=== PATIENT | male | born 1950 | race Caucasian/White ===

== ENCOUNTER 2016-12-31 17:09 | Inpatient (IN) | payer OTHER ==
[2016-12-31] MEDS ORDERED: PROVENTIL IH ONE (22:15)
[2016-12-31] MEDS ORDERED: ATROVENT IH ONE (22:16)
[2017-01-01] MEDS ORDERED: ROCEPHIN/NS 1 GM/50 ML 1 GM/50 ML BAG IV ONE (00:41)
[2017-01-01] MEDS ORDERED: ZITHROMAX PO ONE (00:41)
[2017-01-01] MEDS ORDERED: TYLENOL PO ONE (00:41)
--- NOTE | 2017-01-01 00:41 | Emergency Department Report ---
<PADMINI KELLY - Last Filed: 01/01/17 02:16> ED Chest Pain HPI - General Chief Complaint: Abdominal Pain Stated Complaint: COLD SX/ BODY PAIN Time Seen by Provider: 12/31/16 22:54 - Related Data Home Medications Medication Instructions Recorded Confirmed Last Taken No Known Home Medications [No 12/31/16 12/31/16 Unknown Reported Home Medications] Allergies Allergy/AdvReac Type Severity Reaction Status Date / Time No Known Allergies Allergy Unverified 12/31/16 17:43 ED Review of Systems ROS: Stated complaint: COLD SX/ BODY PAIN Other details as noted in HPI ED Past Medical Hx - Medications Home Medications: Home Medications Medication Instructions Recorded Confirmed Last Taken Type No Known Home Medications [No 12/31/16 12/31/16 Unknown History Reported Home Medications] ED Course Vital Signs 12/31/16 12/31/16 12/31/16 17:47 22:45 22:53 Temperature 97.4 F L Pulse Rate 97 H Pulse Rate [ 95 H 102 H Anterior Bilateral Throughout] Respiratory 17 Rate Respiratory 16 18 Rate [Anterior Bilateral Throughout] Blood Pressure 161/86 O2 Sat by Pulse 97 Oximetry 01/01/17 01:34 Temperature Pulse Rate Pulse Rate [ Anterior Bilateral Throughout] Respiratory 18 Rate Respiratory Rate [Anterior Bilateral Throughout] Blood Pressure O2 Sat by Pulse 97 Oximetry ED Medical Decision Making - Lab Data Result diagrams: 01/01/17 00:47 01/01/17 00:47 Critical care attestation.: If time is entered above; I have spent that time in minutes in the direct care of this critically ill patient, excluding procedure time. ED Disposition Clinical Impression: Pneumonia, Hyponatremia, Hypokalemia Disposition: OP ADMITTED IP TO THIS HOSP Is pt being admited?: Yes Condition: Stable Referrals: PRIMARY CARE, [Primary Care Provider] - 3-5 Days Time of Disposition: 02:17 (Dr Chun/hosp) <YAW JEFFERSON - Last Filed: 01/01/17 02:32> ED Chest Pain HPI - General Source: family Mode of arrival: Ambulatory Limitations: Language Barrier - History of Present Illness Initial Comments: 66-year-old male past medical history none,Pt speaks German. I called the celery stripper service, log #[id number]. Patient denies any past medical history denies smoking drinking or drug use no past surgical history denies any drug allergies. Patient states that for 4 days he has had fever chills and productive cough with yellowish greenish sputum. Patient denies any recent travel. States he has fevers chills body aches and feels generally weak. Patient states he has had chest pain after coughing fits. Has been taking over- the-counter Tylenol and cough medicine with minimal to no relief of his symptoms. Patient is accompanied by both his daughter and his both also speak German and speaks very little to no [place] Citizen. I utilized the celery stripper to speak to the patient in the presence of his family. Patient is awake alert and oriented 3 but states he feels very weak. Onset/Timin -: days(s) Onset: during rest, awoke with symptoms Pain Location: left chest Pain Radiation: none Severity: moderate Severity scale (0 -10): 7 Quality: dull Consistency: constant Improves With: medication-other re: dyspnea Other Symptoms: cough (ovqg-dnf-ocgiwod cold medicine), fever Treatments Prior to Arrival: other (ywci-imt-hraatzx cold medicines) Aspirin use within the Past 7 Days: (0) No AMOS score - Amos Score Age > 65: (1) Yes Aspirin use within the Past 7 Days: (0) No 3 or more CAD Risk Factors: (0) No 2 or more Angina events in past 24 hrs: (1) Yes Known CAD with more than 50% Stenosis: (0) No Elevated Cardiac Markers: (0) No ST Deviation Greater than 0.5mm: (0) No AMOS Score: 2 ED Review of Systems Constitutional: chills, fever, malaise Eyes: denies: eye pain, eye discharge, vision change ENT: denies: ear pain, throat pain Respiratory: cough Cardiovascular: denies: chest pain, palpitations Endocrine: no symptoms reported Gastrointestinal: denies: abdominal pain, nausea, diarrhea Genitourinary: denies: urgency, dysuria Musculoskeletal: denies: back pain, joint swelling, arthralgia Skin: denies: rash, lesions Neurological: denies: headache, weakness, paresthesias Psychiatric: denies: anxiety, depression Hematological/Lymphatic: denies: easy bleeding, easy bruising ED Past Medical Hx - Past Medical History Previous Medical History?: No - Surgical History Past Surgical History?: No - Social History Smoking Status: Never Smoker Substance Use Type: None ED Physical Exam - General Limitations: Language Barrier General appearance: alert, other (patient is somewhat sleepy but arousable) - Head Head exam: Present: atraumatic, normocephalic - Eye Eye exam: Present: normal appearance, PERRL, EOMI - ENT ENT exam: Present: normal exam, mucous membranes moist - Neck Neck exam: Present: normal inspection, full ROM - Respiratory Respiratory exam: Present: respiratory distress, rhonchi (patient has audible rhonchi left lung field) - Cardiovascular Cardiovascular Exam: Present: regular rate, normal rhythm. Absent: systolic murmur, diastolic murmur, rubs, gallop - GI/Abdominal GI/Abdominal exam: Present: soft, normal bowel sounds - Rectal Rectal exam: Present: deferred - Extremities Exam Extremities exam: Present: normal inspection - Back Exam Back exam: Present: normal inspection - Neurological Exam Neurological exam: Present: alert, oriented X3, CN II-XII intact - Psychiatric Psychiatric exam: Present: normal affect, normal mood - Skin Skin exam: Present: warm, dry, intact, normal color. Absent: rash ED Medical Decision Making - Lab Data Result diagrams: 01/01/17 00:47 01/01/17 00:47 - Medical Decision Making A/P: Community-acquired pneumonia, electrolyte abnormalities, chest pain 1-PORT/PSI Score: 113 points Risk Class IV, 8.2-9.3% mortality. Hospitalization recommended based on risk. 2-I discussed case with and Dr. Ferraro hospitalist. Decision to admit and treat patient empirically based on symptoms and lab/radiology findings 3-will replete patient's volume with normal saline and lactated Ringer's maintenance fluid, we'll replete potassium with IV and by mouth potassium, will add magnesium supplementation to absorb potassium. We'll utilize lactated Ringer's in order to restore volume and electrolyte imbalances seen on patient labs 4-patient meets SIRS criteria, qSOFA score 0, no need for ICU as of YET 5- given patient's electrolyte abnormalities will send legionella antigen. Strep and influenza negative
--- NOTE | 2017-01-01 00:50 | XRay Report ---
FINAL REPORT EXAM: XR CHEST ROUTINE 2V HISTORY: cough, SOB COMPARISON: None available. FINDINGS:: Frontal and lateral views of the chest obtained. Heart normal in size. Patchy interstitial and airspace opacity left mid to lower lung with possible trace effusion concerning for pneumonia. Smaller patchy interstitial opacity medial right lung base. No pneumothorax. Mild degenerative changes of the thoracic spine. IMPRESSION:: Findings concerning for bibasilar pneumonia more pronounced on the left.
[2017-01-01] MEDS ORDERED: NACL 0.9% 500 ML 500 ML IV ONE (01:12)
[2017-01-01 01:22] LABS: Basophils % (Auto) 0.1 % (0.0-1.8); Hematocrit 37.2 % (35.5-45.6); Hemoglobin 11.8 gm/dl (11.8-15.2); Mean Corpuscular HGB Conc 32 % (32-34); Mean Corpuscular Volume 72 fl (84-94); Platelet Count 170 K/mm3 (140-440); Red Cell Distribution Width 14.8 % (13.2-15.2); White Blood Count 8.3 K/mm3 (4.5-11.0)
[2017-01-01 01:27] LABS: Mean Corpuscular Hemoglobin 23 pg (28-32)
[2017-01-01 01:46] LABS: Anion Gap 17 mmol/L; Blood Urea Nitrogen 13 mg/dL (9-20); Calcium 8.3 mg/dL (8.4-10.2); Carbon Dioxide 24 mmol/L (22-30); Chloride 90.4 mmol/L (98-107); Glucose 185 mg/dL (75-100); Potassium 3.2 mmol/L (3.6-5.0); Sodium 128 mmol/L (137-145)
[2017-01-01] MEDS ORDERED: ZOFRAN IV ONE (01:51)
[2017-01-01] MEDS ORDERED: MAGNESIUM SULFATE 2GM/50ML 2 GM/50 ML BAG IV ONE (01:51)
[2017-01-01] MEDS ORDERED: KCL 10MEQ/100ML 10 MEQ/100 ML BAG IV ONE (01:52)
[2017-01-01 02:05] LABS: Alanine Aminotransferase 39 units/L (7-56); Albumin 4.1 g/dL (3.9-5); Alkaline Phosphatase 75 units/L (35-129); Bilirubin,Total 0.4 mg/dL (0.1-1.2); Creatine Kinase 170 units/L (55-170); Total Protein 8.2 g/dL (6.3-8.2)
[2017-01-01 02:06] LABS: Bilirubin,Direct < 0.2 mg/dL (0-0.2); Bilirubin,Indirect 0.2 mg/dL; Creatine Kinase MB < 1.0 ng/mL (0.0-4.0)
[2017-01-01] MEDS ORDERED: LACTATED RINGERS 1,000 ML ONE (02:21)
[2017-01-01] MEDS ORDERED: K-DUR PO ONE (02:25)
[2017-01-01] MEDS: LACTATED RINGERS 1,000 ML IV SCH ×2 (02:48→14:39)
--- NOTE | 2017-01-01 03:06 | History and Physical Report ---
History of Present Illness Date of examination: 01/01/17 Chief complaint: Cough History of present illness: 66-year-old [place] man with no significant past medical history presented to the emergency department with complaints of cough productive of yellowish to greenish sputum, fever, chills, generalized weakness and pleuritic chest pain. Patient took [id number]-wdzblwy pain medication and cough medications with no improvement. REVIEW OF SYSTEMS: GENERAL: no weight change, +fatigue, +fever HEAD: no head ache EYES: no blurry vision, no acute visual loss EARS: no hearing loss, no discharge, no earache NOSE: no stuffiness, no sneezing, no discharge MOUTH, THROAT AND NECK: no bleeding gums, no sore throat, no swollen neck CARDIAC: no palpitations, no dyspnea on exertion, no orthopnea, no PND, no edema , no chest pain RESPIRATORY: + shortness of breath, no wheeze, + cough, + sputum, no hemoptysis , no asthma GI: no decreased appetite, no nausea, no vomiting, no dysphagia, no diarrhea, no constipation, no abdominal pain URINARY: no change in frequency, no urgency, no polyuria, no hematuria, no incontinence MUSCULOSKELETAL: no muscle weakness, no pain, no joint stiffness NEUROLOGIC: no loss of sensation/numbness, no tingling, no tremors, no weakness/ paralysis HEMATOLOGIC: no anemia, no easy bruising SKIN: no rashes ENDOCRINE: no heat/cold intolerance, no polyuria, no polydipsia, no thyroid problems, no diabetes PSYCHIATRIC: no anxiety, no depression, no suicidal ideations Past History Past Medical History: No medical history Past Surgical History: No surgical history Social history: full code. denies: smoking, alcohol abuse, IV drug use Family history: no significant family history Medications and Allergies Allergies Allergy/AdvReac Type Severity Reaction Status Date / Time No Known Allergies Allergy Unverified 12/31/16 17:43 Home Medications Medication Instructions Recorded Confirmed Last Taken Type No Known Home Medications [No 12/31/16 12/31/16 Unknown History Reported Home Medications] Active Meds: Active Medications Enoxaparin Sodium (Lovenox) 30 mg SUB-Q QDAY DIANNA Lactated Ringer's (Lactated Ringers) 1,000 mls @ 125 mls/hr IV DIRECT DIANNA Last Admin: 01/01/17 02:48 Dose: 125 mls/hr Azithromycin 500 mg/ Sodium (Chloride) 250 mls @ 250 mls/hr IV Q24HR DIANNA Ceftriaxone Sodium (Rocephin/Ns 1 Gm/50 Ml) 1 gm in 50 mls @ 100 mls/hr IV Q12HR DIANNA PRN Reason: Protocol Exam - Physical Exam Narrative exam: Not in cardiopulmonary distress. The patient appeared well nourished and normally developed. Vital signs as documented. Head exam is unremarkable. No scleral icterus . Neck is without jugular venous distension, thyromegaly, or carotid bruits. Lungs are significant for bibasilar crepitations. Cardiac exam reveals regular rate and Rhythm. First and second heart sounds normal. No murmurs, rubs or gallops. Abdominal exam reveals normal bowel sounds, no masses, no organomegaly and no aortic enlargement. Extremities are nonedematous and both femoral and pedal pulses are normal. PORTAL DEVELOPER: Alert and oriented 3. No focal weakness. - Constitutional Vitals: Temp Pulse Resp BP Pulse Ox 97.4 F L 102 H 18 161/86 97 12/31/16 17:47 12/31/16 22:53 01/01/17 01:34 12/31/16 17:47 01/01/17 01:34 Results - Labs CBC & Chem 7: 01/01/17 00:47 01/01/17 00:47 Labs: Laboratory Last Values WBC 8.3 K/mm3 (4.5-11.0) 01/01/17 00:47 RBC 5.20 M/mm3 (3.65-5.03) H 01/01/17 00:47 Hgb 11.8 gm/dl (11.8-15.2) 01/01/17 00:47 Hct 37.2 % (35.5-45.6) 01/01/17 00:47 MCV 72 fl (84-94) L 01/01/17 00:47 MCH 23 pg (28-32) L 01/01/17 00:47 MCHC 32 % (32-34) 01/01/17 00:47 RDW 14.8 % (13.2-15.2) 01/01/17 00:47 Plt Count 170 K/mm3 (140-440) 01/01/17 00:47 Lymph % (Auto) 7.5 % (13.4-35.0) L 01/01/17 00:47 [place] % (Auto) 4.1 % (0.0-7.3) 01/01/17 00:47 Eos % (Auto) 0.0 % (0.0-4.3) 01/01/17 00:47 Baso % (Auto) 0.1 % (0.0-1.8) 01/01/17 00:47 Lymph # 0.6 K/mm3 (1.2-5.4) L 01/01/17 00:47 [place] # 0.3 K/mm3 (0.0-0.8) 01/01/17 00:47 Eos # 0.0 K/mm3 (0.0-0.4) 01/01/17 00:47 Baso # 0.0 K/mm3 (0.0-0.1) 01/01/17 00:47 Seg Neutrophils % 88.3 % (40.0-70.0) H 01/01/17 00:47 Seg Neutrophils # 7.3 K/mm3 (1.8-7.7) 01/01/17 00:47 VBG pH 7.401 (7.320-7.420) 01/01/17 00:47 Sodium 128 mmol/L (137-145) L 01/01/17 00:47 Potassium 3.2 mmol/L (3.6-5.0) L 01/01/17 00:47 Chloride 90.4 mmol/L (98-107) L 01/01/17 00:47 Carbon Dioxide 24 mmol/L (22-30) 01/01/17 00:47 Anion Gap 17 mmol/L 01/01/17 00:47 BUN 13 mg/dL (9-20) 01/01/17 00:47 Creatinine 1.3 mg/dL (0.8-1.5) 01/01/17 00:47 Estimated GFR 55 ml/min 01/01/17 00:47 BUN/Creatinine Ratio 10.00 % 01/01/17 00:47 Glucose 185 mg/dL (75-100) H 01/01/17 00:47 Lactic Acid 2.5 mmol/L (0.7-2.0) H* 01/01/17 00:47 Calcium 8.3 mg/dL (8.4-10.2) L 01/01/17 00:47 Magnesium 1.8 mg/dL (1.7-2.3) 01/01/17 01:57 Total Bilirubin 0.4 mg/dL (0.1-1.2) 01/01/17 00:47 Direct Bilirubin < 0.2 mg/dL (0-0.2) 01/01/17 00:47 Indirect Bilirubin 0.2 mg/dL 01/01/17 00:47 AST 49 units/L (5-40) H 01/01/17 00:47 ALT 39 units/L (7-56) 01/01/17 00:47 Alkaline Phosphatase 75 units/L (35-129) 01/01/17 00:47 Total Creatine Kinase 170 units/L (55-170) 01/01/17 00:47 CK-MB (CK-2) < 1.0 ng/mL (0.0-4.0) 03 00:47 Troponin T < 0.010 ng/mL (0.00-0.029) 01/01/17 00:47 NT-Pro-B Natriuret Pep 482.5 pg/mL (0-900) 01/01/17 00:47 Total Protein 8.2 g/dL (6.3-8.2) 01/01/17 00:47 Albumin 4.1 g/dL (3.9-5) 01/01/17 00:47 Albumin/Globulin Ratio 1.0 % 01/01/17 00:47 - Imaging and Cardiology Chest x-ray: report reviewed (bibasilar infiltrates) Assessment and Plan Assessment and plan: Bilateral basilar pneumonia Severe sepsis - Elevated lactic acid level - Chest x-ray significant for bibasilar pneumonia - Patient is on IV ceftriaxone, azithromycin - Oxygen support DVT prophylaxis - Lovenox Disposition - admit to medical floor Advance Directives: Yes VTE prophylaxis?: Chemical Plan of care discussed with patient/family: Yes
[2017-01-01 04:55] LABS: Bilirubin,Urine NEG (Negative); Blood,Urine NEG (Negative); Ketones,Urine TR mg/dL (Negative); Leukocyte Esterase,Urine NEG (Negative); Mucus,Urine FEW /HPF; Nitrite,Urine NEG (Negative); Urobilinogen,Urine < 2.0 mg/dL (<2.0)
--- NOTE | 2017-01-01 08:33 | Admit Criteria Form ---
Admission Criteria Documentation: SEVERE SEPSIS Clinical Indications for Admission to Inpatient Care (Place 'X' for any and all applicable criteria): Hospital admission is needed for appropriate care of the patient because of ANY ONE of the following: []I. Hemodynamic instability indicated by ANY ONE of the following(1)(2)(3)(4 )(5): []a. Vital sign abnormality not readily corrected by appropriate treatment within 12 to 24 hours indicated by ANY ONE of the following: []i) Tachycardia that persists despite appropriate treatment []ii) Hypotension that persists despite appropriate treatment []iii) Orthostatic vital sign changes that persist despite appropriate treatment [X]b. Vital sign abnormality that is severe indicated by ANY ONE of the following: [X]i.Inadequate perfusion indicated by ANY ONE of the following : [X]1) Lactic acidosis (greater than 2 mmol/L) []2) New abnormal capillary refill (greater than 3 seconds) []3) Reduced urine output []4) New altered mental status []5) Myocardial Ischemia []ii. Mean arterial pressure [A] less than 60 mm Hg []iii. Mean arterial pressure[A] less than 70 mm Hg after 30 minutes of appropriate treatment (eg, fluid resuscitation) []iv. Sustained heart rate greater than 120 beats per minute in adult []v. IV inotropic or vasopressor medication required to maintain adequate blood pressure or perfusion []II. Systemic or infectious condition causing severe symptoms or findings not responsive to emergency or observation care treatment (as appropriate) indicated by ANY ONE of the following: []a. Cardiac arrhythmias of immediate concern(1)(2)(3) []b. Severe endocrine disorder (eg, thyrotoxicosis, adrenal insufficiency)(4)(5) []c. Seizures (eg, new or recurrent)(6) []d. New-onset end organ failure or dysfunction as indicated by ANY ONE of the following: []i. Acute unexplained hypoxemia (eg, not from lung infection or chronic disease)(7)(8)(9) []ii. Acute renal failure as indicated by new onset of ANY ONE of the following(10)(11)(12)(13)(14): []1) 3-fold rise in serum creatinine from baseline []2) Serum creatinine greater than 4 mg/dL (354 micromoles/L) with acute rise greater than 0.5 mg/dL (44.2 micromoles/L) []3) Reduction of more than 75% in estimated glomerular filtration rate from baseline. []4) Estimated glomerular filtration rate less than 35 mL/min/1.73m2 ( 0.59 mL/sec/1.73m2) in child younger than 18 years. []5) Cessation of urine output indicated by ALL of the following: []A. Adequate volume status []B. Inadequate urine output as indicated by ANY ONE of the following: []a. Urine output less than 0.3 mL/kg/hr for 24 hours []b. Anuria (urine output less than 0.1 mL/kg/hr) for 12 hours []iii. Acute mental status changes(15) []iv. Acute hepatic failure (eg, plasma bilirubin greater than 4 mg/ dL (68 micromoles/L), new INR greater than 2.0)(16)(17) []e. Unmanageable nausea and vomiting(18) []f. New-onset or uncontrolled central diabetes insipidus(19)(20) []g. Clinically significant dehydration(18)(21) []h. Hypoglycemia(22) []i. Acidosis (pH less than 7.35) or alkalosis (pH greater than 7.45)( 22)(23) []j. Toxic drug level that indicates need for specific monitoring or treatment(24)(25) [X]k. Severe electrolyte abnormalities indicated by ALL of the following (1)(2)(3): [X]i. Electrolytes and associated findings are not as expected for patient baseline or acceptable treatment effects. [X]ii. Severe abnormalities indicated by ANY ONE of the following: [X]1) Sodium less than 130 mEq/L (mmol/L) (new) []2) Sodium less than 135 mEq/L (mmol/L) with ANY ONE of the following: []A. Uncorrectable (to near normal or chronic baseline) after trial of outpatient and emergency treatment []B. Altered mental status []C. Seizures []D. Severe medical etiology requiring inpatient management (eg , heart failure, hypovolemia) []3) Sodium greater than 155 mEq/L (mmol/L) []4) Sodium greater than 150 mEq/L (mmol/L) with ANY ONE of the following: []A. Uncorrectable (to near normal or chronic baseline) with outpatient and emergency treatment []B. Altered mental status []C. Seizures []D. Severe medical etiology (eg, hypovolemia, diabetes insipidus) []5) Potassium less than 2.5 mEq/L (mmol/L) despite outpatient and emergency treatment []6) Potassium less than 3 mEq/L (mmol/L) with ANY ONE of the following : []A. Weakness []B. Cardiac abnormality (eg, arrhythmia, conduction disturbance ) []C. Cardiac ischemia []D. Ileus []E. Ongoing medical cause requiring inpatient management (eg, acute renal wasting or SIADH) []F. Other severe symptoms []7) Potassium greater than 6.5 mEq/L (mmol/L) []8) Potassium greater than 5 mEq/L (mmol/L) with ANY ONE of the following: []A. Uncorrectable (to near normal or chronic baseline) with outpatient and emergency treatment []B. Severe ECG findings[A] []C. Acute worsening of renal failure (creatinine greater than 2.5 mg/dL (221 micromoles/L) or significant elevation for age and size) []D. Severe weakness []E. Severe medical etiology (eg, hemolysis, infection, drug overdose) []9) Calcium less than 7 mg/dL (1.75 mmol/L) despite outpatient and emergency treatment(5) []10) Calcium less than 8 mg/dL (2 mmol/L) with significant symptoms or findings (eg, altered mental status, muscle spasms, seizures, breathing difficulty, cardiac abnormality (eg, arrhythmia or conduction disturbance))(5) []11) Calcium greater than 14 mg/dL (3.5 mmol/L)(5) []12) Calcium greater than 12 mg/dL (3 mmol/L) with ANY ONE of the following(5): []A. Uncorrectable (to near normal or chronic baseline) with outpatient and emergency treatment []B. Significant dehydration or hypovolemia as indicated by ALL of the following(3)(6)(7): []a. Not resolved with initial treatments []b. Clinically significant dehydration as indicated by ANY ONE of the following: [](1) Vomiting refractory to outpatient treatment (ie, precluding oral rehydration) [](2) Inability to drink [](3) Hypernatremia or other electrolyte abnormality unable to be corrected with outpatient and emergency treatment [](4) Failure to remain hydrated with outpatient therapy [](5) Reduced urine output [](6) Hypotension [](7) Serious cause for dehydration requiring acute hospitalization ( eg, bowel obstruction, increased intracranial pressure, infectious cause) [](8) Child with ANY ONE of the following(8): [](i) Severe abdominal tenderness [](ii) Adequate care not available at home [](iii) Severe dehydration (greater than 9% loss of body weight) []C. Significant symptoms or findings (eg, altered mental status , cardiac abnormality (eg, arrhythmia, conduction disturbance), malignant etiology requiring inpatient treatment) []13) Phosphorus less than 1 mg/dL (0.32 mmol/L) []14) Phosphorus less than 1.5 mg/dL (0.48 mmol/L) with ANY ONE of the following: []A. Patient unresponsive to outpatient and emergency treatment []B. Significant symptoms or findings (eg, weakness, altered mental status, breathing difficulty, seizures, rhabdomyolysis) []15) Phosphorus greater than 10 mg/dL (3.2 mmol/L) []16) Phosphorus greater than 4.5 mg/dL (1.45 mmol/L) (new) with ANY ONE of the following: []A. Severe medical etiology (eg, crush injury, acute renal failure) []B. Associated hypocalcemia with significant findings (eg, neurologic symptoms, altered mental status, muscle spasms, seizures, breathing difficulty, cardiac abnormality (eg, arrhythmia, conduction disturbance)) []16) Magnesium less than 1 mg/dL (0.41 mmol/L) []17) Magnesium less than 1.5 mg/dL (0.62 mmol/L) with ANY ONE of the following: []A. Patient unresponsive to outpatient and emergency treatment []B. Associated hypocalcemia with significant findings (eg, altered mental status, muscle spasms, seizures, breathing difficulty, cardiac abnormality (eg, arrhythmia, conduction disturbance)) []C. Associated hypokalemia (potassium less than 3 mEq/L (mmol/L )) with risk of arrhythmia []18) Magnesium greater than 4 mEq/L (2 mmol/L) []19) Magnesium greater than 2.5 mEq/L (1.25 mmol/L) with significant symptoms or findings (eg, weakness, altered mental status, cardiac abnormality (eg, arrhythmia, conduction disturbance), breathing difficulty, severe medical etiology (eg, renal failure, hypovolemia)) []20) Uric acid greater than 20 mg/dL (1190 micromoles/L)(9) []21) Uric acid greater than 8 mg/dL (476 micromoles/L) with significant symptoms or findings of tumor lysis syndrome (eg, creatinine greater than 1.5 times upper limit of normal, cardiac abnormality (eg , arrhythmia, conduction disturbance), seizure)(9) [X]III. High fever or other high-risk infection situation as indicated by ANY ONE of the following(26)(27)(28): []a. Outpatient and observation care antimicrobial treatment unavailable, not effective, or not appropriate []b. Documented bacteremia []c. Temperature greater than 104.9 degrees F (40.5 degrees C) (oral) [X]d. Temperature greater than 103.1 degrees F (39.5 degrees C) (oral) or less than 96.8 degrees F (36 degrees C) (rectal) that does not respond to emergency treatment and observation care []IV. High-risk febrile neutropenia[A] as indicated by ANY ONE of the following(29)(30)(31)(32): []a. Profound neutropenia[B] anticipated to extend for more than 7 days []b. Hemodynamic instability []c. Hypoxemia []d. Tachypnea []e. Altered mental status []f. New-onset abdominal pain []g. New-onset vomiting or diarrhea []h. Oral or gastrointestinal mucositis that interferes with swallowing or causes severe diarrhea []i. Focal infection (eg, cellulitis, pneumonia, central line or catheter infection, perirectal abscess) []j. Renal insufficiency (eg, GFR of less than 30 mL/min/1.73m2 (0.5 mL/sec /1.73m2)). []k. Severe liver dysfunction (transaminase levels greater than 5 times normal) []l. Platelet count less than 50,000/mm3 (50 x109/L)(33) []m. Leukemia or lymphoma induction therapy []n. Leukemia not in complete remission or with evidence of disease progression []o. Bone marrow transplant patient []p. Alemtuzumab being used for therapy []q. [employer] Association for Supportive Care in Cancer (MASCC) Risk Index score of less than 21[C](33)(35). []V. Isolation required (eg, tuberculosis that requires isolation, Ebola infection)[D](36)(37)(38)(39)(40) []. Gangrene that requires treatment beyond emergency or observation level care(41)(42) []VII. Antitoxin administration and ongoing observation required (eg, tetanus, botulism)(43)(44) [X]. Suspected infection with rapid progression or severe symptoms as indicated by ANY ONE of the following(45): []a. Streptococcal or staphylococcal toxic shock(46) []b. Diphtheria(47) []c. Hantavirus(48) []d. Severe acute respiratory syndrome(8)(49) []e. Anthrax(50) []f. Ebola[D](36)(37)(38) []g. Necrotizing soft tissue infection(41)(42) []h. Plague(50) [X]i. Other suspected infection that requires care beyond emergency or observation level care []VII. Severe adverse drug or systemic toxin reaction as indicated by ANY ONE of the following(24): []a. Serotonin syndrome(51)(52) []b. Neuroleptic malignant syndrome(51)(52) []c. Cholinergic syndrome with severe symptoms (eg, bronchorrhea, weakness , mental status changes, seizures)(53) []d. Anticholinergic syndrome []e. Sympathetic syndrome with severe symptoms (eg, seizures, mental status changes, cardiac dysrhythmias) []f. Other severe adverse drug or systemic toxin reaction that remains after emergency or observation level care (as appropriate) []VIII. Allergic reaction with severe symptoms (not responsive to emergency or observation care treatment as appropriate), including ANY ONE of the following(54): []a. Airway edema (pharyngeal, epiglottic, or laryngeal edema) []b. Stridor []c. Respiratory failure []d. Bronchospasm []e. Hypotension []IX. Environmental emergency (not responsive to emergency or observation care treatment as appropriate) as indicated by ANY ONE of the following(55)(56): []a. Hyperthermia []b. Heat stroke []c. Heat exhaustion []d. Hypothermia (temperature less than 95 degrees F (35 degrees C) rectal) (57) []e. Electrocution(58) []X. Complications of transplanted organ (ie, not covered elsewhere)[E] indicated by ANY ONE of the following(59): []a. Acute graft rejection (or graft vs. host disease)[F] requiring inpatient management (eg, intravenous immunosuppression)(60)(61)(62)( 63) []b. Acute failure of transplanted organ necessitating inpatient care (eg, cannot be managed in other setting) []c. Infection requiring inpatient management (eg, Hemodynamic instability, need for intravenous antimicrobial treatment)(64)(65) []d. Other complication of transplanted organ requiring inpatient management []XI. Systemic or Infectious Condition condition, symptom, or finding for which emergency and observation care have failed or are not considered appropriate. See General Criteria: Observation Care, General Admission Criteria or Pediatric General Admission Criteria guideline as appropriate. (Contents from SEVERE SEPSIS and SYSTEMIC OR INFECTIOUS CONDITION clinical indications for admission to inpatient care have been integrated in this form) The [facility] content [facility] by [facility] has been revised. The portions of the content which have been revised are identified through the use of italic text or in bold and [facility] has neither reviewed nor approved the modified material. All other unmodified content is copyright [facility]. Please see references footnoted in the original [facility] edition 2016 Admission Criteria Met: Yes
[2017-01-01] MEDS ORDERED: LOVENOX SUB-Q SCH (10:00)
[2017-01-01] MEDS: LOVENOX SUB-Q SCH (14:37)
[2017-01-01] MEDS: ROCEPHIN/NS 1 GM/50 ML 1 GM/50 ML BAG IV SCH ×2 (14:38→21:50)
--- NOTE | 2017-01-01 15:21 | Event Note ---
Date: 01/01/17 Patient seen and evaluated in his room this morning medical records reviewed Admitted this morning with the bilateral pneumonia left more than right On IV antibiotics and supportive care Mild elevation of lactic acid probably secondary to sepsis Medical records reviewed Discussed with the nurse, no new events reported Continue current management Plan of care discussed with the patient as well as the nurse
[2017-01-01] MEDS: TYLENOL PO PRN (16:31)
[2017-01-01] MEDS: NACL 0.9% 1000 ML 1,000 ML IV SCH (18:13)
[2017-01-01] MEDS: ZITHROMAX 500 MG in NACL 0.9% 250ML 250 ML IV SCH (21:50)
[2017-01-02 05:28] LABS: Basophils % (Auto) 0.3 % (0.0-1.8); Hematocrit 37.7 % (35.5-45.6); Hemoglobin 11.8 gm/dl (11.8-15.2); Mean Corpuscular HGB Conc 31 % (32-34); Mean Corpuscular Volume 72 fl (84-94); Platelet Count 147 K/mm3 (140-440); Red Blood Count 5.25 M/mm3 (3.65-5.03); Red Cell Distribution Width 15.3 % (13.2-15.2)
[2017-01-02 05:34] LABS: Mean Corpuscular Hemoglobin 23 pg (28-32)
[2017-01-02 05:36] LABS: Anion Gap 16 mmol/L; BUN/Creatinine Ratio 11.81; Blood Urea Nitrogen 13 mg/dL (9-20); Calcium 7.6 mg/dL (8.4-10.2); Carbon Dioxide 25 mmol/L (22-30); Chloride 101.3 mmol/L (98-107); Glucose 148 mg/dL (75-100); Magnesium 2.1 mg/dL (1.7-2.3); Sodium 138 mmol/L (137-145)
[2017-01-02] MEDS: TYLENOL PO PRN ×2 (11:26→20:39)
[2017-01-02] MEDS: LOVENOX SUB-Q SCH (11:27)
[2017-01-02] MEDS: ROCEPHIN/NS 1 GM/50 ML 1 GM/50 ML BAG IV SCH ×2 (11:28→21:02)
[2017-01-02] MEDS: NACL 0.9% 1000 ML 1,000 ML IV SCH (11:29)
[2017-01-02] MEDS ORDERED: FLUARIX QUAD 2016-2017(36 MOS+) IM ONE (12:00)
[2017-01-02] MEDS ORDERED: PNEUMOVAX 23 IM ONE (12:00)
--- NOTE | 2017-01-02 17:18 | Progress Note ---
Assessment and Plan Assessment and plan: --Kaiden basal pneumonia Continue IV antibiotics, oxygen titrated to O2 sats more than 90%, nebulizers as needed Supportive care Follow up chest x-ray tomorrow to check for improvement , --Sepsis secondary to bilateral pneumonia/elevated lactic acid Follow cultures, continue current antibiotics ceftriaxone and azithromycin --Hyponatremia, corrected --Hypokalemia, corrected --DVT prophylaxis with Lovenox --Out of bed to chair and ambulate as tolerated --Full CODE STATUS Closely monitor the patient had just the management as needed Possible discharge in 1-2 days if stable History Interval history: Patient seen and evaluated medical records reviewed Patient feels better no new complaints Alert and awake not in acute distress Vital signs reviewed Hospitalist Physical - Constitutional Vitals: Temp Pulse Resp BP Pulse Ox 99.5 F 69 16 105/64 97 01/02/17 15:54 01/02/17 15:54 01/02/17 15:54 01/02/17 15:54 01/01/17 20:00 General appearance: Present: no acute distress, well-nourished - EENT Eyes: Present: PERRL, EOM intact - Neck Neck: Present: supple, normal ROM - Respiratory Respiratory effort: normal Respiratory: bilateral: diminished, rhonchi, negative: rales, wheezing - Cardiovascular Rhythm: regular Heart Sounds: Present: S1 & S2 - Extremities Extremities: no ischemia, pulses intact, pulses symmetrical Peripheral Pulses: within normal limits - Abdominal General gastrointestinal: soft, non-tender, non-distended, normal bowel sounds - Integumentary Integumentary: Present: clear, warm - Psychiatric Psychiatric: appropriate mood/affect, cooperative - Neurologic Neurologic: CNII-XII intact, moves all extremities Results - Labs CBC & Chem 7: 01/02/17 04:41 01/02/17 04:41 Labs: Laboratory Last Values WBC 6.0 K/mm3 (4.5-11.0) 01/02/17 04:41 RBC 5.25 M/mm3 (3.65-5.03) H 01/02/17 04:41 Hgb 11.8 gm/dl (11.8-15.2) 01/02/17 04:41 Hct 37.7 % (35.5-45.6) 01/02/17 04:41 MCV 72 fl (84-94) L 01/02/17 04:41 MCH 23 pg (28-32) L 01/02/17 04:41 MCHC 31 % (32-34) L 01/02/17 04:41 RDW 15.3 % (13.2-15.2) H 01/02/17 04:41 Plt Count 147 K/mm3 (140-440) 01/02/17 04:41 Lymph % (Auto) 15.7 % (13.4-35.0) 01/02/17 04:41 Nance % (Auto) 6.0 % (0.0-7.3) 01/02/17 04:41 Eos % (Auto) 0.0 % (0.0-4.3) 01/02/17 04:41 Baso % (Auto) 0.3 % (0.0-1.8) 01/02/17 04:41 Lymph # 0.9 K/mm3 (1.2-5.4) L 01/02/17 04:41 Nance # 0.4 K/mm3 (0.0-0.8) 01/02/17 04:41 Eos # 0.0 K/mm3 (0.0-0.4) 01/02/17 04:41 Baso # 0.0 K/mm3 (0.0-0.1) 01/02/17 04:41 Seg Neutrophils % 78.0 % (40.0-70.0) H 01/02/17 04:41 Seg Neutrophils # 4.7 K/mm3 (1.8-7.7) 01/02/17 04:41 VBG pH 7.401 (7.320-7.420) 01/01/17 00:47 Sodium 138 mmol/L (137-145) D 01/02/17 04:41 Potassium 4.0 mmol/L (3.6-5.0) D 01/02/17 04:41 Chloride 101.3 mmol/L (98-107) 01/02/17 04:41 Carbon Dioxide 25 mmol/L (22-30) 01/02/17 04:41 Anion Gap 16 mmol/L 01/02/17 04:41 BUN 13 mg/dL (9-20) 01/02/17 04:41 Creatinine 1.1 mg/dL (0.8-1.5) 01/02/17 04:41 Estimated GFR > 60 ml/min 01/02/17 04:41 BUN/Creatinine Ratio 11.81 % 01/02/17 04:41 Glucose 148 mg/dL (75-100) H 01/02/17 04:41 POC Glucose 128 (70-105) H 01/01/17 15:21 Lactic Acid 1.4 mmol/L (0.7-2.0) 01/02/17 04:41 Calcium 7.6 mg/dL (8.4-10.2) L 01/02/17 04:41 Magnesium 2.1 mg/dL (1.7-2.3) 01/02/17 04:41 Total Bilirubin 0.4 mg/dL (0.1-1.2) 01/01/17 00:47 Direct Bilirubin < 0.2 mg/dL (0-0.2) 01/01/17 00:47 Indirect Bilirubin 0.2 mg/dL 01/01/17 00:47 AST 49 units/L (5-40) H 01/01/17 00:47 ALT 39 units/L (7-56) 01/01/17 00:47 Alkaline Phosphatase 75 units/L (35-129) 01/01/17 00:47 Total Creatine Kinase 170 units/L (55-170) 01/01/17 00:47 CK-MB (CK-2) < 1.0 ng/mL (0.0-4.0) 01/01/17 00:47 Troponin T < 0.010 ng/mL (0.00-0.029) 01/01/17 00:47 NT-Pro-B Natriuret Pep 482.5 pg/mL (0-900) 01/01/17 00:47 Total Protein 8.2 g/dL (6.3-8.2) 01/01/17 00:47 Albumin 4.1 g/dL (3.9-5) 01/01/17 00:47 Albumin/Globulin Ratio 1.0 % 01/01/17 00:47 Urine Color Yellow (Yellow) 01/01/17 04:15 Urine Turbidity Clear (Clear) 01/01/17 04:15 Urine pH 5.0 (5.0-7.0) 01/01/17 04:15 Ur Specific Ceiba 1.023 (1.003-1.030) 01/01/17 04:15 Urine Protein 30 mg/dl mg/dL (Negative) 01/01/17 04:15 Urine Glucose (UA) 150 mg/dL (Negative) 01/01/17 04:15 Urine Ketones Tr mg/dL (Negative) 01/01/17 04:15 Urine Blood Neg (Negative) 01/01/17 04:15 Urine Nitrite Neg (Negative) 01/01/17 04:15 Ur Reducing Substances Not Reportable 01/01/17 04:15 Urine Bilirubin Neg (Negative) 01/01/17 04:15 Urine Ictotest Not Reportable 01/01/17 04:15 Urine Urobilinogen < 2.0 mg/dL (<2.0) 01/01/17 04:15 Ur Leukocyte Esterase Neg (Negative) 01/01/17 04:15 Urine WBC (Auto) 2.0 /HPF (0.0-6.0) 01/01/17 04:15 Urine RBC (Auto) 1.0 /HPF (0.0-6.0) 01/01/17 04:15 U Epithel Cells (Auto) < 1.0 /HPF (0-13.0) 01/01/17 04:15 Urine Mucus Few /HPF 01/01/17 04:15
[2017-01-02] MEDS: ZITHROMAX 500 MG in NACL 0.9% 250ML 250 ML IV SCH (23:17)
[2017-01-03] MEDS: TYLENOL PO PRN ×2 (02:31→14:07)
[2017-01-03] MEDS: NACL 0.9% 1000 ML 1,000 ML IV SCH ×2 (02:32→18:27)
[2017-01-03 05:20] LABS: Anion Gap 15 mmol/L; BUN/Creatinine Ratio 13.33; Blood Urea Nitrogen 12 mg/dL (9-20); Calcium 7.4 mg/dL (8.4-10.2); Carbon Dioxide 24 mmol/L (22-30); Chloride 99.6 mmol/L (98-107); Glucose 104 mg/dL (75-100); Potassium 3.7 mmol/L (3.6-5.0); Sodium 135 mmol/L (137-145)
--- NOTE | 2017-01-03 09:43 | XRay Report ---
Chest 2 views: Compared to 12/31/16. History: Followup of bilateral pneumonia. Findings: Normal cardiomediastinal silhouette. Trachea is midline. Reticular interstitial changes with honeycombing is noted in the left lower lobe. Other possibility would be multiple lung cysts or bulla localized to left lower lobe. Superimposed pneumonitis if present cannot be entirely excluded. No significant interval change compared to previous study. Right lung appears unremarkable. Impression: Findings as detailed above. Recommend CT scan for further evaluation.
[2017-01-03] MEDS: LOVENOX SUB-Q SCH (10:54)
[2017-01-03] MEDS: TUMS PO SCH ×2 (10:54→22:18)
[2017-01-03] MEDS: ROCEPHIN/NS 1 GM/50 ML 1 GM/50 ML BAG IV SCH ×2 (10:55→22:12)
[2017-01-03] MEDS ORDERED: NACL ONE ×2 (12:18→14:10)
[2017-01-03] MEDS ORDERED: PROVENTIL IH PRN (13:59)
--- NOTE | 2017-01-03 14:09 | Progress Note ---
Assessment and Plan Assessment and plan: --Kaiden basal pneumonia on IV antibiotics, oxygen titrated to O2 sats more than 90%, nebulizers as needed Supportive care Follow up chest x-ray reticuloendothelial/honeycombing appearance on the left side [facility] for assistance with management, --Sepsis secondary to bilateral pneumonia/elevated lactic acid/fever Follow cultures, continue current antibiotics ceftriaxone and azithromycin --Hyponatremia, hypokalemia Corrected --DVT prophylaxis with Lovenox --Out of bed to chair and ambulate as tolerated --Full CODE STATUS Closely monitor the patient had just the management as needed Possible discharge in 1-2 days if stable History Interval history: Patient seen and evaluated this morning medical records reviewed Patient feels better, however repeat chest x-ray show multiple findings consistent with left sided reticuloendothelial and honeycombing appearance ,With multiple cysts Patient is febrile Alert and awake not in acute distress Hospitalist Physical - Constitutional Vitals: Temp Pulse Resp BP Pulse Ox 99.4 F 88 20 126/78 98 01/03/17 05:21 01/02/17 22:59 01/02/17 22:59 01/02/17 22:59 01/02/17 22:59 General appearance: Present: no acute distress, well-nourished - EENT Eyes: Present: PERRL, EOM intact - Neck Neck: Present: supple, normal ROM - Respiratory Respiratory effort: normal Respiratory: bilateral: diminished, rhonchi, negative: rales, wheezing - Cardiovascular Rhythm: regular Heart Sounds: Present: S1 & S2 - Extremities Extremities: no ischemia, pulses intact, pulses symmetrical Peripheral Pulses: within normal limits - Abdominal General gastrointestinal: soft, non-tender, non-distended, normal bowel sounds - Integumentary Integumentary: Present: clear, warm - Psychiatric Psychiatric: appropriate mood/affect, cooperative - Neurologic Neurologic: CNII-XII intact, moves all extremities Results - Labs CBC & Chem 7: 01/02/17 04:41 01/03/17 04:34 Labs: Laboratory Last Values WBC 6.0 K/mm3 (4.5-11.0) 01/02/17 04:41 RBC 5.25 M/mm3 (3.65-5.03) H 01/02/17 04:41 Hgb 11.8 gm/dl (11.8-15.2) 01/02/17 04:41 Hct 37.7 % (35.5-45.6) 01/02/17 04:41 MCV 72 fl (84-94) L 01/02/17 04:41 MCH 23 pg (28-32) L 01/02/17 04:41 MCHC 31 % (32-34) L 01/02/17 04:41 RDW 15.3 % (13.2-15.2) H 01/02/17 04:41 Plt Count 147 K/mm3 (140-440) 01/02/17 04:41 Lymph % (Auto) 15.7 % (13.4-35.0) 01/02/17 04:41 [place] % (Auto) 6.0 % (0.0-7.3) 01/02/17 04:41 Eos % (Auto) 0.0 % (0.0-4.3) 01/02/17 04:41 Baso % (Auto) 0.3 % (0.0-1.8) 01/02/17 04:41 Lymph # 0.9 K/mm3 (1.2-5.4) L 01/02/17 04:41 [place] # 0.4 K/mm3 (0.0-0.8) 01/02/17 04:41 Eos # 0.0 K/mm3 (0.0-0.4) 01/02/17 04:41 Baso # 0.0 K/mm3 (0.0-0.1) 01/02/17 04:41 Seg Neutrophils % 78.0 % (40.0-70.0) H 01/02/17 04:41 Seg Neutrophils # 4.7 K/mm3 (1.8-7.7) 01/02/17 04:41 VBG pH 7.401 (7.320-7.420) 01/01/17 00:47 Sodium 135 mmol/L (137-145) L 01/03/17 04:34 Potassium 3.7 mmol/L (3.6-5.0) 01/03/17 04:34 Chloride 99.6 mmol/L (98-107) 01/03/17 04:34 Carbon Dioxide 24 mmol/L (22-30) 01/03/17 04:34 Anion Gap 15 mmol/L 01/03/17 04:34 BUN 12 mg/dL (9-20) 01/03/17 04:34 Creatinine 0.9 mg/dL (0.8-1.5) 01/03/17 04:34 Estimated GFR > 60 ml/min 01/03/17 04:34 BUN/Creatinine Ratio 13.33 % 01/03/17 04:34 Glucose 104 mg/dL (75-100) H 01/03/17 04:34 POC Glucose 128 (70-105) H 01/01/17 15:21 Lactic Acid 1.4 mmol/L (0.7-2.0) 01/02/17 04:41 Calcium 7.4 mg/dL (8.4-10.2) L 01/03/17 04:34 Magnesium 2.1 mg/dL (1.7-2.3) 01/02/17 04:41 Total Bilirubin 0.4 mg/dL (0.1-1.2) 01/01/17 00:47 Direct Bilirubin < 0.2 mg/dL (0-0.2) 01/01/17 00:47 Indirect Bilirubin 0.2 mg/dL 01/01/17 00:47 AST 49 units/L (5-40) H 01/01/17 00:47 ALT 39 units/L (7-56) 01/01/17 00:47 Alkaline Phosphatase 75 units/L (35-129) 01/01/17 00:47 Total Creatine Kinase 170 units/L (55-170) 01/01/17 00:47 CK-MB (CK-2) < 1.0 ng/mL (0.0-4.0) 01/01/17 00:47 Troponin T < 0.010 ng/mL (0.00-0.029) 01/01/17 00:47 NT-Pro-B Natriuret Pep 482.5 pg/mL (0-900) 01/01/17 00:47 Total Protein 8.2 g/dL (6.3-8.2) 01/01/17 00:47 Albumin 4.1 g/dL (3.9-5) 01/01/17 00:47 Albumin/Globulin Ratio 1.0 % 01/01/17 00:47 Urine Color Yellow (Yellow) 01/01/17 04:15 Urine Turbidity Clear (Clear) 01/01/17 04:15 Urine pH 5.0 (5.0-7.0) 01/01/17 04:15 Ur Specific [place] 1.023 (1.003-1.030) 01/01/17 04:15 Urine Protein 30 mg/dl mg/dL (Negative) 01/01/17 04:15 Urine Glucose (UA) 150 mg/dL (Negative) 01/01/17 04:15 Urine Ketones Tr mg/dL (Negative) 01/01/17 04:15 Urine Blood Neg (Negative) 01/01/17 04:15 Urine Nitrite Neg (Negative) 01/01/17 04:15 Ur Reducing Substances Not Reportable 01/01/17 04:15 Urine Bilirubin Neg (Negative) 01/01/17 04:15 Urine Ictotest Not Reportable 01/01/17 04:15 Urine Urobilinogen < 2.0 mg/dL (<2.0) 01/01/17 04:15 Ur Leukocyte Esterase Neg (Negative) 01/01/17 04:15 Urine WBC (Auto) 2.0 /HPF (0.0-6.0) 01/01/17 04:15 Urine RBC (Auto) 1.0 /HPF (0.0-6.0) 01/01/17 04:15 U Epithel Cells (Auto) < 1.0 /HPF (0-13.0) 01/01/17 04:15 Urine Mucus Few /HPF 01/01/17 04:15
--- NOTE | 2017-01-03 15:34 | Consultation ---
History of Present Illness Consult date: 01/03/17 Requesting physician: ANUJA SAWYER Reason for consult: pneumonia, pulmonary fibrosis History of present illness: PULMONARY/CCM CONSULT NOTE (Full dictation # [id number]) Please see dictated notes for full details Past History Past Medical History: No medical history Past Surgical History: No surgical history Social history: full code. denies: smoking, alcohol abuse, IV drug use Family history: no significant family history Medications and Allergies Allergies Allergy/AdvReac Type Severity Reaction Status Date / Time No Known Allergies Allergy Unverified 12/31/16 17:43 Home Medications Medication Instructions Recorded Confirmed Last Taken Type No Known Home Medications [No 12/31/16 12/31/16 Unknown History Reported Home Medications] Active Meds: Active Medications Acetaminophen (Tylenol) 650 mg PO Q4H PRN PRN Reason: Pain, Mild (1-3) Last Admin: 01/03/17 14:07 Dose: 650 mg Albuterol (Proventil) 2.5 mg IH Q4HRT PRN PRN Reason: Shortness Of Breath Calcium Carbonate/Glycine (Tums) 500 mg PO BID [facility] Last Admin: 01/03/17 10:54 Dose: 500 mg Enoxaparin Sodium (Lovenox) 40 mg SUB-Q QDAY@1000 [facility] Last Admin: 01/03/17 10:54 Dose: 40 mg Azithromycin 500 mg/ Sodium (Chloride) 250 mls @ 250 mls/hr IV Q24HR@2200 [facility] Last Admin: 01/02/17 23:17 Dose: 250 mls/hr Ceftriaxone Sodium (Rocephin/Ns 1 Gm/50 Ml) 1 gm in 50 mls @ 100 mls/hr IV Q12HR DIANNA PRN Reason: Protocol Last Admin: 01/03/17 10:55 Dose: 100 mls/hr Sodium Chloride (Nacl 0.9% 1000 Ml) 1,000 mls @ 75 mls/hr IV DIRECT [facility] Last Admin: 01/03/17 02:32 Dose: 75 mls/hr Physical Examination Vital signs: Vital Signs Temp Pulse Resp BP Pulse Ox 97.4 F L 97 H 17 161/86 97 12/31/16 17:47 12/31/16 17:47 12/31/16 17:47 12/31/16 17:47 12/31/16 17:47 Results - Laboratory Findings CBC and BMP: 01/02/17 04:41 01/03/17 04:34 Abnormal lab findings: Abnormal Labs 01/01/17 01/02/17 01/02/17 15:21 04:41 04:41 RBC 5.25 H MCV 72 L MCH 23 L MCHC 31 L RDW 15.3 H Lymph # 0.9 L Seg Neutrophils % 78.0 H Sodium Glucose 148 H POC Glucose 128 H Calcium 7.6 L 01/03/17 04:34 RBC MCV MCH MCHC RDW Lymph # Seg Neutrophils % Sodium 135 L Glucose 104 H POC Glucose Calcium 7.4 L
--- NOTE | 2017-01-03 16:35 | Cat Scan Report ---
FINAL REPORT PROCEDURE: CT CHEST W CON TECHNIQUE: Computerized axial tomography of the chest was performed during the IV injection of iodinated nonionic contrast. HISTORY: abnormal CXR COMPARISON: X-ray 12/31/2016 TECHNICAL QUALITY: Satisfactory. FINDINGS: Heterogeneous thyroid gland with low attenuated lesion right thyroid lobe measuring 6 millimeters for which followup thyroid ultrasound is suggested. Heart and pericardium: Normal. Thoracic aorta: Normal. Pulmonary vasculature: No evidence of PE seen.. Varicoid encasement of the left infrahilar bronchovascular pedicle appearing to reflect parasitization of possible pulmonary artery supply to the process encompassing the left lower lobe. Vascular supply does not appear to be arising from the aorta. Lymph nodes: Moderate mediastinal adenopathy measuring in the 1.8 x 1.2 millimeter range right pretracheal with matted adenopathy in the subcarinal areas measuring 1.5 1.3 and 1.6 x 1.5 centimeters. Left infrahilar adenopathy measuring 1.6 x 1.9 centimeters left suprahilar adenopathy 1.5 x 1.3 centimeters small lymph node in the suprahilar area measuring 1.5 x 0.6 centimeters right perihilar adenopathy measuring 2.2 x 1.2 centimeters. Lungs/pleural space: Diffuse pulmonary emphysema with bronchiectasis and bronchial thickening. Calcified granuloma in the right posterior lower lung zone. Scarring in the lung apices. Noncalcified pulmonary nodule left upper lateral apex 4 millimeters. Bronchiolectasis lingula. There is an extensive cystic process involving the left lower lobe with large thick-walled cysts with air-fluid levels and with innumerable cavitary or cystic areas throughout. There is prominent collateral vessels seen extending at the left infrahilar bronchovascular pedicle..Small nodular changes in the 2-5 millimeter range superior segment left lower lobe cephalad to the regional multi-cystic process.. The multi cystic replacement of the left lower lung zone with numerous variable-sized cavitary areas, cyst or pneumatoceles could be related to infectious inflammatory or congenital process. Infectious etiologies include but are not limited to bronchial pneumonia with aggressive lung breakdown related to staph aureus, gram-negative bacilli or tuberculosis. Necrotizing pneumonia can be related to pseudomonas in cases with cavitation and confluent areas of necrosis. Numerous other bacteria and entities can result in the appearance including cavitary cryptococcus, aspergillosis. No wall invasion to support invasive bacteria. Malignancy is not favored as primary consideration however underlying malignancy is not excludable. Sarcoidosis can be associated with traction bronchiectasis and signet ring cell appearance but felt less likely given the containment to the left lower lobe predominately. Other noninfectious inflammatory processes include New's granulomatosis. Congenital entities include sequestration and cystic adenomatoid malformation. Underlying secondary malignancy is not excludable. Followup and further workup is advised. Musculoskeletal structures: Upper abdominal structures: No significant abnormality. IMPRESSION: Indeterminate regional multi-cystic appearance with cavitary areas or pneumatoceles and probable areas of cystic bronchiectasis left lower lobe of indeterminate etiology. See differential consideration discussion above. Consider a chronic process with superimposed acute infectious disease likely. Cystic and cavitary areas can be related to infectious and noninfectious , neoplasia, congenital such as cystic adenomatoid malformation, posttraumatic and post infectious etiologies on the short list. Mild pleural thickening and with prominent varicoid vascular supply emanating from the left infrahilar area to the left lower lobe pathology. The vascular appearance suggest this process has been long-standing chronicity. The air-fluid levels inflammatory thickening along the henriquez of the cystic bronchiectasis pleural thickening suggests a superimposed acute infectious or inflammatory process at a minimum. Mediastinal and hilar adenopathy. Pulmonary nodules as above Malignancy is not excludable. Pulmonary specially consultation is advised. Followup and further workup is advised.
--- NOTE | 2017-01-03 21:08 | Consultation ---
CONSULTING PHYSICIAN: Minda Morales MD REASON FOR CONSULTATION: Abnormal CT scan, interstitial lung disease, honeycombing. CHIEF COMPLAINT AND HISTORY OF PRESENT ILLNESS: The patient is a 66-year-old male, speaks German; past medical history, the family had denied any, who came into the Emergency Room yesterday due to about 3-4 days of increasing fever and chills, cough productive of yellowish to greenish sputum. He denied any recent travels, felt generally fatigued. He complained of some pleuritic-type chest pain. [id number] medication was not improving it. Evaluation was done and was consistent with pneumonia. He was admitted for treatment. A CT scan today, however, showed that he had a significant abnormality in the left lower lobe as mentioned above, hence, the consult. When I stopped by to see him, he was sitting on the side of bed, about to start eating. Still complaining of the pleuritic-type chest pain. He denied any hemoptysis whatsoever during this symptom. As best as I could, translating through the son and his daughter over the phone, the patient does not have a history of chronic recurrent pneumonias. He did do some smoking when he was younger and it seems like as much as a 10+ pack year tobacco smoking history. Really that is about as much history as he could give me. They deny significant weight loss or gain. That is as much of history that I have. PAST MEDICAL HISTORY: Denied. PAST SURGICAL HISTORY: Denied. MEDICATIONS: He was on at the time I stopped by to see him, according to the medication administration record included the following: He was on Tylenol 650 mg p.o. q.4-6 hours p.r.n. mild pain, albuterol treatments 2.5 mg inhaled q.4 hours p.r.n., azithromycin 500 mg IV daily, Rocephin 1 g IV daily, Lovenox 40 mg subcutaneous daily, and sodium chloride had been going at 75 mL per hour. ALLERGIES: No known drug allergies. DIET: Well-built gentleman. Again, denies significant weight loss or gain in the preceding few weeks to months. FAMILY AND SOCIAL HISTORY: Apparently lives in the community with the family. Remote 10+ pack year tobacco smoking history. Denies current alcohol, tobacco, or illicit drug use or abuse. REVIEW OF SYSTEMS: Difficult to obtain really secondary due to a little bit language differences; however, a good review of systems had been done with the translations line earlier. He had denied any hemoptysis. He denied any new onset focal weakness. Family denied any loss of consciousness, no gross hematochezia or melena. No gross hematuria. No hematemesis. No palpitations. Complete review of systems is obtained. Pertinent positives and/or negatives as in body of history above, otherwise they are noncontributory. PHYSICAL EXAMINATION: VITAL SIGNS: At presentation in the Emergency Room, he was initially afebrile at 97.4, but soon developed a fever of 103.1 degrees Fahrenheit with a pulse of 102, respiratory rate of 18, blood pressure 161/86 and oxygen saturation was 97%. At the time I saw him, he was on 3 liters nasal cannula; however, inspired oxygen concentration at the initial evaluation is unclear. HEENT, EYES, EARS, NOSE AND THROAT: Pupils are equal, round, about 3-4 mm, reactive to light. Extraocular muscle movements are intact. Oropharynx is a Mallampati #2. Oropharynx, no significant posterior oropharyngeal erythema. NECK: Grossly, there were no palpable lymph nodes in the supraclavicular or submandibular lymph node chains. LUNGS: Auscultation of both lung good revealed really bibasilar, but more predominant on the left inspiratory rales. No wheezing. HEART: Heart sounds 1 and 2 are heard. They were regular in rate and rhythm at time of my evaluation. ABDOMEN: Soft, full, bowel sounds are positive, nontender. EXTREMITIES: Without overt digital clubbing, cyanosis, or pedal edema. NEUROLOGIC: The exam was grossly nonfocal. LABORATORY DATA: From my review are as follows: White cell count 8300, hemoglobin 11.8, hematocrit 37.2 and platelet count 170. Venous blood gas showed a pH of 7.40 at presentation. Serum sodium was 128 at presentation with potassium of 3.2, chloride of 90, bicarbonate 25, BUN 13, creatinine 1.3 and glucose of 185. Lactic acid level was 2.5 at presentation. Magnesium was within normal limits. Liver function test: AST is up at 49; otherwise, exceptionally within normal limits. Cardiac enzymes are all negative. Urinalysis was negative for nitrites and leukocyte esterase and really unremarkable. Microbiology studies, no growth to date. He did have influenza A and B screens as well as rapid Strep. They were all negative. Again, I have reviewed the CT scan of the chest. I also reviewed the radiologist's interpretation and I do agree. He has some shotty mediastinal adenopathy including some mild subcarinal adenopathy, a few of them above 1 cm. Main findings are evidence of paraseptal emphysema minimally involving the upper lobe, but the left lower lobe and the left lung in particular show areas of saccular and cystic bronchiectasis as well as some area of traction bronchiectasis. There are fluid-filled cavities consistent with possible superinfection. No gross pneumothorax. No gross bony fractures that I can see. ASSESSMENT AND PLAN: We have an elderly gentleman certainly in my estimation with an acute superinfection of chronic underlying lung disease. He certainly does have evidence of interstitial lung disease. I do feel that the more likely etiology in particular for the left lung changes is a prior infection. He does not give me that history at this time. The differential diagnosis certainly can include connective tissue related lung disorders, sarcoidosis related cystic changes or congenital changes, but again I believe that this probably has been some prior symptomatology, he just might not be putting the two of them together. For now, I think we should treat this as a superinfection. It is unclear if Rocephin and Zithromax will be appropriate treatments, but he seems to be showing improvement from what he tells me clinically, so I will not change ____. At this time, I will continue Rocephin and Zithromax. I will, however, send sputum for Gram stain, cultures and sensitivities. I do not see the utility of testing for acid-fast bacillus. If they are positive, more likely it is going to be atypical microbacterial infection. I will get an MARGI level and an angiotensin-converting enzyme level as a screen for connective tissue disorders as well as for angiotensin-converting enzyme. Hopefully, he improves clinically. I doubt we are dealing with New's granulomatosis and we will hold on serologic testing for that. We will go with MARGI level first. If he improves clinically, which I do expect him to, he will be seen in followup in the office for continued outpatient workup. For now, I will also put him on GI and DVT prophylaxis. Flu and pneumonia vaccination will be per protocol. Thank you very much for the consult, Dr. Morales. We will follow along and make further recommendations as picture progresses/becomes clearer. JOB# [id number] ORAL/NALINI
[2017-01-03] MEDS: ZITHROMAX 500 MG in NACL 0.9% 250ML 250 ML IV SCH (22:48)
[2017-01-04] MEDS: TYLENOL PO PRN (01:10)
[2017-01-04 05:50] LABS: Basophils % (Auto) 0.3 % (0.0-1.8); Eosinophils % (Auto) 0.1 % (0.0-4.3); Hematocrit 35.1 % (35.5-45.6); Mean Corpuscular HGB Conc 31 % (32-34); Mean Corpuscular Volume 71 fl (84-94); Platelet Count 139 K/mm3 (140-440); Red Blood Count 4.94 M/mm3 (3.65-5.03); Red Cell Distribution Width 14.9 % (13.2-15.2); White Blood Count 3.6 K/mm3 (4.5-11.0)
[2017-01-04 05:58] LABS: Mean Corpuscular Hemoglobin 22 pg (28-32)
[2017-01-04 06:09] LABS: Anion Gap 18 mmol/L; Blood Urea Nitrogen 11 mg/dL (9-20); Calcium 7.7 mg/dL (8.4-10.2); Carbon Dioxide 23 mmol/L (22-30); Chloride 99.9 mmol/L (98-107); Glucose 179 mg/dL (75-100); Magnesium 1.8 mg/dL (1.7-2.3); Phosphorous 2.9 mg/dL (2.5-4.5); Potassium 3.4 mmol/L (3.6-5.0); Sodium 137 mmol/L (137-145)
[2017-01-04] MEDS: NACL 0.9% 1000 ML 1,000 ML IV SCH (08:51)
[2017-01-04] MEDS: ROCEPHIN/NS 1 GM/50 ML 1 GM/50 ML BAG IV SCH ×2 (09:36→22:07)
[2017-01-04] MEDS: LOVENOX SUB-Q SCH (09:37)
[2017-01-04] MEDS: TUMS PO SCH ×2 (09:37→23:23)
[2017-01-04] MEDS ORDERED: K-DUR PO ONE ×2 (10:03→12:10)
--- NOTE | 2017-01-04 10:35 | Progress Note ---
Assessment and Plan Assessment and plan: --Interstitial lung disease ,on CT chest Continue current management Pulmonary following --Sepsis secondary to bilateral pneumonia/elevated lactic acid/fever Follow cultures, continue current antibiotics ceftriaxone and azithromycin --Hyponatremia, hypokalemia Placed per protocol and monitor levels --DVT prophylaxis with Lovenox --Out of bed to chair and ambulate as tolerated --Full CODE STATUS Closely monitor the patient had just the management as needed Possible discharge in 1-2 days if stable History Interval history: Patient seen and evaluated medical records reviewed Patient feels slightly better, no new complaints Alert awake oriented 3 not in acute distress Hospitalist Physical - Constitutional Vitals: Temp Pulse Resp BP Pulse Ox 98.2 F 76 18 114/67 99 01/04/17 08:00 01/04/17 08:00 01/04/17 08:00 01/04/17 08:00 01/04/17 08:00 General appearance: Present: no acute distress, well-nourished - EENT Eyes: Present: PERRL, EOM intact - Neck Neck: Present: supple, normal ROM - Respiratory Respiratory effort: normal Respiratory: bilateral: diminished, rhonchi - Cardiovascular Rhythm: regular Heart Sounds: Present: S1 & S2 - Extremities Extremities: no ischemia, pulses intact, pulses symmetrical Peripheral Pulses: within normal limits - Abdominal General gastrointestinal: soft, non-tender, non-distended, normal bowel sounds - Integumentary Integumentary: Present: clear, warm - Psychiatric Psychiatric: appropriate mood/affect, cooperative - Neurologic Neurologic: CNII-XII intact, moves all extremities Results - Labs CBC & Chem 7: 01/04/17 04:21 01/04/17 04:21 Labs: Laboratory Last Values WBC 3.6 K/mm3 (4.5-11.0) L 01/04/17 04:21 RBC 4.94 M/mm3 (3.65-5.03) 01/04/17 04:21 Hgb 11.0 gm/dl (11.8-15.2) L 01/04/17 04:21 Hct 35.1 % (35.5-45.6) L 01/04/17 04:21 MCV 71 fl (84-94) L 01/04/17 04:21 MCH 22 pg (28-32) L 01/04/17 04:21 MCHC 31 % (32-34) L 01/04/17 04:21 RDW 14.9 % (13.2-15.2) 01/04/17 04:21 Plt Count 139 K/mm3 (140-440) L 01/04/17 04:21 Lymph % (Auto) 25.7 % (13.4-35.0) 01/04/17 04:21 [place] % (Auto) 13.5 % (0.0-7.3) H 01/04/17 04:21 Eos % (Auto) 0.1 % (0.0-4.3) 01/04/17 04:21 Baso % (Auto) 0.3 % (0.0-1.8) 01/04/17 04:21 Lymph # 0.9 K/mm3 (1.2-5.4) L 01/04/17 04:21 [place] # 0.5 K/mm3 (0.0-0.8) 01/04/17 04:21 Eos # 0.0 K/mm3 (0.0-0.4) 01/04/17 04:21 Baso # 0.0 K/mm3 (0.0-0.1) 01/04/17 04:21 Seg Neutrophils % 60.4 % (40.0-70.0) 01/04/17 04:21 Seg Neutrophils # 2.2 K/mm3 (1.8-7.7) 01/04/17 04:21 VBG pH 7.401 (7.320-7.420) 01/01/17 00:47 Sodium 137 mmol/L (137-145) 01/04/17 04:21 Potassium 3.4 mmol/L (3.6-5.0) L 01/04/17 04:21 Chloride 99.9 mmol/L (98-107) 01/04/17 04:21 Carbon Dioxide 23 mmol/L (22-30) 01/04/17 04:21 Anion Gap 18 mmol/L 01/04/17 04:21 BUN 11 mg/dL (9-20) 01/04/17 04:21 Creatinine 1.0 mg/dL (0.8-1.5) 01/04/17 04:21 Estimated GFR > 60 ml/min 01/04/17 04:21 BUN/Creatinine Ratio 11.00 % 01/04/17 04:21 Glucose 179 mg/dL (75-100) H 01/04/17 04:21 POC Glucose 93 (70-105) 01/04/17 07:51 Lactic Acid 1.4 mmol/L (0.7-2.0) 01/02/17 04:41 Calcium 7.7 mg/dL (8.4-10.2) L 01/04/17 04:21 Phosphorus 2.9 mg/dL (2.5-4.5) 01/04/17 04:21 Magnesium 1.8 mg/dL (1.7-2.3) 01/04/17 04:21 Total Bilirubin 0.4 mg/dL (0.1-1.2) 01/01/17 00:47 Direct Bilirubin < 0.2 mg/dL (0-0.2) 01/01/17 00:47 Indirect Bilirubin 0.2 mg/dL 01/01/17 00:47 AST 49 units/L (5-40) H 01/01/17 00:47 ALT 39 units/L (7-56) 01/01/17 00:47 Alkaline Phosphatase 75 units/L (35-129) 01/01/17 00:47 Total Creatine Kinase 170 units/L (55-170) 01/01/17 00:47 CK-MB (CK-2) < 1.0 ng/mL (0.0-4.0) 01/01/17 00:47 Troponin T < 0.010 ng/mL (0.00-0.029) 01/01/17 00:47 NT-Pro-B Natriuret Pep 482.5 pg/mL (0-900) 01/01/17 00:47 Total Protein 8.2 g/dL (6.3-8.2) 01/01/17 00:47 Albumin 4.1 g/dL (3.9-5) 01/01/17 00:47 Albumin/Globulin Ratio 1.0 % 01/01/17 00:47 Urine Color Yellow (Yellow) 01/01/17 04:15 Urine Turbidity Clear (Clear) 01/01/17 04:15 Urine pH 5.0 (5.0-7.0) 01/01/17 04:15 Ur Specific [place] 1.023 (1.003-1.030) 01/01/17 04:15 Urine Protein 30 mg/dl mg/dL (Negative) 01/01/17 04:15 Urine Glucose (UA) 150 mg/dL (Negative) 01/01/17 04:15 Urine Ketones Tr mg/dL (Negative) 01/01/17 04:15 Urine Blood Neg (Negative) 01/01/17 04:15 Urine Nitrite Neg (Negative) 01/01/17 04:15 Ur Reducing Substances Not Reportable 01/01/17 04:15 Urine Bilirubin Neg (Negative) 01/01/17 04:15 Urine Ictotest Not Reportable 01/01/17 04:15 Urine Urobilinogen < 2.0 mg/dL (<2.0) 01/01/17 04:15 Ur Leukocyte Esterase Neg (Negative) 01/01/17 04:15 Urine WBC (Auto) 2.0 /HPF (0.0-6.0) 01/01/17 04:15 Urine RBC (Auto) 1.0 /HPF (0.0-6.0) 01/01/17 04:15 U Epithel Cells (Auto) < 1.0 /HPF (0-13.0) 01/01/17 04:15 Urine Mucus Few /HPF 01/01/17 04:15
--- NOTE | 2017-01-04 13:42 | Progress Note ---
Assessment and Plan - Patient Problems (1) Bronchiectasis with (acute) exacerbation Current Visit: Yes Status: Acute Plan to address problem: - continue empiric antibiotics but follow sputum cultures - continue bronchodilators and pulmonary toilet - hold on systemic steroids - follow MARGI & ROSEANN levels - supplemental oxygen as needed to keep sats >/=92% (2) Pneumonia Current Visit: Yes Status: Acute Qualifiers: Pneumonia type: P Aspiration pneumonia type: A Laterality: L Lung location: L Plan to address problem: - as above Subjective Date of service: 01/04/17 Principal diagnosis: Pneumonia; Acute Bronchiectasis exacerbation Interval history: Seen and examined at bedside; 24 hour events reviewed; nursing and respiratory care staff consulted; no adverse overnight events reported to me; resting in bed ; feels better; denies acute chest pains or increased SOB; no hemoptysis; no F/C /N/V Objective Vital Signs - 12hr 01/04/17 08:00 Temperature 98.2 F Pulse Rate [ 76 From Monitor] Respiratory 18 Rate Blood Pressure 114/67 [Left Arm] O2 Sat by Pulse 99 Oximetry Constitutional: no acute distress, alert Eyes: non-icteric ENT: oropharynx moist Neck: supple, no lymphadenopathy Effort: mildly labored Ascultation: Left: rales (base), Bilateral: diminished breath sounds Cardiovascular: regular rate and rhythm Gastrointestinal: normoactive bowel sounds, soft, non-tender, non-distended Integumentary: normal Extremities: no cyanosis, no edema, pink and warm, pulses normal, no ischemia or petechiae Neurologic: normal mental status, non-focal exam, pupils equal and round, motor strength normal and Psychiatric: mood appropriate, affect normal CBC and BMP: 01/09/17 05:05 01/09/17 05:05 Abnormal lab findings: Abnormal Labs 01/01/17 01/02/17 01/02/17 15:21 04:41 04:41 WBC RBC 5.25 H Hgb Hct MCV 72 L MCH 23 L MCHC 31 L RDW 15.3 H Plt Count [place] % (Auto) Lymph # 0.9 L Seg Neutrophils % 78.0 H Sodium Potassium Glucose 148 H POC Glucose 128 H Calcium 7.6 L 01/03/17 01/04/17 01/04/17 04:34 04:21 04:21 WBC 3.6 L RBC Hgb 11.0 L Hct 35.1 L MCV 71 L MCH 22 L MCHC 31 L RDW Plt Count 139 L [place] % (Auto) 13.5 H Lymph # 0.9 L Seg Neutrophils % Sodium 135 L Potassium 3.4 L Glucose 104 H 179 H POC Glucose Calcium 7.4 L 7.7 L Chest x-ray: image reviewed CT scan - chest: image reviewed
[2017-01-04] MEDS: ZITHROMAX 500 MG in NACL 0.9% 250ML 250 ML IV SCH (22:07)
[2017-01-05 05:45] LABS: Basophils % (Auto) 0.4 % (0.0-1.8); Eosinophils % (Auto) 0.6 % (0.0-4.3); Hematocrit 35.8 % (35.5-45.6); Hemoglobin 11.4 gm/dl (11.8-15.2); Mean Corpuscular HGB Conc 32 % (32-34); Mean Corpuscular Volume 71 fl (84-94); Platelet Count 146 K/mm3 (140-440); Red Blood Count 5.05 M/mm3 (3.65-5.03); Red Cell Distribution Width 14.8 % (13.2-15.2); White Blood Count 3.8 K/mm3 (4.5-11.0)
[2017-01-05 06:05] LABS: Mean Corpuscular Hemoglobin 23 pg (28-32)
[2017-01-05 06:07] LABS: BUN/Creatinine Ratio 12.22; Blood Urea Nitrogen 11 mg/dL (9-20); Carbon Dioxide 23 mmol/L (22-30); Glucose 164 mg/dL (75-100)
[2017-01-05 06:08] LABS: Anion Gap 19 mmol/L; Calcium 8.3 mg/dL (8.4-10.2); Chloride 101.8 mmol/L (98-107); Sodium 139 mmol/L (137-145)
[2017-01-05 06:11] LABS: Potassium 4.3 mmol/L (3.6-5.0)
--- NOTE | 2017-01-05 07:56 | Progress Note ---
Assessment and Plan Assessment and plan: --Interstitial lung disease ,on CT chest Continue current management Pulmonary following, workup is in progress --Sepsis secondary to bilateral pneumonia/elevated lactic acid/fever Follow cultures, continue current antibiotics ceftriaxone and azithromycin Repeat sputum culture, blood cultures are negative to date --Hyponatremia, hypokalemia Corrected closely monitor --DVT prophylaxis with Lovenox --Out of bed to chair and ambulate as tolerated --Full CODE STATUS Patient's condition treatment plan discussed in detail with the patient, at the bedside Consults and recommendations noted and appreciated History Interval history: Patient seen and evaluated medical records reviewed Patient complains of shortness of breath and productive cough Alert awake oriented 3 not in acute distress Hospitalist Physical - Constitutional Vitals: Temp Pulse Resp BP Pulse Ox 99.1 F 72 18 135/78 97 01/04/17 19:39 01/04/17 19:39 01/04/17 22:00 01/04/17 19:39 01/04/17 19:39 General appearance: Present: no acute distress, well-nourished - EENT Eyes: Present: PERRL, EOM intact - Neck Neck: Present: supple, normal ROM - Respiratory Respiratory effort: normal Respiratory: bilateral: diminished, rhonchi - Cardiovascular Rhythm: regular Heart Sounds: Present: S1 & S2 - Extremities Extremities: no ischemia, pulses intact, pulses symmetrical Peripheral Pulses: within normal limits - Abdominal General gastrointestinal: soft, non-tender, non-distended, normal bowel sounds - Integumentary Integumentary: Present: clear, warm - Psychiatric Psychiatric: appropriate mood/affect, cooperative - Neurologic Neurologic: CNII-XII intact, moves all extremities Results - Labs CBC & Chem 7: 01/05/17 04:22 01/05/17 04:22 Labs: Laboratory Last Values WBC 3.8 K/mm3 (4.5-11.0) L 01/05/17 04:22 RBC 5.05 M/mm3 (3.65-5.03) H 01/05/17 04:22 Hgb 11.4 gm/dl (11.8-15.2) L 01/05/17 04:22 Hct 35.8 % (35.5-45.6) 01/05/17 04:22 MCV 71 fl (84-94) L 01/05/17 04:22 MCH 23 pg (28-32) L 01/05/17 04:22 MCHC 32 % (32-34) 01/05/17 04:22 RDW 14.8 % (13.2-15.2) 01/05/17 04:22 Plt Count 146 K/mm3 (140-440) 01/05/17 04:22 Lymph % (Auto) 39.3 % (13.4-35.0) H 01/05/17 04:22 [place] % (Auto) 14.6 % (0.0-7.3) H 01/05/17 04:22 Eos % (Auto) 0.6 % (0.0-4.3) 01/05/17 04:22 Baso % (Auto) 0.4 % (0.0-1.8) 01/05/17 04:22 Lymph # 1.5 K/mm3 (1.2-5.4) 01/05/17 04:22 [place] # 0.6 K/mm3 (0.0-0.8) 01/05/17 04:22 Eos # 0.0 K/mm3 (0.0-0.4) 01/05/17 04:22 Baso # 0.0 K/mm3 (0.0-0.1) 01/05/17 04:22 Seg Neutrophils % 45.1 % (40.0-70.0) 01/05/17 04:22 Seg Neutrophils # 1.7 K/mm3 (1.8-7.7) L 01/05/17 04:22 VBG pH 7.401 (7.320-7.420) 01/01/17 00:47 Sodium 139 mmol/L (137-145) 01/05/17 04:22 Potassium 4.3 mmol/L (3.6-5.0) D 01/05/17 04:22 Chloride 101.8 mmol/L (98-107) 01/05/17 04:22 Carbon Dioxide 23 mmol/L (22-30) 01/05/17 04:22 Anion Gap 19 mmol/L 01/05/17 04:22 BUN 11 mg/dL (9-20) 01/05/17 04:22 Creatinine 0.9 mg/dL (0.8-1.5) 01/05/17 04:22 Estimated GFR > 60 ml/min 01/05/17 04:22 BUN/Creatinine Ratio 12.22 % 01/05/17 04:22 Glucose 164 mg/dL (75-100) H 01/05/17 04:22 POC Glucose 93 (70-105) 01/04/17 07:51 Lactic Acid 1.4 mmol/L (0.7-2.0) 01/02/17 04:41 Calcium 8.3 mg/dL (8.4-10.2) L 01/05/17 04:22 Phosphorus 2.9 mg/dL (2.5-4.5) 01/04/17 04:21 Magnesium 1.8 mg/dL (1.7-2.3) 01/04/17 04:21 Total Bilirubin 0.4 mg/dL (0.1-1.2) 01/01/17 00:47 Direct Bilirubin < 0.2 mg/dL (0-0.2) 01/01/17 00:47 Indirect Bilirubin 0.2 mg/dL 01/01/17 00:47 AST 49 units/L (5-40) H 01/01/17 00:47 ALT 39 units/L (7-56) 01/01/17 00:47 Alkaline Phosphatase 75 units/L (35-129) 01/01/17 00:47 Total Creatine Kinase 170 units/L (55-170) 01/01/17 00:47 CK-MB (CK-2) < 1.0 ng/mL (0.0-4.0) 01/01/17 00:47 Troponin T < 0.010 ng/mL (0.00-0.029) 01/01/17 00:47 NT-Pro-B Natriuret Pep 482.5 pg/mL (0-900) 01/01/17 00:47 Total Protein 8.2 g/dL (6.3-8.2) 01/01/17 00:47 Albumin 4.1 g/dL (3.9-5) 01/01/17 00:47 Albumin/Globulin Ratio 1.0 % 01/01/17 00:47 Urine Color Yellow (Yellow) 01/01/17 04:15 Urine Turbidity Clear (Clear) 01/01/17 04:15 Urine pH 5.0 (5.0-7.0) 01/01/17 04:15 Ur Specific [place] 1.023 (1.003-1.030) 01/01/17 04:15 Urine Protein 30 mg/dl mg/dL (Negative) 01/01/17 04:15 Urine Glucose (UA) 150 mg/dL (Negative) 01/01/17 04:15 Urine Ketones Tr mg/dL (Negative) 01/01/17 04:15 Urine Blood Neg (Negative) 01/01/17 04:15 Urine Nitrite Neg (Negative) 01/01/17 04:15 Ur Reducing Substances Not Reportable 01/01/17 04:15 Urine Bilirubin Neg (Negative) 01/01/17 04:15 Urine Ictotest Not Reportable 01/01/17 04:15 Urine Urobilinogen < 2.0 mg/dL (<2.0) 01/01/17 04:15 Ur Leukocyte Esterase Neg (Negative) 01/01/17 04:15 Urine WBC (Auto) 2.0 /HPF (0.0-6.0) 01/01/17 04:15 Urine RBC (Auto) 1.0 /HPF (0.0-6.0) 01/01/17 04:15 U Epithel Cells (Auto) < 1.0 /HPF (0-13.0) 01/01/17 04:15 Urine Mucus Few /HPF 01/01/17 04:15
[2017-01-05] MEDS ORDERED: LASIX IV ONE (09:00)
[2017-01-05] MEDS: ROCEPHIN/NS 1 GM/50 ML 1 GM/50 ML BAG IV SCH ×2 (09:41→22:03)
[2017-01-05] MEDS: LOVENOX SUB-Q SCH (09:42)
[2017-01-05] MEDS: TUMS PO SCH ×2 (09:42→22:03)
[2017-01-05] MEDS: ZITHROMAX 500 MG in NACL 0.9% 250ML 250 ML IV SCH (22:03)
--- NOTE | 2017-01-06 08:20 | Progress Note ---
Assessment and Plan Assessment and plan: --Interstitial lung disease ,on CT chest Continue current management Pulmonary following, workup is in progress --Sepsis secondary to bilateral pneumonia continue ceftriaxone and azithromycin Repeat sputum culture, blood cultures are negative to date --Hyponatremia, hypokalemia Corrected closely monitor --DVT prophylaxis with Lovenox --Out of bed to chair and ambulate as tolerated --Full CODE STATUS Patient's condition treatment plan discussed in detail with the patient, at the bedside Consults and recommendations noted and appreciated Rest of the workup can be done as an outpatient if cleared by pulmonary His condition and treatment plan discussed in detail with the patient and family member at the bedside and the nurse History Interval history: Patient seen and evaluated medical records reviewed No new events per nursing staff Patient feels better, mild shortness of breath and cough Hospitalist Physical - Constitutional Vitals: Temp Pulse Resp BP Pulse Ox 98.6 F 69 18 106/70 96 01/05/17 21:34 01/05/17 21:34 01/05/17 22:00 01/05/17 21:34 01/05/17 10:00 General appearance: Present: no acute distress, well-nourished - EENT Eyes: Present: PERRL, EOM intact - Neck Neck: Present: supple, normal ROM - Respiratory Respiratory effort: normal Respiratory: bilateral: diminished, rhonchi - Cardiovascular Rhythm: regular Heart Sounds: Present: S1 & S2 - Extremities Extremities: no ischemia, pulses intact, pulses symmetrical Peripheral Pulses: within normal limits - Abdominal General gastrointestinal: soft, non-tender, non-distended, normal bowel sounds - Integumentary Integumentary: Present: clear, warm - Psychiatric Psychiatric: appropriate mood/affect, cooperative - Neurologic Neurologic: CNII-XII intact, moves all extremities Results - Labs CBC & Chem 7: 01/05/17 04:22 01/05/17 04:22 Labs: Laboratory Last Values WBC 3.8 K/mm3 (4.5-11.0) L 01/05/17 04:22 RBC 5.05 M/mm3 (3.65-5.03) H 01/05/17 04:22 Hgb 11.4 gm/dl (11.8-15.2) L 01/05/17 04:22 Hct 35.8 % (35.5-45.6) 01/05/17 04:22 MCV 71 fl (84-94) L 01/05/17 04:22 MCH 23 pg (28-32) L 01/05/17 04:22 MCHC 32 % (32-34) 01/05/17 04:22 RDW 14.8 % (13.2-15.2) 01/05/17 04:22 Plt Count 146 K/mm3 (140-440) 01/05/17 04:22 Lymph % (Auto) 39.3 % (13.4-35.0) H 01/05/17 04:22 [place] % (Auto) 14.6 % (0.0-7.3) H 01/05/17 04:22 Eos % (Auto) 0.6 % (0.0-4.3) 01/05/17 04:22 Baso % (Auto) 0.4 % (0.0-1.8) 01/05/17 04:22 Lymph # 1.5 K/mm3 (1.2-5.4) 01/05/17 04:22 [place] # 0.6 K/mm3 (0.0-0.8) 01/05/17 04:22 Eos # 0.0 K/mm3 (0.0-0.4) 01/05/17 04:22 Baso # 0.0 K/mm3 (0.0-0.1) 01/05/17 04:22 Seg Neutrophils % 45.1 % (40.0-70.0) 01/05/17 04:22 Seg Neutrophils # 1.7 K/mm3 (1.8-7.7) L 01/05/17 04:22 VBG pH 7.401 (7.320-7.420) 01/01/17 00:47 Sodium 139 mmol/L (137-145) 01/05/17 04:22 Potassium 4.3 mmol/L (3.6-5.0) D 01/05/17 04:22 Chloride 101.8 mmol/L (98-107) 01/05/17 04:22 Carbon Dioxide 23 mmol/L (22-30) 01/05/17 04:22 Anion Gap 19 mmol/L 01/05/17 04:22 BUN 11 mg/dL (9-20) 01/05/17 04:22 Creatinine 0.9 mg/dL (0.8-1.5) 01/05/17 04:22 Estimated GFR > 60 ml/min 01/05/17 04:22 BUN/Creatinine Ratio 12.22 % 01/05/17 04:22 Glucose 164 mg/dL (75-100) H 01/05/17 04:22 POC Glucose 93 (70-105) 01/04/17 07:51 Lactic Acid 1.4 mmol/L (0.7-2.0) 01/02/17 04:41 Calcium 8.3 mg/dL (8.4-10.2) L 01/05/17 04:22 Phosphorus 2.9 mg/dL (2.5-4.5) 01/04/17 04:21 Magnesium 1.8 mg/dL (1.7-2.3) 01/04/17 04:21 Total Bilirubin 0.4 mg/dL (0.1-1.2) 01/01/17 00:47 Direct Bilirubin < 0.2 mg/dL (0-0.2) 01/01/17 00:47 Indirect Bilirubin 0.2 mg/dL 01/01/17 00:47 AST 49 units/L (5-40) H 01/01/17 00:47 ALT 39 units/L (7-56) 01/01/17 00:47 Alkaline Phosphatase 75 units/L (35-129) 01/01/17 00:47 Total Creatine Kinase 170 units/L (55-170) 01/01/17 00:47 CK-MB (CK-2) < 1.0 ng/mL (0.0-4.0) 01/01/17 00:47 Troponin T < 0.010 ng/mL (0.00-0.029) 01/01/17 00:47 NT-Pro-B Natriuret Pep 482.5 pg/mL (0-900) 01/01/17 00:47 Total Protein 8.2 g/dL (6.3-8.2) 01/01/17 00:47 Albumin 4.1 g/dL (3.9-5) 01/01/17 00:47 Albumin/Globulin Ratio 1.0 % 01/01/17 00:47 Urine Color Yellow (Yellow) 01/01/17 04:15 Urine Turbidity Clear (Clear) 01/01/17 04:15 Urine pH 5.0 (5.0-7.0) 01/01/17 04:15 Ur Specific [place] 1.023 (1.003-1.030) 01/01/17 04:15 Urine Protein 30 mg/dl mg/dL (Negative) 01/01/17 04:15 Urine Glucose (UA) 150 mg/dL (Negative) 01/01/17 04:15 Urine Ketones Tr mg/dL (Negative) 01/01/17 04:15 Urine Blood Neg (Negative) 01/01/17 04:15 Urine Nitrite Neg (Negative) 01/01/17 04:15 Ur Reducing Substances Not Reportable 01/01/17 04:15 Urine Bilirubin Neg (Negative) 01/01/17 04:15 Urine Ictotest Not Reportable 01/01/17 04:15 Urine Urobilinogen < 2.0 mg/dL (<2.0) 01/01/17 04:15 Ur Leukocyte Esterase Neg (Negative) 01/01/17 04:15 Urine WBC (Auto) 2.0 /HPF (0.0-6.0) 01/01/17 04:15 Urine RBC (Auto) 1.0 /HPF (0.0-6.0) 01/01/17 04:15 U Epithel Cells (Auto) < 1.0 /HPF (0-13.0) 01/01/17 04:15 Urine Mucus Few /HPF 01/01/17 04:15 Urine Legionella Ag Not detected (Not Detected) 01/01/17 04:26
[2017-01-06] MEDS: ROCEPHIN/NS 1 GM/50 ML 1 GM/50 ML BAG IV SCH ×2 (10:08→22:52)
[2017-01-06] MEDS: LOVENOX SUB-Q SCH (10:08)
[2017-01-06] MEDS: TUMS PO SCH ×2 (10:09→22:51)
[2017-01-06] MEDS ORDERED: ROBITUSSIN DM PO PRN (10:30)
--- NOTE | 2017-01-06 18:58 | Progress Note ---
Assessment and Plan Patient alert,awake and resting on room air. Still complaining cough.No acute respiratory distress. O2 satuaration 98% on room air.CT of the chest appears cystic bronchiectasis left lower lobe. Patient denies any history of treating for TB.Patient denies smoking, alcohol or drug abuse. 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 . 8 children. Denies any allergies to the medications. - Patient Problems (1) Bronchiectasis with (acute) exacerbation Current Visit: Yes Status: Acute Plan to address problem: Continue present antibiotics Continue aerosolized bronchodilators. ABGs on room air. PFTs as outpatient PPD and Edilma skin test. Sputum for AFB x 3 Respiratory isolation. Subjective Date of service: 01/06/17 Principal diagnosis: Pneumonia; Acute Bronchiectasis exacerbation Interval history: Patient alert,awake and resting on room air. Still complaining cough.No acute respiratory distress. O2 satuaration 98% on room air.CT of the chest appears cystic bronchiectasis left lower lobe. Patient denies any history of treating for TB.Patient denies smoking, alcohol or drug abuse. 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 . 8 children. Denies any allergies to the medications. Objective Vital Signs - 12hr 01/06/17 08:43 Respiratory 18 Rate O2 Sat by Pulse 98 Oximetry Constitutional: no acute distress, alert Eyes: non-icteric ENT: oropharynx moist Neck: supple, no lymphadenopathy Ascultation: Left: rhonchi Cardiovascular: regular rate and rhythm Gastrointestinal: normoactive bowel sounds, soft, non-tender Integumentary: normal Extremities: no cyanosis, no edema Neurologic: normal mental status, non-focal exam, pupils equal and round, CN II- XII normal Psychiatric: mood appropriate CBC and BMP: 01/05/17 04:22 01/05/17 04:22 Abnormal lab findings: Abnormal Labs 01/01/17 01/02/17 01/02/17 15:21 04:41 04:41 WBC RBC 5.25 H Hgb Hct MCV 72 L MCH 23 L MCHC 31 L RDW 15.3 H Plt Count Lymph % (Auto) [place] % (Auto) Lymph # 0.9 L Seg Neutrophils % 78.0 H Seg Neutrophils # Sodium Potassium Glucose 148 H POC Glucose 128 H Calcium 7.6 L 01/03/17 01/04/17 01/04/17 04:34 04:21 04:21 WBC 3.6 L RBC Hgb 11.0 L Hct 35.1 L MCV 71 L MCH 22 L MCHC 31 L RDW Plt Count 139 L Lymph % (Auto) [place] % (Auto) 13.5 H Lymph # 0.9 L Seg Neutrophils % Seg Neutrophils # Sodium 135 L Potassium 3.4 L Glucose 104 H 179 H POC Glucose Calcium 7.4 L 7.7 L 01/05/17 01/05/17 04:22 04:22 WBC 3.8 L RBC 5.05 H Hgb 11.4 L Hct MCV 71 L MCH 23 L MCHC RDW Plt Count Lymph % (Auto) 39.3 H [place] % (Auto) 14.6 H Lymph # Seg Neutrophils % Seg Neutrophils # 1.7 L Sodium Potassium Glucose 164 H POC Glucose Calcium 8.3 L Chest x-ray: report reviewed (Interstitial and honeycombing changes reported left lower lobe.), image reviewed
[2017-01-07] MEDS: ZITHROMAX 500 MG in NACL 0.9% 250ML 250 ML IV SCH ×2 (00:04→23:16)
--- NOTE | 2017-01-07 09:06 | Progress Note ---
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 continue ceftriaxone and azithromycin Repeat sputum culture, blood cultures are negative to date --Hyponatremia, hypokalemia Corrected closely monitor --DVT prophylaxis with Lovenox --Out of bed to chair and ambulate as tolerated --Full CODE STATUS Patient's condition treatment plan discussed in detail with the patient, at the bedside Consults and recommendations noted and appreciated Follow sputum analysis, if negative and patient is stable can be discharged home in 1-2 days History Interval history: Patient seen and evaluated medical records reviewed Patient is being transferred to respiratory isolation, pulmonary advised sputum for AFB 3 Of seen and evaluated patient in his room this morning No new events reported by nursing staff Patient feels better mild cough Alert awake oriented 3 not in acute distress vital signs stable Hospitalist Physical - Constitutional Vitals: Temp Pulse Resp BP Pulse Ox 97.5 F L 65 18 115/69 96 01/07/17 06:53 01/07/17 06:53 01/07/17 06:53 01/07/17 06:53 01/07/17 06:53 General appearance: Present: no acute distress, well-nourished - EENT Eyes: Present: PERRL, EOM intact - Neck Neck: Present: supple, normal ROM - Respiratory Respiratory effort: normal Respiratory: bilateral: diminished, rhonchi - Cardiovascular Rhythm: regular Heart Sounds: Present: S1 & S2 - Extremities Extremities: no ischemia, pulses intact, pulses symmetrical, No edema - Abdominal General gastrointestinal: soft, non-tender, non-distended, normal bowel sounds - Integumentary Integumentary: Present: clear, warm - Psychiatric Psychiatric: appropriate mood/affect, cooperative - Neurologic Neurologic: CNII-XII intact, focal deficits Results - Labs CBC & Chem 7: 01/09/17 05:05 01/09/17 05:05 Labs: Laboratory Last Values WBC 3.8 K/mm3 (4.5-11.0) L 01/05/17 04:22 RBC 5.05 M/mm3 (3.65-5.03) H 01/05/17 04:22 Hgb 11.4 gm/dl (11.8-15.2) L 01/05/17 04:22 Hct 35.8 % (35.5-45.6) 01/05/17 04:22 MCV 71 fl (84-94) L 01/05/17 04:22 MCH 23 pg (28-32) L 01/05/17 04:22 MCHC 32 % (32-34) 01/05/17 04:22 RDW 14.8 % (13.2-15.2) 01/05/17 04:22 Plt Count 146 K/mm3 (140-440) 01/05/17 04:22 Lymph % (Auto) 39.3 % (13.4-35.0) H 01/05/17 04:22 [place] % (Auto) 14.6 % (0.0-7.3) H 01/05/17 04:22 Eos % (Auto) 0.6 % (0.0-4.3) 01/05/17 04:22 Baso % (Auto) 0.4 % (0.0-1.8) 01/05/17 04:22 Lymph # 1.5 K/mm3 (1.2-5.4) 01/05/17 04:22 [place] # 0.6 K/mm3 (0.0-0.8) 01/05/17 04:22 Eos # 0.0 K/mm3 (0.0-0.4) 01/05/17 04:22 Baso # 0.0 K/mm3 (0.0-0.1) 01/05/17 04:22 Seg Neutrophils % 45.1 % (40.0-70.0) 01/05/17 04:22 Seg Neutrophils # 1.7 K/mm3 (1.8-7.7) L 01/05/17 04:22 VBG pH 7.401 (7.320-7.420) 01/01/17 00:47 Sodium 139 mmol/L (137-145) 01/05/17 04:22 Potassium 4.3 mmol/L (3.6-5.0) D 01/05/17 04:22 Chloride 101.8 mmol/L (98-107) 01/05/17 04:22 Carbon Dioxide 23 mmol/L (22-30) 01/05/17 04:22 Anion Gap 19 mmol/L 01/05/17 04:22 BUN 11 mg/dL (9-20) 01/05/17 04:22 Creatinine 0.9 mg/dL (0.8-1.5) 01/05/17 04:22 Estimated GFR > 60 ml/min 01/05/17 04:22 BUN/Creatinine Ratio 12.22 % 01/05/17 04:22 Glucose 164 mg/dL (75-100) H 01/05/17 04:22 POC Glucose 93 (70-105) 01/04/17 07:51 Lactic Acid 1.4 mmol/L (0.7-2.0) 01/02/17 04:41 Calcium 8.3 mg/dL (8.4-10.2) L 01/05/17 04:22 Phosphorus 2.9 mg/dL (2.5-4.5) 01/04/17 04:21 Magnesium 1.8 mg/dL (1.7-2.3) 01/04/17 04:21 Total Bilirubin 0.4 mg/dL (0.1-1.2) 01/01/17 00:47 Direct Bilirubin < 0.2 mg/dL (0-0.2) 01/01/17 00:47 Indirect Bilirubin 0.2 mg/dL 01/01/17 00:47 AST 49 units/L (5-40) H 01/01/17 00:47 ALT 39 units/L (7-56) 01/01/17 00:47 Alkaline Phosphatase 75 units/L (35-129) 01/01/17 00:47 Total Creatine Kinase 170 units/L (55-170) 01/01/17 00:47 CK-MB (CK-2) < 1.0 ng/mL (0.0-4.0) 01/01/17 00:47 Troponin T < 0.010 ng/mL (0.00-0.029) 01/01/17 00:47 NT-Pro-B Natriuret Pep 482.5 pg/mL (0-900) 01/01/17 00:47 Total Protein 8.2 g/dL (6.3-8.2) 01/01/17 00:47 Albumin 4.1 g/dL (3.9-5) 01/01/17 00:47 Albumin/Globulin Ratio 1.0 % 01/01/17 00:47 Urine Color Yellow (Yellow) 01/01/17 04:15 Urine Turbidity Clear (Clear) 01/01/17 04:15 Urine pH 5.0 (5.0-7.0) 01/01/17 04:15 Ur Specific [place] 1.023 (1.003-1.030) 01/01/17 04:15 Urine Protein 30 mg/dl mg/dL (Negative) 01/01/17 04:15 Urine Glucose (UA) 150 mg/dL (Negative) 01/01/17 04:15 Urine Ketones Tr mg/dL (Negative) 01/01/17 04:15 Urine Blood Neg (Negative) 01/01/17 04:15 Urine Nitrite Neg (Negative) 01/01/17 04:15 Ur Reducing Substances Not Reportable 01/01/17 04:15 Urine Bilirubin Neg (Negative) 01/01/17 04:15 Urine Ictotest Not Reportable 01/01/17 04:15 Urine Urobilinogen < 2.0 mg/dL (<2.0) 01/01/17 04:15 Ur Leukocyte Esterase Neg (Negative) 01/01/17 04:15 Urine WBC (Auto) 2.0 /HPF (0.0-6.0) 01/01/17 04:15 Urine RBC (Auto) 1.0 /HPF (0.0-6.0) 01/01/17 04:15 U Epithel Cells (Auto) < 1.0 /HPF (0-13.0) 01/01/17 04:15 Urine Mucus Few /HPF 01/01/17 04:15 MARGI Screen Negative (Negative) 01/03/17 19:00 Urine Legionella Ag Not detected (Not Detected) 01/01/17 04:26
[2017-01-07] MEDS: TUMS PO SCH ×2 (10:13→22:03)
[2017-01-07] MEDS: ROCEPHIN/NS 1 GM/50 ML 1 GM/50 ML BAG IV SCH ×2 (10:13→22:03)
[2017-01-07] MEDS: LOVENOX SUB-Q SCH (10:13)
[2017-01-07] MEDS ORDERED: APLISOL ID ONE (14:00)
--- NOTE | 2017-01-07 17:24 | Progress Note ---
Assessment and Plan Patient alert,awake and resting on room air. Still complaining cough.No acute respiratory distress.Patient afebrile. Collecting sputums for AFB. O2 satuaration 97% on room air. - Patient Problems (1) Bronchiectasis with (acute) exacerbation Current Visit: Yes Status: Acute Plan to address problem: Continue present antibiotics Continue aerosolized bronchodilators. ABGs on room air. PFTs as outpatient PPD and Edilma skin test. Sputum for AFB x 3 Respiratory isolation. Subjective Date of service: 01/07/17 Principal diagnosis: Pneumonia; Acute Bronchiectasis exacerbation Interval history: Patient alert,awake and resting on room air. Still complaining cough.No acute respiratory distress.Patient afebrile. Collect sputums for AFB. Patients O2 satuaration 97% on room air. Objective Vital Signs - 12hr 01/07/17 01/07/17 06:53 08:00 Temperature 97.5 F L 97.7 F Pulse Rate [ 65 66 From Monitor] Respiratory 18 16 Rate Blood Pressure 115/69 121/73 [Right Arm] O2 Sat by Pulse 96 97 Oximetry Constitutional: no acute distress, alert Eyes: non-icteric ENT: oropharynx moist Neck: supple, no lymphadenopathy Ascultation: Left: rhonchi Cardiovascular: regular rate and rhythm Gastrointestinal: normoactive bowel sounds, soft, non-tender Integumentary: normal Extremities: no cyanosis, no edema Neurologic: normal mental status, non-focal exam, pupils equal and round, CN II- XII normal Psychiatric: mood appropriate CBC and BMP: 01/05/17 04:22 01/05/17 04:22 Abnormal lab findings: Abnormal Labs 01/01/17 01/02/17 01/02/17 15:21 04:41 04:41 WBC RBC 5.25 H Hgb Hct MCV 72 L MCH 23 L MCHC 31 L RDW 15.3 H Plt Count Lymph % (Auto) [place] % (Auto) Lymph # 0.9 L Seg Neutrophils % 78.0 H Seg Neutrophils # Sodium Potassium Glucose 148 H POC Glucose 128 H Calcium 7.6 L 01/03/17 01/04/17 01/04/17 04:34 04:21 04:21 WBC 3.6 L RBC Hgb 11.0 L Hct 35.1 L MCV 71 L MCH 22 L MCHC 31 L RDW Plt Count 139 L Lymph % (Auto) [place] % (Auto) 13.5 H Lymph # 0.9 L Seg Neutrophils % Seg Neutrophils # Sodium 135 L Potassium 3.4 L Glucose 104 H 179 H POC Glucose Calcium 7.4 L 7.7 L 01/05/17 01/05/17 04:22 04:22 WBC 3.8 L RBC 5.05 H Hgb 11.4 L Hct MCV 71 L MCH 23 L MCHC RDW Plt Count Lymph % (Auto) 39.3 H [place] % (Auto) 14.6 H Lymph # Seg Neutrophils % Seg Neutrophils # 1.7 L Sodium Potassium Glucose 164 H POC Glucose Calcium 8.3 L
[2017-01-08 05:31] LABS: Anion Gap 20 mmol/L; Blood Urea Nitrogen 15 mg/dL (9-20); Calcium 8.4 mg/dL (8.4-10.2); Carbon Dioxide 23 mmol/L (22-30); Chloride 99.1 mmol/L (98-107); Glucose 134 mg/dL (75-100); Potassium 4.3 mmol/L (3.6-5.0); Sodium 138 mmol/L (137-145)
--- NOTE | 2017-01-08 10:01 | XRay Report ---
ROUTINE CHEST, TWO VIEWS: HISTORY: Followup bilateral infiltrates. Perhaps minimal improvement in the infiltration at the left lung base is demonstrated since 01/03/17. Cystic change or bronchiectasis in the left lower lobe is suspected. The remainder of the lungs are clear. No pleural effusion or pneumothorax. Normal heart and mediastinal structures. IMPRESSION: Minimal improvement in the infiltrates or cystic change at the left lung base.
--- NOTE | 2017-01-08 10:12 | Progress Note ---
Assessment and Plan - Patient Problems (1) Bronchiectasis with (acute) exacerbation Current Visit: Yes Status: Acute Plan to address problem: - continue empiric antibiotics but follow sputum cultures - continue bronchodilators and pulmonary toilet - hold on systemic steroids - MARGI negative (follow ROSEANN) - continue supplemental oxygen as needed to keep sats >/=92% - follow AFB smear reports - follow PPD read (2) Pneumonia Current Visit: Yes Status: Acute Qualifiers: Pneumonia type: P Aspiration pneumonia type: A Laterality: L Lung location: L Plan to address problem: - as above Subjective Date of service: 01/08/17 Principal diagnosis: Pneumonia; Acute Bronchiectasis exacerbation Interval history: Seen and examined at bedside; 24 hour events reviewed; nursing and respiratory care staff consulted; no adverse overnight events reported to me; in airborne isolation; denies acute chest pains; good appetite and feels better; no hemoptysis Objective Vital Signs - 12hr 01/08/17 01/08/17 04:00 07:28 Temperature 97.6 F 98.6 F Pulse Rate [ 60 63 From Monitor] Respiratory 18 Rate Blood Pressure 120/68 123/73 [Left Arm] O2 Sat by Pulse 18 L Oximetry Constitutional: no acute distress, alert Eyes: non-icteric ENT: oropharynx moist Neck: supple, no lymphadenopathy Effort: normal Ascultation: Left: rhonchi, Bilateral: diminished breath sounds Cardiovascular: regular rate and rhythm Gastrointestinal: normoactive bowel sounds, soft, non-tender, non-distended Integumentary: normal Extremities: no cyanosis, no edema, pink and warm, pulses normal, no ischemia or petechiae Neurologic: normal mental status, non-focal exam, pupils equal and round, CN II- XII normal Psychiatric: mood appropriate, affect normal CBC and BMP: 01/09/17 05:05 01/09/17 05:05 Abnormal lab findings: Abnormal Labs 01/01/17 01/02/17 01/02/17 15:21 04:41 04:41 WBC RBC 5.25 H Hgb Hct MCV 72 L MCH 23 L MCHC 31 L RDW 15.3 H Plt Count Lymph % (Auto) [place] % (Auto) Lymph # 0.9 L Seg Neutrophils % 78.0 H Seg Neutrophils # Sodium Potassium Glucose 148 H POC Glucose 128 H Calcium 7.6 L 01/03/17 01/04/1717 04:34 04:21 04:21 WBC 3.6 L RBC Hgb 11.0 L Hct 35.1 L MCV 71 L MCH 22 L MCHC 31 L RDW Plt Count 139 L Lymph % (Auto) [place] % (Auto) 13.5 H Lymph # 0.9 L Seg Neutrophils % Seg Neutrophils # Sodium 135 L Potassium 3.4 L Glucose 104 H 179 H POC Glucose Calcium 7.4 L 7.7 L 01/05/17 01/05/17 01/08/17 04:22 04:22 04:11 WBC 3.8 L RBC 5.05 H Hgb 11.4 L Hct MCV 71 L MCH 23 L MCHC RDW Plt Count Lymph % (Auto) 39.3 H [place] % (Auto) 14.6 H Lymph # Seg Neutrophils % Seg Neutrophils # 1.7 L Sodium Potassium Glucose 164 H 134 H POC Glucose Calcium 8.3 L
[2017-01-08] MEDS: TUMS PO SCH ×2 (11:37→23:51)
[2017-01-08] MEDS: LOVENOX SUB-Q SCH (11:37)
[2017-01-08] MEDS: ROCEPHIN/NS 1 GM/50 ML 1 GM/50 ML BAG IV SCH ×2 (11:37→23:50)
[2017-01-08 11:55] LABS: ISTAT Base Excess 1; ISTAT DEVICE 0; ISTAT HCO3 24.2; ISTAT PCO2 30.6 (35-45); ISTAT PH 7.505 (7.35-7.45); ISTAT PO2 94 (80-105); ISTAT SO2 98; ISTAT TCO2 25
--- NOTE | 2017-01-08 16:29 | Progress Note ---
Assessment and Plan Assessment and plan: --Bilateral pneumonia Continue current antibiotics DC tomorrow total 10 days, cough medicine Nebulizers as needed,Pulmonary following, workup is in progress --Possible left bronchiectasis sputum for AFB, respiratory isolation, and new current antibiotics Repeat x-ray very minimal change Pulmonary following --Sepsis secondary to pneumonia continue ceftriaxone and azithromycin Repeat sputum culture, blood cultures are negative to date --Hyponatremia, hypokalemia, resolved --DVT prophylaxis with Lovenox --Out of bed to chair and ambulate as tolerated --Full CODE STATUS Patient's condition treatment plan discussed in detail with the patient, at the bedside Consults and recommendations noted and appreciated Follow sputum analysis, if negative and patient is stable can be discharged home in 1-2 days History Interval history: Patient seen in his room medical records reviewed On respiratory isolation, is at the bedside Feels slightly better still has mild cough Repeat chest x-ray minimal improvement Awake oriented 3 not in acute distress Hospitalist Physical - Constitutional Vitals: Temp Pulse Resp BP Pulse Ox 98.6 F 63 18 123/73 97 01/08/17 07:28 01/08/17 07:28 01/08/17 10:00 01/08/17 07:28 01/08/17 10:00 General appearance: Present: no acute distress, well-nourished - EENT Eyes: Present: PERRL, EOM intact - Neck Neck: Present: supple, normal ROM - Respiratory Respiratory effort: normal Respiratory: bilateral: diminished, rhonchi - Cardiovascular Rhythm: regular Heart Sounds: Present: S1 & S2 - Extremities Extremities: no ischemia, pulses intact, pulses symmetrical Peripheral Pulses: within normal limits - Abdominal General gastrointestinal: soft, non-tender, non-distended, normal bowel sounds - Integumentary Integumentary: Present: clear, warm - Psychiatric Psychiatric: appropriate mood/affect, cooperative - Neurologic Neurologic: CNII-XII intact, moves all extremities Results - Labs CBC & Chem 7: 01/09/17 05:05 01/09/17 05:05 Labs: Laboratory Last Values WBC 3.8 K/mm3 (4.5-11.0) L 01/05/17 04:22 RBC 5.05 M/mm3 (3.65-5.03) H 01/05/17 04:22 Hgb 11.4 gm/dl (11.8-15.2) L 01/05/17 04:22 Hct 35.8 % (35.5-45.6) 01/05/17 04:22 MCV 71 fl (84-94) L 01/05/17 04:22 MCH 23 pg (28-32) L 01/05/17 04:22 MCHC 32 % (32-34) 01/05/17 04:22 RDW 14.8 % (13.2-15.2) 01/05/17 04:22 Plt Count 146 K/mm3 (140-440) 01/05/17 04:22 Lymph % (Auto) 39.3 % (13.4-35.0) H 01/05/17 04:22 [place] % (Auto) 14.6 % (0.0-7.3) H 01/05/17 04:22 Eos % (Auto) 0.6 % (0.0-4.3) 01/05/17 04:22 Baso % (Auto) 0.4 % (0.0-1.8) 01/05/17 04:22 Lymph # 1.5 K/mm3 (1.2-5.4) 01/05/17 04:22 [place] # 0.6 K/mm3 (0.0-0.8) 01/05/17 04:22 Eos # 0.0 K/mm3 (0.0-0.4) 01/05/17 04:22 Baso # 0.0 K/mm3 (0.0-0.1) 01/05/17 04:22 Seg Neutrophils % 45.1 % (40.0-70.0) 01/05/17 04:22 Seg Neutrophils # 1.7 K/mm3 (1.8-7.7) L 01/05/17 04:22 POC ABG pH 7.505 (7.35-7.45) H 01/08/17 11:48 POC ABG pCO2 30.6 (35-45) L 01/08/17 11:48 POC ABG pO2 94 (80-105) 01/08/17 11:48 POC ABG HCO3 24.2 01/08/17 11:48 POC ABG Total CO2 25 01/08/17 11:48 POC ABG O2 Sat 98 01/08/17 11:48 POC ABG Base Excess 1 01/08/17 11:48 VBG pH 7.401 (7.320-7.420) 01/01/17 00:47 FiO2 21 % 01/08/17 11:48 Sodium 138 mmol/L (137-145) 01/08/17 04:11 Potassium 4.3 mmol/L (3.6-5.0) 01/08/17 04:11 Chloride 99.1 mmol/L (98-107) 01/08/17 04:11 Carbon Dioxide 23 mmol/L (22-30) 01/08/17 04:11 Anion Gap 20 mmol/L 01/08/17 04:11 BUN 15 mg/dL (9-20) 01/08/17 04:11 Creatinine 1.0 mg/dL (0.8-1.5) 01/08/17 04:11 Estimated GFR > 60 ml/min 01/08/17 04:11 BUN/Creatinine Ratio 15.00 % 01/08/17 04:11 Glucose 134 mg/dL (75-100) H 01/08/17 04:11 POC Glucose 93 (70-105) 01/04/17 07:51 Lactic Acid 1.4 mmol/L (0.7-2.0) 01/02/17 04:41 Calcium 8.4 mg/dL (8.4-10.2) 01/08/17 04:11 Phosphorus 2.9 mg/dL (2.5-4.5) 01/04/17 04:21 Magnesium 1.8 mg/dL (1.7-2.3) 01/04/17 04:21 Total Bilirubin 0.4 mg/dL (0.1-1.2) 01/01/17 00:47 Direct Bilirubin < 0.2 mg/dL (0-0.2) 01/01/17 00:47 Indirect Bilirubin 0.2 mg/dL 01/01/17 00:47 AST 49 units/L (5-40) H 01/01/17 00:47 ALT 39 units/L (7-56) 01/01/17 00:47 Alkaline Phosphatase 75 units/L (35-129) 01/01/17 00:47 Total Creatine Kinase 170 units/L (55-170) 01/01/17 00:47 CK-MB (CK-2) < 1.0 ng/mL (0.0-4.0) 01/01/17 00:47 Troponin T < 0.010 ng/mL (0.00-0.029) 01/01/17 00:47 NT-Pro-B Natriuret Pep 482.5 pg/mL (0-900) 01/01/17 00:47 Total Protein 8.2 g/dL (6.3-8.2) 01/01/17 00:47 Albumin 4.1 g/dL (3.9-5) 01/01/17 00:47 Albumin/Globulin Ratio 1.0 % 01/01/17 00:47 Angiotensin Convert Enz See scanned report 01/03/17 19:00 Urine Color Yellow (Yellow) 01/01/17 04:15 Urine Turbidity Clear (Clear) 01/01/17 04:15 Urine pH 5.0 (5.0-7.0) 01/01/17 04:15 Ur Specific [place] 1.023 (1.003-1.030) 01/01/17 04:15 Urine Protein 30 mg/dl mg/dL (Negative) 01/01/17 04:15 Urine Glucose (UA) 150 mg/dL (Negative) 01/01/17 04:15 Urine Ketones Tr mg/dL (Negative) 01/01/17 04:15 Urine Blood Neg (Negative) 01/01/17 04:15 Urine Nitrite Neg (Negative) 01/01/17 04:15 Ur Reducing Substances Not Reportable 01/01/17 04:15 Urine Bilirubin Neg (Negative) 01/01/17 04:15 Urine Ictotest Not Reportable 01/01/17 04:15 Urine Urobilinogen < 2.0 mg/dL (<2.0) 01/01/17 04:15 Ur Leukocyte Esterase Neg (Negative) 01/01/17 04:15 Urine WBC (Auto) 2.0 /HPF (0.0-6.0) 01/01/17 04:15 Urine RBC (Auto) 1.0 /HPF (0.0-6.0) 01/01/17 04:15 U Epithel Cells (Auto) < 1.0 /HPF (0-13.0) 01/01/17 04:15 Urine Mucus Few /HPF 01/01/17 04:15 MARGI Screen Negative (Negative) 01/03/17 19:00 Urine Legionella Ag Not detected (Not Detected) 01/01/17 04:26
[2017-01-08] MEDS: ZITHROMAX 500 MG in NACL 0.9% 250ML 250 ML IV SCH (22:29)
[2017-01-09 05:37] LABS: Anion Gap 16 mmol/L; BUN/Creatinine Ratio 13.33; Blood Urea Nitrogen 16 mg/dL (9-20); Calcium 8.6 mg/dL (8.4-10.2); Carbon Dioxide 27 mmol/L (22-30); Chloride 102.4 mmol/L (98-107); Glucose 122 mg/dL (75-100); Hematocrit 37.3 % (35.5-45.6); Hemoglobin 11.7 gm/dl (11.8-15.2); Magnesium 2.2 mg/dL (1.7-2.3); Mean Corpuscular HGB Conc 32 % (32-34); Mean Corpuscular Volume 71 fl (84-94); Platelet Count 281 K/mm3 (140-440); Potassium 4.3 mmol/L (3.6-5.0); Red Blood Count 5.22 M/mm3 (3.65-5.03); Red Cell Distribution Width 14.8 % (13.2-15.2); Sodium 141 mmol/L (137-145); White Blood Count 5.8 K/mm3 (4.5-11.0)
[2017-01-09 05:47] LABS: Mean Corpuscular Hemoglobin 23 pg (28-32)
[2017-01-09 07:36] LABS: Anisocytosis 2+; Basophils % (Manual) 0 % (0.0-1.8); Blastocytes % (Manual) 0 %; Elliptocytes 1+; Eosinophils % (Manual) 0 % (0.0-4.3); Hypochromasia 1+
[2017-01-09 07:37] LABS: Diff Status Complete; Large Platelets Few
--- NOTE | 2017-01-09 11:13 | Progress Note ---
Subjective Date of service: 01/09/17 Principal diagnosis: Pneumonia; Acute Bronchiectasis exacerbation Interval history: Seen and examined at bedside; 24 hour events reviewed; nursing and respiratory care staff consulted; no adverse overnight events reported to me; Objective Vital Signs - 12hr 01/09/17 05:00 Temperature 97.8 F Pulse Rate [ 62 From Monitor] Respiratory 18 Rate Blood Pressure 118/70 [Left Arm] Constitutional: no acute distress, alert Eyes: non-icteric ENT: oropharynx moist Neck: supple, no lymphadenopathy Ascultation: Left: rhonchi Cardiovascular: regular rate and rhythm Gastrointestinal: normoactive bowel sounds, soft, non-tender Integumentary: normal Extremities: no cyanosis, no edema Neurologic: normal mental status, non-focal exam, pupils equal and round, CN II- XII normal Psychiatric: mood appropriate CBC and BMP: 01/09/17 05:05 01/09/17 05:05 ABG, PT/INR, D-dimer: ABG POC ABG pH 7.505 (7.35-7.45) H 01/08/17 11:48 POC ABG pCO2 30.6 (35-45) L 01/08/17 11:48 POC ABG pO2 94 (80-105) 01/08/17 11:48 POC ABG HCO3 24.2 01/08/17 11:48 POC ABG Total CO2 25 01/08/17 11:48 POC ABG O2 Sat 98 01/08/17 11:48 Abnormal lab findings: Abnormal Labs 01/01/17 01/02/17 01/02/17 15:21 04:41 04:41 WBC RBC 5.25 H Hgb Hct MCV 72 L MCH 23 L MCHC 31 L RDW 15.3 H Plt Count Lymph % (Auto) [place] % (Auto) Lymph # 0.9 L Seg Neutrophils % 78.0 H Seg Neuts % (Manual) Monocytes % (Manual) Seg Neutrophils # Lymphocytes # (Manual) POC ABG pH POC ABG pCO2 Sodium Potassium Glucose 148 H POC Glucose 128 H Calcium 7.6 L 01/03/17 01/04/17 01/04/17 04:34 04:21 04:21 WBC 3.6 L RBC Hgb 11.0 L Hct 35.1 L MCV 71 L MCH 22 L MCHC 31 L RDW Plt Count 139 L Lymph % (Auto) [place] % (Auto) 13.5 H Lymph # 0.9 L Seg Neutrophils % Seg Neuts % (Manual) Monocytes % (Manual) Seg Neutrophils # Lymphocytes # (Manual) POC ABG pH POC ABG pCO2 Sodium 135 L Potassium 3.4 L Glucose 104 H 179 H POC Glucose Calcium 7.4 L 7.7 L 01/05/17 01/05/17 01/08/17 04:22 04:22 04:11 WBC 3.8 L RBC 5.05 H Hgb 11.4 L Hct MCV 71 L MCH 23 L MCHC RDW Plt Count Lymph % (Auto) 39.3 H [place] % (Auto) 14.6 H Lymph # Seg Neutrophils % Seg Neuts % (Manual) Monocytes % (Manual) Seg Neutrophils # 1.7 L Lymphocytes # (Manual) POC ABG pH POC ABG pCO2 Sodium Potassium Glucose 164 H 134 H POC Glucose Calcium 8.3 L 01/08/17 01/09/17 01/09/17 11:48 05:05 05:05 WBC RBC 5.22 H Hgb 11.7 L Hct MCV 71 L MCH 23 L MCHC RDW Plt Count Lymph % (Auto) [place] % (Auto) Lymph # Seg Neutrophils % Seg Neuts % (Manual) 71.0 H Monocytes % (Manual) 10.0 H Seg Neutrophils # Lymphocytes # (Manual) 1.1 L POC ABG pH 7.505 H POC ABG pCO2 30.6 L Sodium Potassium Glucose 122 H POC Glucose Calcium
[2017-01-09] MEDS: ROCEPHIN/NS 1 GM/50 ML 1 GM/50 ML BAG IV SCH ×2 (11:33→23:43)
[2017-01-09] MEDS: TUMS PO SCH ×2 (11:33→23:39)
[2017-01-09] MEDS: LOVENOX SUB-Q SCH (11:33)
--- NOTE | 2017-01-09 17:43 | Progress Note ---
Assessment and Plan Assessment and plan: --left bronchiectasis Continue current antibiotics Rocephin and Zithromax, sputum for AFB, respiratory isolation, supportive care possible chest PT Follow-up chest x-ray no significant improvement Pulmonary following --Bilateral pneumonia, improved Continue current management --Hyponatremia, hypokalemia, resolved --DVT prophylaxis with Lovenox --Out of bed to chair and ambulate as tolerated --Full CODE STATUS Patient's condition treatment plan discussed in detail with the patient, at the bedside Consults and recommendations noted and appreciated Follow sputum AFB, if negative and patient is stable can be discharged home in 1 -2 days History Interval history: Patient seen and evaluated in his room this morning medical records reviewed No new events reported by the nursing staff Feels better mild cough Awaiting AFB cultures and smears Hospitalist Physical - Constitutional Vitals: Temp Pulse Resp BP Pulse Ox 97.1 F L 90 18 130/71 0 L 01/09/17 17:39 01/09/17 17:39 01/09/17 17:39 01/09/17 17:39 01/09/17 17:39 General appearance: Present: no acute distress, well-nourished - EENT Eyes: Present: PERRL, EOM intact - Neck Neck: Present: supple, normal ROM - Respiratory Respiratory effort: normal Respiratory: bilateral: diminished, rhonchi (left more than right) - Cardiovascular Rhythm: regular Heart Sounds: Present: S1 & S2 - Extremities Extremities: no ischemia, pulses intact, pulses symmetrical Peripheral Pulses: within normal limits - Abdominal General gastrointestinal: soft, non-tender, non-distended, normal bowel sounds - Integumentary Integumentary: Present: clear, warm - Psychiatric Psychiatric: appropriate mood/affect, cooperative - Neurologic Neurologic: CNII-XII intact, moves all extremities Results - Labs CBC & Chem 7: 01/09/17 05:05 01/09/17 05:05 Labs: Laboratory Last Values WBC 5.8 K/mm3 (4.5-11.0) 01/09/17 05:05 RBC 5.22 M/mm3 (3.65-5.03) H 01/09/17 05:05 Hgb 11.7 gm/dl (11.8-15.2) L 01/09/17 05:05 Hct 37.3 % (35.5-45.6) 01/09/17 05:05 MCV 71 fl (84-94) L 01/09/17 05:05 MCH 23 pg (28-32) L 01/09/17 05:05 MCHC 32 % (32-34) 01/09/17 05:05 RDW 14.8 % (13.2-15.2) 01/09/17 05:05 Plt Count 281 K/mm3 (140-440) 01/09/17 05:05 Lymph % (Auto) 39.3 % (13.4-35.0) H 01/05/17 04:22 [place] % (Auto) 14.6 % (0.0-7.3) H 01/05/17 04:22 Eos % (Auto) 0.6 % (0.0-4.3) 01/05/17 04:22 Baso % (Auto) 0.4 % (0.0-1.8) 01/05/17 04:22 Lymph # 1.5 K/mm3 (1.2-5.4) 01/05/17 04:22 [place] # 0.6 K/mm3 (0.0-0.8) 01/05/17 04:22 Eos # 0.0 K/mm3 (0.0-0.4) 01/05/17 04:22 Baso # 0.0 K/mm3 (0.0-0.1) 01/05/17 04:22 Add Manual Diff Complete 01/09/17 05:05 Total Counted 100 01/09/17 05:05 Seg Neutrophils % 45.1 % (40.0-70.0) 01/05/17 04:22 Seg Neuts % (Manual) 71.0 % (40.0-70.0) H 01/09/17 05:05 Band Neutrophils % 0 % 01/09/17 05:05 Lymphocytes % (Manual) 19.0 % (13.4-35.0) 01/09/17 05:05 Reactive Lymphs % (Man) 0 % 01/09/17 05:05 Monocytes % (Manual) 10.0 % (0.0-7.3) H 01/09/17 05:05 Eosinophils % (Manual) 0 % (0.0-4.3) 01/09/17 05:05 Basophils % (Manual) 0 % (0.0-1.8) 01/09/17 05:05 Metamyelocytes % 0 % 01/09/17 05:05 Myelocytes % 0 % 01/09/17 05:05 Promyelocytes % 0 % 01/09/17 05:05 Blast Cells % 0 % 01/09/17 05:05 Nucleated RBC % Not Reportable 01/09/17 05:05 Seg Neutrophils # 1.7 K/mm3 (1.8-7.7) L 01/05/17 04:22 Seg Neutrophils # Man 4.1 K/mm3 (1.8-7.7) 01/09/17 05:05 Band Neutrophils # 0.0 K/mm3 01/09/17 05:05 Lymphocytes # (Manual) 1.1 K/mm3 (1.2-5.4) L 01/09/17 05:05 Abs React Lymphs (Man) 0.0 K/mm3 01/09/17 05:05 Monocytes # (Manual) 0.6 K/mm3 (0.0-0.8) 01/09/17 05:05 Eosinophils # (Manual) 0.0 K/mm3 (0.0-0.4) 01/09/17 05:05 Basophils # (Manual) 0.0 K/mm3 (0.0-0.1) 01/09/17 05:05 Metamyelocytes # 0.0 K/mm3 01/09/17 05:05 Myelocytes # 0.0 K/mm3 01/09/17 05:05 Promyelocytes # 0.0 K/mm3 01/09/17 05:05 Blast Cells # 0.0 K/mm3 01/09/17 05:05 WBC Morphology Not Reportable 01/09/17 05:05 Hypersegmented Neuts Not Reportable 01/09/17 05:05 Hyposegmented Neuts Not Reportable 01/09/17 05:05 Hypogranular Neuts Not Reportable 01/09/17 05:05 Smudge Cells Not Reportable 01/09/17 05:05 Toxic Granulation Not Reportable 01/09/17 05:05 Toxic Vacuolation Not Reportable 01/09/17 05:05 Dohle Bodies Not Reportable 01/09/17 05:05 Pelger-Huet Anomaly Not Reportable 01/09/17 05:05 Juani Rods Not Reportable 01/09/17 05:05 Platelet Estimate Appears normal 01/09/17 05:05 Clumped Platelets Not Reportable 01/09/17 05:05 Plt Clumps, EDTA Not Reportable 01/09/17 05:05 Large Platelets Few 01/09/17 05:05 Giant Platelets Not Reportable 01/09/17 05:05 Platelet Satelliting Not Reportable 01/09/17 05:05 Plt Morphology Comment Not Reportable 01/09/17 05:05 RBC Morphology Not Reportable 01/09/17 05:05 Dimorphic RBCs Not Reportable 01/09/17 05:05 Polychromasia Not Reportable 01/09/17 05:05 Hypochromasia 1+ 01/09/17 05:05 Poikilocytosis Not Reportable 01/09/17 05:05 Anisocytosis 2+ 01/09/17 05:05 Microcytosis Not Reportable 01/09/17 05:05 Macrocytosis Not Reportable 01/09/17 05:05 Spherocytes Not Reportable 01/09/17 05:05 Pappenheimer Bodies Not Reportable 01/09/17 05:05 Sickle Cells Not Reportable 01/09/17 05:05 Target Cells Not Reportable 01/09/17 05:05 Tear Drop Cells Not Reportable 01/09/17 05:05 Ovalocytes Not Reportable 01/09/17 05:05 Helmet Cells Not Reportable 01/09/17 05:05 [place] Bodies Not Reportable 01/09/17 05:05 [place] Rings Not Reportable 01/09/17 05:05 [place] Cells Not Reportable 01/09/17 05:05 Bite Cells Not Reportable 01/09/17 05:05 Crenated Cell Not Reportable 01/09/17 05:05 Elliptocytes 1+ 01/09/17 05:05 Acanthocytes (Spur) Not Reportable 01/09/17 05:05 Rouleaux Not Reportable 01/09/17 05:05 Hemoglobin C Crystals Not Reportable 01/09/17 05:05 Schistocytes Not Reportable 01/09/17 05:05 Malaria parasites Not Reportable 01/09/17 05:05 [place] Bodies Not Reportable 01/09/17 05:05 Hem Pathologist Commnt No 01/09/17 05:05 POC ABG pH 7.505 (7.35-7.45) H 01/08/17 11:48 POC ABG pCO2 30.6 (35-45) L 01/08/17 11:48 POC ABG pO2 94 (80-105) 01/08/17 11:48 POC ABG HCO3 24.2 01/08/17 11:48 POC ABG Total CO2 25 01/08/17 11:48 POC ABG O2 Sat 98 01/08/17 11:48 POC ABG Base Excess 1 01/08/17 11:48 VBG pH 7.401 (7.320-7.420) 01/01/17 00:47 FiO2 21 % 01/08/17 11:48 Sodium 141 mmol/L (137-145) 01/09/17 05:05 Potassium 4.3 mmol/L (3.6-5.0) 01/09/17 05:05 Chloride 102.4 mmol/L (98-107) 01/09/17 05:05 Carbon Dioxide 27 mmol/L (22-30) 01/09/17 05:05 Anion Gap 16 mmol/L 01/09/17 05:05 BUN 16 mg/dL (9-20) 01/09/17 05:05 Creatinine 1.2 mg/dL (0.8-1.5) 01/09/17 05:05 Estimated GFR > 60 ml/min 01/09/17 05:05 BUN/Creatinine Ratio 13.33 % 01/09/17 05:05 Glucose 122 mg/dL (75-100) H 01/09/17 05:05 POC Glucose 93 (70-105) 01/04/17 07:51 Lactic Acid 1.4 mmol/L (0.7-2.0) 01/02/17 04:41 Calcium 8.6 mg/dL (8.4-10.2) 01/09/17 05:05 Phosphorus 2.9 mg/dL (2.5-4.5) 01/04/17 04:21 Magnesium 2.2 mg/dL (1.7-2.3) 01/09/17 05:05 Total Bilirubin 0.4 mg/dL (0.1-1.2) 01/01/17 00:47 Direct Bilirubin < 0.2 mg/dL (0-0.2) 01/01/17 00:47 Indirect Bilirubin 0.2 mg/dL 01/01/17 00:47 AST 49 units/L (5-40) H 01/01/17 00:47 ALT 39 units/L (7-56) 01/01/17 00:47 Alkaline Phosphatase 75 units/L (35-129) 01/01/17 00:47 Total Creatine Kinase 170 units/L (55-170) 01/01/17 00:47 CK-MB (CK-2) < 1.0 ng/mL (0.0-4.0) 01/01/17 00:47 Troponin T < 0.010 ng/mL (0.00-0.029) 01/01/17 00:47 NT-Pro-B Natriuret Pep 482.5 pg/mL (0-900) 01/01/17 00:47 Total Protein 8.2 g/dL (6.3-8.2) 01/01/17 00:47 Albumin 4.1 g/dL (3.9-5) 01/01/17 00:47 Albumin/Globulin Ratio 1.0 % 01/01/17 00:47 Angiotensin Convert Enz See scanned report 01/03/17 19:00 Urine Color Yellow (Yellow) 01/01/17 04:15 Urine Turbidity Clear (Clear) 01/01/17 04:15 Urine pH 5.0 (5.0-7.0) 01/01/17 04:15 Ur Specific [place] 1.023 (1.003-1.030) 01/01/17 04:15 Urine Protein 30 mg/dl mg/dL (Negative) 01/01/17 04:15 Urine Glucose (UA) 150 mg/dL (Negative) 01/01/17 04:15 Urine Ketones Tr mg/dL (Negative) 01/01/17 04:15 Urine Blood Neg (Negative) 01/01/17 04:15 Urine Nitrite Neg (Negative) 01/01/17 04:15 Ur Reducing Substances Not Reportable 01/01/17 04:15 Urine Bilirubin Neg (Negative) 01/01/17 04:15 Urine Ictotest Not Reportable 01/01/17 04:15 Urine Urobilinogen < 2.0 mg/dL (<2.0) 01/01/17 04:15 Ur Leukocyte Esterase Neg (Negative) 01/01/17 04:15 Urine WBC (Auto) 2.0 /HPF (0.0-6.0) 01/01/17 04:15 Urine RBC (Auto) 1.0 /HPF (0.0-6.0) 01/01/17 04:15 U Epithel Cells (Auto) < 1.0 /HPF (0-13.0) 01/01/17 04:15 Urine Mucus Few /HPF 01/01/17 04:15 MARGI Screen Negative (Negative) 01/03/17 19:00 Urine Legionella Ag Not detected (Not Detected) 01/01/17 04:26
[2017-01-09] MEDS: ZITHROMAX 500 MG in NACL 0.9% 250ML 250 ML IV SCH (23:59)
--- NOTE | 2017-01-10 10:54 | Progress Note ---
Assessment and Plan Assessment and plan: 1. left bronchiectasis Continue current antibiotics Rocephin and Zithromax, sputum for AFB, respiratory isolation, supportive care possible chest PT Follow-up chest x-ray no significant improvement Pulmonary following 2. Bilateral pneumonia, improved Continue current management 3. Electrolyte derangements --Hyponatremia, hypokalemia, resolved 4. DVT prophylaxis with Lovenox Patient's condition treatment plan discussed in detail with the patient, at the bedside Consults and recommendations noted and appreciated History Interval history: No new issues overnight. Hospitalist Physical - Constitutional Vitals: Temp Pulse Resp BP Pulse Ox 98.6 F 62 18 115/71 97 01/10/17 08:00 01/10/17 04:00 01/10/17 04:00 01/10/17 04:00 01/10/17 04:00 General appearance: Present: no acute distress, well-nourished - EENT Eyes: Present: PERRL, EOM intact ENT: hearing intact, clear oral mucosa, dentition normal - Neck Neck: Present: supple, normal ROM - Respiratory Respiratory effort: normal Respiratory: bilateral: CTA - Cardiovascular Rhythm: regular Heart Sounds: Present: S1 & S2. Absent: gallop, rub - Extremities Extremities: no ischemia, No edema, Full ROM - Abdominal General gastrointestinal: soft, non-tender, non-distended, normal bowel sounds - Integumentary Integumentary: Present: clear, warm, dry - Neurologic Neurologic: CNII-XII intact, moves all extremities Results - Labs CBC & Chem 7: 01/09/17 05:05 01/09/17 05:05 Labs: Laboratory Last Values WBC 5.8 K/mm3 (4.5-11.0) 01/09/17 05:05 RBC 5.22 M/mm3 (3.65-5.03) H 01/09/17 05:05 Hgb 11.7 gm/dl (11.8-15.2) L 01/09/17 05:05 Hct 37.3 % (35.5-45.6) 01/09/17 05:05 MCV 71 fl (84-94) L 01/09/17 05:05 MCH 23 pg (28-32) L 01/09/17 05:05 MCHC 32 % (32-34) 01/09/17 05:05 RDW 14.8 % (13.2-15.2) 01/09/17 05:05 Plt Count 281 K/mm3 (140-440) 01/09/17 05:05 Lymph % (Auto) 39.3 % (13.4-35.0) H 01/05/17 04:22 [place] % (Auto) 14.6 % (0.0-7.3) H 01/05/17 04:22 Eos % (Auto) 0.6 % (0.0-4.3) 01/05/17 04:22 Baso % (Auto) 0.4 % (0.0-1.8) 01/05/17 04:22 Lymph # 1.5 K/mm3 (1.2-5.4) 01/05/17 04:22 [place] # 0.6 K/mm3 (0.0-0.8) 01/05/17 04:22 Eos # 0.0 K/mm3 (0.0-0.4) 01/05/17 04:22 Baso # 0.0 K/mm3 (0.0-0.1) 01/05/17 04:22 Add Manual Diff Complete 01/09/17 05:05 Total Counted 100 01/09/17 05:05 Seg Neutrophils % 45.1 % (40.0-70.0) 01/05/17 04:22 Seg Neuts % (Manual) 71.0 % (40.0-70.0) H 01/09/17 05:05 Band Neutrophils % 0 % 01/09/17 05:05 Lymphocytes % (Manual) 19.0 % (13.4-35.0) 01/09/17 05:05 Reactive Lymphs % (Man) 0 % 01/09/17 05:05 Monocytes % (Manual) 10.0 % (0.0-7.3) H 01/09/17 05:05 Eosinophils % (Manual) 0 % (0.0-4.3) 01/09/17 05:05 Basophils % (Manual) 0 % (0.0-1.8) 01/09/17 05:05 Metamyelocytes % 0 % 01/09/17 05:05 Myelocytes % 0 % 01/09/17 05:05 Promyelocytes % 0 % 01/09/17 05:05 Blast Cells % 0 % 01/09/17 05:05 Nucleated RBC % Not Reportable 01/09/17 05:05 Seg Neutrophils # 1.7 K/mm3 (1.8-7.7) L 01/05/17 04:22 Seg Neutrophils # Man 4.1 K/mm3 (1.8-7.7) 01/09/17 05:05 Band Neutrophils # 0.0 K/mm3 01/09/17 05:05 Lymphocytes # (Manual) 1.1 K/mm3 (1.2-5.4) L 01/09/17 05:05 Abs React Lymphs (Man) 0.0 K/mm3 01/09/17 05:05 Monocytes # (Manual) 0.6 K/mm3 (0.0-0.8) 01/09/17 05:05 Eosinophils # (Manual) 0.0 K/mm3 (0.0-0.4) 01/09/17 05:05 Basophils # (Manual) 0.0 K/mm3 (0.0-0.1) 01/09/17 05:05 Metamyelocytes # 0.0 K/mm3 01/09/17 05:05 Myelocytes # 0.0 K/mm3 01/09/17 05:05 Promyelocytes # 0.0 K/mm3 01/09/17 05:05 Blast Cells # 0.0 K/mm3 01/09/17 05:05 WBC Morphology Not Reportable 01/09/17 05:05 Hypersegmented Neuts Not Reportable 01/09/17 05:05 Hyposegmented Neuts Not Reportable 01/09/17 05:05 Hypogranular Neuts Not Reportable 01/09/17 05:05 Smudge Cells Not Reportable 01/09/17 05:05 Toxic Granulation Not Reportable 01/09/17 05:05 Toxic Vacuolation Not Reportable 01/09/17 05:05 Dohle Bodies Not Reportable 01/09/17 05:05 Pelger-Huet Anomaly Not Reportable 01/09/17 05:05 Juani Rods Not Reportable 01/09/17 05:05 Platelet Estimate Appears normal 01/09/17 05:05 Clumped Platelets Not Reportable 01/09/17 05:05 Plt Clumps, EDTA Not Reportable 01/09/17 05:05 Large Platelets Few 01/09/17 05:05 Giant Platelets Not Reportable 01/09/17 05:05 Platelet Satelliting Not Reportable 01/09/17 05:05 Plt Morphology Comment Not Reportable 01/09/17 05:05 RBC Morphology Not Reportable 01/09/17 05:05 Dimorphic RBCs Not Reportable 01/09/17 05:05 Polychromasia Not Reportable 01/09/17 05:05 Hypochromasia 1+ 01/09/17 05:05 Poikilocytosis Not Reportable 01/09/17 05:05 Anisocytosis 2+ 01/09/17 05:05 Microcytosis Not Reportable 01/09/17 05:05 Macrocytosis Not Reportable 01/09/17 05:05 Spherocytes Not Reportable 01/09/17 05:05 Pappenheimer Bodies Not Reportable 01/09/17 05:05 Sickle Cells Not Reportable 01/09/17 05:05 Target Cells Not Reportable 01/09/17 05:05 Tear Drop Cells Not Reportable 01/09/17 05:05 Ovalocytes Not Reportable 01/09/17 05:05 Helmet Cells Not Reportable 01/09/17 05:05 [place] Bodies Not Reportable 01/09/17 05:05 [place] Rings Not Reportable 01/09/17 05:05 Clever Cells Not Reportable 01/09/17 05:05 Bite Cells Not Reportable 01/09/17 05:05 Crenated Cell Not Reportable 01/09/17 05:05 Elliptocytes 1+ 01/09/17 05:05 Acanthocytes (Spur) Not Reportable 01/09/17 05:05 Rouleaux Not Reportable 01/09/17 05:05 Hemoglobin C Crystals Not Reportable 01/09/17 05:05 Schistocytes Not Reportable 01/09/17 05:05 Malaria parasites Not Reportable 01/09/17 05:05 [place] Bodies Not Reportable 01/09/17 05:05 Hem Pathologist Commnt No 01/09/17 05:05 POC ABG pH 7.505 (7.35-7.45) H 01/08/17 11:48 POC ABG pCO2 30.6 (35-45) L 01/08/17 11:48 POC ABG pO2 94 (80-105) 01/08/17 11:48 POC ABG HCO3 24.2 01/08/17 11:48 POC ABG Total CO2 25 01/08/17 11:48 POC ABG O2 Sat 98 01/08/17 11:48 POC ABG Base Excess 1 01/08/17 11:48 VBG pH 7.401 (7.320-7.420) 01/01/17 00:47 FiO2 21 % 01/08/17 11:48 Sodium 141 mmol/L (137-145) 01/09/17 05:05 Potassium 4.3 mmol/L (3.6-5.0) 01/09/17 05:05 Chloride 102.4 mmol/L (98-107) 01/09/17 05:05 Carbon Dioxide 27 mmol/L (22-30) 01/09/17 05:05 Anion Gap 16 mmol/L 01/09/17 05:05 BUN 16 mg/dL (9-20) 01/09/17 05:05 Creatinine 1.2 mg/dL (0.8-1.5) 01/09/17 05:05 Estimated GFR > 60 ml/min 01/09/17 05:05 BUN/Creatinine Ratio 13.33 % 01/09/17 05:05 Glucose 122 mg/dL (75-100) H 01/09/17 05:05 POC Glucose 93 (70-105) 01/04/17 07:51 Lactic Acid 1.4 mmol/L (0.7-2.0) 01/02/17 04:41 Calcium 8.6 mg/dL (8.4-10.2) 01/09/17 05:05 Phosphorus 2.9 mg/dL (2.5-4.5) 01/04/17 04:21 Magnesium 2.2 mg/dL (1.7-2.3) 01/09/17 05:05 Total Bilirubin 0.4 mg/dL (0.1-1.2) 01/01/17 00:47 Direct Bilirubin < 0.2 mg/dL (0-0.2) 01/01/17 00:47 Indirect Bilirubin 0.2 mg/dL 01/01/17 00:47 AST 49 units/L (5-40) H 01/01/17 00:47 ALT 39 units/L (7-56) 01/01/17 00:47 Alkaline Phosphatase 75 units/L (35-129) 01/01/17 00:47 Total Creatine Kinase 170 units/L (55-170) 01/01/17 00:47 CK-MB (CK-2) < 1.0 ng/mL (0.0-4.0) 01/01/17 00:47 Troponin T < 0.010 ng/mL (0.00-0.029) 01/01/17 00:47 NT-Pro-B Natriuret Pep 482.5 pg/mL (0-900) 01/01/17 00:47 Total Protein 8.2 g/dL (6.3-8.2) 01/01/17 00:47 Albumin 4.1 g/dL (3.9-5) 01/01/17 00:47 Albumin/Globulin Ratio 1.0 % 01/01/17 00:47 Angiotensin Convert Enz See scanned report 01/03/17 19:00 Urine Color Yellow (Yellow) 01/01/17 04:15 Urine Turbidity Clear (Clear) 01/01/17 04:15 Urine pH 5.0 (5.0-7.0) 01/01/17 04:15 Ur Specific [place] 1.023 (1.003-1.030) 01/01/17 04:15 Urine Protein 30 mg/dl mg/dL (Negative) 01/01/17 04:15 Urine Glucose (UA) 150 mg/dL (Negative) 01/01/17 04:15 Urine Ketones Tr mg/dL (Negative) 01/01/17 04:15 Urine Blood Neg (Negative) 01/01/17 04:15 Urine Nitrite Neg (Negative) 01/01/17 04:15 Ur Reducing Substances Not Reportable 01/01/17 04:15 Urine Bilirubin Neg (Negative) 01/01/17 04:15 Urine Ictotest Not Reportable 01/01/17 04:15 Urine Urobilinogen < 2.0 mg/dL (<2.0) 01/01/17 04:15 Ur Leukocyte Esterase Neg (Negative) 01/01/17 04:15 Urine WBC (Auto) 2.0 /HPF (0.0-6.0) 01/01/17 04:15 Urine RBC (Auto) 1.0 /HPF (0.0-6.0) 01/01/17 04:15 U Epithel Cells (Auto) < 1.0 /HPF (0-13.0) 01/01/17 04:15 Urine Mucus Few /HPF 01/01/17 04:15 MARGI Screen Negative (Negative) 01/03/17 19:00 Urine Legionella Ag Not detected (Not Detected) 01/01/17 04:26 TB (QFT) Gold In Tube Negative (Negative) 01/07/17 07:52 TB Test (QFT) Nil 0.11 IU/mL 01/07/17 07:52 TB Test Mitogen - Nil 9.53 IU/mL 01/07/17 07:52 TB Test Antigen - Nil 0.02 IU/mL 01/07/17 07:52
[2017-01-10] MEDS: TUMS PO SCH ×2 (11:00→21:50)
[2017-01-10] MEDS: ROCEPHIN/NS 1 GM/50 ML 1 GM/50 ML BAG IV SCH ×2 (11:00→21:50)
[2017-01-10] MEDS: LOVENOX SUB-Q SCH (11:00)
--- NOTE | 2017-01-10 13:17 | Progress Note ---
Assessment and Plan Patient alert,awake and resting on room air. Still complaining some cough.No acute respiratory distress.Patient afebrile. sputums for AFB results pending O2 satuaration 97% on room air. - Patient Problems (1) Bronchiectasis with (acute) exacerbation Current Visit: Yes Status: Acute Plan to address problem: Continue present antibiotics Continue aerosolized bronchodilators. PFTs as outpatient PPD and Edilma skin test. Sputum for AFB x 3 Respiratory isolation. Subjective Date of service: 01/10/17 Principal diagnosis: Pneumonia; Acute Bronchiectasis exacerbation Interval history: Patient alert,awake and resting on room air. Still complaining some cough.No acute respiratory distress.Patient afebrile. Sputums for AFB results pending Patients O2 satuaration 97% on room air. Objective Vital Signs - 12hr 01/10/17 01/10/17 04:00 08:00 Temperature 96 F L 98.6 F Pulse Rate [ 62 From Monitor] Respiratory 18 Rate Blood Pressure 115/71 [Right Arm] O2 Sat by Pulse 97 Oximetry Constitutional: no acute distress, alert Eyes: non-icteric ENT: oropharynx moist Neck: supple, no lymphadenopathy Effort: normal Ascultation: Left: rales (base), rhonchi, Bilateral: diminished breath sounds Cardiovascular: regular rate and rhythm Gastrointestinal: normoactive bowel sounds, soft, non-tender, non-distended Integumentary: normal Extremities: no cyanosis, no edema, pink and warm, pulses normal, no ischemia or petechiae Neurologic: normal mental status, non-focal exam, pupils equal and round, CN II- XII normal Psychiatric: mood appropriate, affect normal CBC and BMP: 01/09/17 05:05 01/09/17 05:05 ABG, PT/INR, D-dimer: ABG POC ABG pH 7.505 (7.35-7.45) H 01/08/17 11:48 POC ABG pCO2 30.6 (35-45) L 01/08/17 11:48 POC ABG pO2 94 (80-105) 01/08/17 11:48 POC ABG HCO3 24.2 01/08/17 11:48 POC ABG Total CO2 25 01/08/17 11:48 POC ABG O2 Sat 98 01/08/17 11:48 Abnormal lab findings: Abnormal Labs 01/01/17 01/02/17 01/02/17 15:21 04:41 04:41 WBC RBC 5.25 H Hgb Hct MCV 72 L MCH 23 L MCHC 31 L RDW 15.3 H Plt Count Lymph % (Auto) [place] % (Auto) Lymph # 0.9 L Seg Neutrophils % 78.0 H Seg Neuts % (Manual) Monocytes % (Manual) Seg Neutrophils # Lymphocytes # (Manual) POC ABG pH POC ABG pCO2 Sodium Potassium Glucose 148 H POC Glucose 128 H Calcium 7.6 L 01/03/17 01/04/17 01/04/17 04:34 04:21 04:21 WBC 3.6 L RBC Hgb 11.0 L Hct 35.1 L MCV 71 L MCH 22 L MCHC 31 L RDW Plt Count 139 L Lymph % (Auto) [place] % (Auto) 13.5 H Lymph # 0.9 L Seg Neutrophils % Seg Neuts % (Manual) Monocytes % (Manual) Seg Neutrophils # Lymphocytes # (Manual) POC ABG pH POC ABG pCO2 Sodium 135 L Potassium 3.4 L Glucose 104 H 179 H POC Glucose Calcium 7.4 L 7.7 L 01/05/17 01/05/17 01/08/17 04:22 04:22 04:11 WBC 3.8 L RBC 5.05 H Hgb 11.4 L Hct MCV 71 L MCH 23 L MCHC RDW Plt Count Lymph % (Auto) 39.3 H [place] % (Auto) 14.6 H Lymph # Seg Neutrophils % Seg Neuts % (Manual) Monocytes % (Manual) Seg Neutrophils # 1.7 L Lymphocytes # (Manual) POC ABG pH POC ABG pCO2 Sodium Potassium Glucose 164 H 134 H POC Glucose Calcium 8.3 L 01/08/17 01/09/17 01/09/17 11:48 05:05 05:05 WBC RBC 5.22 H Hgb 11.7 L Hct MCV 71 L MCH 23 L MCHC RDW Plt Count Lymph % (Auto) [place] % (Auto) Lymph # Seg Neutrophils % Seg Neuts % (Manual) 71.0 H Monocytes % (Manual) 10.0 H Seg Neutrophils # Lymphocytes # (Manual) 1.1 L POC ABG pH 7.505 H POC ABG pCO2 30.6 L Sodium Potassium Glucose 122 H POC Glucose Calcium Chest x-ray: report reviewed (Minimal improvement in cystic changes.), image reviewed
[2017-01-10] MEDS: ZITHROMAX 500 MG in NACL 0.9% 250ML 250 ML IV SCH (23:06)
--- NOTE | 2017-01-11 11:00 | Progress Note ---
Assessment and Plan Assessment and plan: 1. Left bronchiectasis Continue current antibiotics Rocephin and Zithromax, sputum for AFB, respiratory isolation, supportive care possible chest PT Follow-up chest x-ray Pulmonary following 2. Bilateral pneumonia, improved Continue current management 3. Electrolyte derangements --Hyponatremia, hypokalemia, resolved 4. DVT prophylaxis with Lovenox History Interval history: No new issues overnight. Hospitalist Physical - Constitutional Vitals: Temp Pulse Resp BP Pulse Ox 98.1 F 71 20 133/72 97 01/10/17 20:00 01/10/17 20:00 01/10/17 20:00 01/10/17 20:00 01/10/17 20:00 General appearance: Present: no acute distress, well-nourished - EENT Eyes: Present: PERRL, EOM intact ENT: hearing intact, clear oral mucosa, dentition normal - Neck Neck: Present: supple, normal ROM - Respiratory Respiratory effort: normal Respiratory: bilateral: diminished, rhonchi - Cardiovascular Rhythm: regular Heart Sounds: Present: S1 & S2. Absent: gallop, rub - Extremities Extremities: no ischemia, No edema, Full ROM - Abdominal General gastrointestinal: soft, non-tender, non-distended, normal bowel sounds - Integumentary Integumentary: Present: clear, warm, dry - Neurologic Neurologic: CNII-XII intact, moves all extremities Results - Labs CBC & Chem 7: 01/09/17 05:05 01/09/17 05:05 Labs: Laboratory Last Values WBC 5.8 K/mm3 (4.5-11.0) 01/09/17 05:05 RBC 5.22 M/mm3 (3.65-5.03) H 01/09/17 05:05 Hgb 11.7 gm/dl (11.8-15.2) L 01/09/17 05:05 Hct 37.3 % (35.5-45.6) 01/09/17 05:05 MCV 71 fl (84-94) L 01/09/17 05:05 MCH 23 pg (28-32) L 01/09/17 05:05 MCHC 32 % (32-34) 01/09/17 05:05 RDW 14.8 % (13.2-15.2) 01/09/17 05:05 Plt Count 281 K/mm3 (140-440) 01/09/17 05:05 Lymph % (Auto) 39.3 % (13.4-35.0) H 01/05/17 04:22 [place] % (Auto) 14.6 % (0.0-7.3) H 01/05/17 04:22 Eos % (Auto) 0.6 % (0.0-4.3) 01/05/17 04:22 Baso % (Auto) 0.4 % (0.0-1.8) 01/05/17 04:22 Lymph # 1.5 K/mm3 (1.2-5.4) 01/05/17 04:22 [place] # 0.6 K/mm3 (0.0-0.8) 01/05/17 04:22 Eos # 0.0 K/mm3 (0.0-0.4) 01/05/17 04:22 Baso # 0.0 K/mm3 (0.0-0.1) 01/05/17 04:22 Add Manual Diff Complete 01/09/17 05:05 Total Counted 100 01/09/17 05:05 Seg Neutrophils % 45.1 % (40.0-70.0) 01/05/17 04:22 Seg Neuts % (Manual) 71.0 % (40.0-70.0) H 01/09/17 05:05 Band Neutrophils % 0 % 01/09/17 05:05 Lymphocytes % (Manual) 19.0 % (13.4-35.0) 01/09/17 05:05 Reactive Lymphs % (Man) 0 % 01/09/17 05:05 Monocytes % (Manual) 10.0 % (0.0-7.3) H 01/09/17 05:05 Eosinophils % (Manual) 0 % (0.0-4.3) 01/09/17 05:05 Basophils % (Manual) 0 % (0.0-1.8) 01/09/17 05:05 Metamyelocytes % 0 % 01/09/17 05:05 Myelocytes % 0 % 01/09/17 05:05 Promyelocytes % 0 % 01/09/17 05:05 Blast Cells % 0 % 01/09/17 05:05 Nucleated RBC % Not Reportable 01/09/17 05:05 Seg Neutrophils # 1.7 K/mm3 (1.8-7.7) L 01/05/17 04:22 Seg Neutrophils # Man 4.1 K/mm3 (1.8-7.7) 01/09/17 05:05 Band Neutrophils # 0.0 K/mm3 01/09/17 05:05 Lymphocytes # (Manual) 1.1 K/mm3 (1.2-5.4) L 01/09/17 05:05 Abs React Lymphs (Man) 0.0 K/mm3 01/09/17 05:05 Monocytes # (Manual) 0.6 K/mm3 (0.0-0.8) 01/09/17 05:05 Eosinophils # (Manual) 0.0 K/mm3 (0.0-0.4) 01/09/17 05:05 Basophils # (Manual) 0.0 K/mm3 (0.0-0.1) 01/09/17 05:05 Metamyelocytes # 0.0 K/mm3 01/09/17 05:05 Myelocytes # 0.0 K/mm3 01/09/17 05:05 Promyelocytes # 0.0 K/mm3 01/09/17 05:05 Blast Cells # 0.0 K/mm3 01/09/17 05:05 WBC Morphology Not Reportable 01/09/17 05:05 Hypersegmented Neuts Not Reportable 01/09/17 05:05 Hyposegmented Neuts Not Reportable 01/09/17 05:05 Hypogranular Neuts Not Reportable 01/09/17 05:05 Smudge Cells Not Reportable 01/09/17 05:05 Toxic Granulation Not Reportable 01/09/17 05:05 Toxic Vacuolation Not Reportable 01/09/17 05:05 Dohle Bodies Not Reportable 01/09/17 05:05 Pelger-Huet Anomaly Not Reportable 01/09/17 05:05 Juani Rods Not Reportable 01/09/17 05:05 Platelet Estimate Appears normal 01/09/17 05:05 Clumped Platelets Not Reportable 01/09/17 05:05 Plt Clumps, EDTA Not Reportable 01/09/17 05:05 Large Platelets Few 01/09/17 05:05 Giant Platelets Not Reportable 01/09/17 05:05 Platelet Satelliting Not Reportable 01/09/17 05:05 Plt Morphology Comment Not Reportable 01/09/17 05:05 RBC Morphology Not Reportable 01/09/17 05:05 Dimorphic RBCs Not Reportable 01/09/17 05:05 Polychromasia Not Reportable 01/09/17 05:05 Hypochromasia 1+ 01/09/17 05:05 Poikilocytosis Not Reportable 01/09/17 05:05 Anisocytosis 2+ 01/09/17 05:05 Microcytosis Not Reportable 01/09/17 05:05 Macrocytosis Not Reportable 01/09/17 05:05 Spherocytes Not Reportable 01/09/17 05:05 Pappenheimer Bodies Not Reportable 01/09/17 05:05 Sickle Cells Not Reportable 01/09/17 05:05 Target Cells Not Reportable 01/09/17 05:05 Tear Drop Cells Not Reportable 01/09/17 05:05 Ovalocytes Not Reportable 01/09/17 05:05 Helmet Cells Not Reportable 01/09/17 05:05 [place] Bodies Not Reportable 01/09/17 05:05 [place] Rings Not Reportable 01/09/17 05:05 [place] Cells Not Reportable 01/09/17 05:05 Bite Cells Not Reportable 01/09/17 05:05 Crenated Cell Not Reportable 01/09/17 05:05 Elliptocytes 1+ 01/09/17 05:05 Acanthocytes (Spur) Not Reportable 01/09/17 05:05 Rouleaux Not Reportable 01/09/17 05:05 Hemoglobin C Crystals Not Reportable 01/09/17 05:05 Schistocytes Not Reportable 01/09/17 05:05 Malaria parasites Not Reportable 01/09/17 05:05 [place] Bodies Not Reportable 01/09/17 05:05 Hem Pathologist Commnt No 01/09/17 05:05 POC ABG pH 7.505 (7.35-7.45) H 01/08/17 11:48 POC ABG pCO2 30.6 (35-45) L 01/08/17 11:48 POC ABG pO2 94 (80-105) 01/08/17 11:48 POC ABG HCO3 24.2 01/08/17 11:48 POC ABG Total CO2 25 01/08/17 11:48 POC ABG O2 Sat 98 01/08/17 11:48 POC ABG Base Excess 1 01/08/17 11:48 VBG pH 7.401 (7.320-7.420) 01/01/17 00:47 FiO2 21 % 01/08/17 11:48 Sodium 141 mmol/L (137-145) 01/09/17 05:05 Potassium 4.3 mmol/L (3.6-5.0) 01/09/17 05:05 Chloride 102.4 mmol/L (98-107) 01/09/17 05:05 Carbon Dioxide 27 mmol/L (22-30) 01/09/17 05:05 Anion Gap 16 mmol/L 01/09/17 05:05 BUN 16 mg/dL (9-20) 01/09/17 05:05 Creatinine 1.2 mg/dL (0.8-1.5) 01/09/17 05:05 Estimated GFR > 60 ml/min 01/09/17 05:05 BUN/Creatinine Ratio 13.33 % 01/09/17 05:05 Glucose 122 mg/dL (75-100) H 01/09/17 05:05 POC Glucose 95 (70-105) 01/10/17 08:04 Lactic Acid 1.4 mmol/L (0.7-2.0) 01/02/17 04:41 Calcium 8.6 mg/dL (8.4-10.2) 01/09/17 05:05 Phosphorus 2.9 mg/dL (2.5-4.5) 01/04/17 04:21 Magnesium 2.2 mg/dL (1.7-2.3) 01/09/17 05:05 Total Bilirubin 0.4 mg/dL (0.1-1.2) 01/01/17 00:47 Direct Bilirubin < 0.2 mg/dL (0-0.2) 01/01/17 00:47 Indirect Bilirubin 0.2 mg/dL 01/01/17 00:47 AST 49 units/L (5-40) H 01/01/17 00:47 ALT 39 units/L (7-56) 01/01/17 00:47 Alkaline Phosphatase 75 units/L (35-129) 01/01/17 00:47 Total Creatine Kinase 170 units/L (55-170) 01/01/17 00:47 CK-MB (CK-2) < 1.0 ng/mL (0.0-4.0) 01/01/17 00:47 Troponin T < 0.010 ng/mL (0.00-0.029) 01/01/17 00:47 NT-Pro-B Natriuret Pep 482.5 pg/mL (0-900) 01/01/17 00:47 Total Protein 8.2 g/dL (6.3-8.2) 01/01/17 00:47 Albumin 4.1 g/dL (3.9-5) 01/01/17 00:47 Albumin/Globulin Ratio 1.0 % 01/01/17 00:47 Angiotensin Convert Enz See scanned report 01/03/17 19:00 Urine Color Yellow (Yellow) 01/01/17 04:15 Urine Turbidity Clear (Clear) 01/01/17 04:15 Urine pH 5.0 (5.0-7.0) 01/01/17 04:15 Ur Specific [place] 1.023 (1.003-1.030) 01/01/17 04:15 Urine Protein 30 mg/dl mg/dL (Negative) 01/01/17 04:15 Urine Glucose (UA) 150 mg/dL (Negative) 01/01/17 04:15 Urine Ketones Tr mg/dL (Negative) 01/01/17 04:15 Urine Blood Neg (Negative) 01/01/17 04:15 Urine Nitrite Neg (Negative) 01/01/17 04:15 Ur Reducing Substances Not Reportable 01/01/17 04:15 Urine Bilirubin Neg (Negative) 01/01/17 04:15 Urine Ictotest Not Reportable 01/01/17 04:15 Urine Urobilinogen < 2.0 mg/dL (<2.0) 01/01/17 04:15 Ur Leukocyte Esterase Neg (Negative) 01/01/17 04:15 Urine WBC (Auto) 2.0 /HPF (0.0-6.0) 01/01/17 04:15 Urine RBC (Auto) 1.0 /HPF (0.0-6.0) 01/01/17 04:15 U Epithel Cells (Auto) < 1.0 /HPF (0-13.0) 01/01/17 04:15 Urine Mucus Few /HPF 01/01/17 04:15 MARGI Screen Negative (Negative) 01/03/17 19:00 Urine Legionella Ag Not detected (Not Detected) 01/01/17 04:26 TB (QFT) Gold In Tube Negative (Negative) 01/07/17 07:52 TB Test (QFT) Nil 0.11 IU/mL 01/07/17 07:52 TB Test Mitogen - Nil 9.53 IU/mL 01/07/17 07:52 TB Test Antigen - Nil 0.02 IU/mL 01/07/17 07:52
[2017-01-11] MEDS: TUMS PO SCH ×2 (11:32→21:35)
[2017-01-11] MEDS: LOVENOX SUB-Q SCH (11:33)
[2017-01-11] MEDS: ROCEPHIN/NS 1 GM/50 ML 1 GM/50 ML BAG IV SCH ×2 (11:33→21:35)
--- NOTE | 2017-01-11 14:11 | Progress Note ---
Assessment and Plan Patient alert,awake and resting on room air. Still complaining some cough.No acute respiratory distress.Patient afebrile. I was told one sputum for AFB and PPD are negativePatients O2 satuaration 98% on room air. If othe spurum for AFB also negative, Patient can be discharged from pulmonary point of view and can follow pulmonary problems as an out patient.in my office. - Patient Problems (1) Bronchiectasis with (acute) exacerbation Current Visit: Yes Status: Acute Plan to address problem: Continue present antibiotics Continue aerosolized bronchodilators. PFTs as outpatient Respiratory isolation ca be D/C if other sputum also negative for AFB. Subjective Date of service: 01/11/17 Principal diagnosis: Pneumonia; Acute Bronchiectasis exacerbation Interval history: Patient alert,awake and resting on room air. Still complaining some cough.No acute respiratory distress.Patient afebrile. I was told one sputum for AFB and PPD are negativePatients O2 satuaration 98% on room air. If othe spurum for AFB also negative, Patient can be discharged from pulmonary point of view and can follow pulmonary problems as an out patient.in my office. Objective Vital Signs - 12hr 01/11/17 08:00 Temperature 98.6 F Pulse Rate [ 68 From Monitor] Respiratory 20 Rate Blood Pressure 143/77 [Left Arm] O2 Sat by Pulse 98 Oximetry Constitutional: no acute distress, alert Eyes: non-icteric ENT: oropharynx moist Neck: supple, no lymphadenopathy Effort: normal Ascultation: Left: rales (base), rhonchi, Bilateral: diminished breath sounds Cardiovascular: regular rate and rhythm Gastrointestinal: normoactive bowel sounds, soft, non-tender, non-distended Integumentary: normal Extremities: no cyanosis, no edema, pink and warm, pulses normal, no ischemia or petechiae Neurologic: normal mental status, non-focal exam, pupils equal and round, CN II- XII normal Psychiatric: mood appropriate, affect normal CBC and BMP: 01/09/17 05:05 01/09/17 05:05 ABG, PT/INR, D-dimer: ABG POC ABG pH 7.505 (7.35-7.45) H 01/08/17 11:48 POC ABG pCO2 30.6 (35-45) L 01/08/17 11:48 POC ABG pO2 94 (80-105) 01/08/17 11:48 POC ABG HCO3 24.2 01/08/17 11:48 POC ABG Total CO2 25 01/08/17 11:48 POC ABG O2 Sat 98 01/08/17 11:48 Abnormal lab findings: Abnormal Labs 01/01/17 01/02/17 01/02/17 15:21 04:41 04:41 WBC RBC 5.25 H Hgb Hct MCV 72 L MCH 23 L MCHC 31 L RDW 15.3 H Plt Count Lymph % (Auto) [place] % (Auto) Lymph # 0.9 L Seg Neutrophils % 78.0 H Seg Neuts % (Manual) Monocytes % (Manual) Seg Neutrophils # Lymphocytes # (Manual) POC ABG pH POC ABG pCO2 Sodium Potassium Glucose 148 H POC Glucose 128 H Calcium 7.6 L 01/03/17 01/04/17 01/04/17 04:34 04:21 04:21 WBC 3.6 L RBC Hgb 11.0 L Hct 35.1 L MCV 71 L MCH 22 L MCHC 31 L RDW Plt Count 139 L Lymph % (Auto) [place] % (Auto) 13.5 H Lymph # 0.9 L Seg Neutrophils % Seg Neuts % (Manual) Monocytes % (Manual) Seg Neutrophils # Lymphocytes # (Manual) POC ABG pH POC ABG pCO2 Sodium 135 L Potassium 3.4 L Glucose 104 H 179 H POC Glucose Calcium 7.4 L 7.7 L 01/05/17 01/05/17 01/08/17 04:22 04:22 04:11 WBC 3.8 L RBC 5.05 H Hgb 11.4 L Hct MCV 71 L MCH 23 L MCHC RDW Plt Count Lymph % (Auto) 39.3 H [place] % (Auto) 14.6 H Lymph # Seg Neutrophils % Seg Neuts % (Manual) Monocytes % (Manual) Seg Neutrophils # 1.7 L Lymphocytes # (Manual) POC ABG pH POC ABG pCO2 Sodium Potassium Glucose 164 H 134 H POC Glucose Calcium 8.3 L 01/08/17 01/09/17 01/09/17 11:48 05:05 05:05 WBC RBC 5.22 H Hgb 11.7 L Hct MCV 71 L MCH 23 L MCHC RDW Plt Count Lymph % (Auto) [place] % (Auto) Lymph # Seg Neutrophils % Seg Neuts % (Manual) 71.0 H Monocytes % (Manual) 10.0 H Seg Neutrophils # Lymphocytes # (Manual) 1.1 L POC ABG pH 7.505 H POC ABG pCO2 30.6 L Sodium Potassium Glucose 122 H POC Glucose Calcium
[2017-01-11] MEDS: ZITHROMAX 500 MG in NACL 0.9% 250ML 250 ML IV SCH (21:35)
[2017-01-12] MEDS: TUMS PO SCH ×2 (10:34→23:23)
[2017-01-12] MEDS: LOVENOX SUB-Q SCH (10:35)
[2017-01-12] MEDS: ROCEPHIN/NS 1 GM/50 ML 1 GM/50 ML BAG IV SCH (10:36)
--- NOTE | 2017-01-12 19:48 | Progress Note ---
Assessment and Plan Patient alert,awake and resting on room air. Still complaining some cough.No acute respiratory distress.Patient afebrile. I was told one sputum for AFB and PPD are negativePatients O2 satuaration 97% on room air. If othe spurum for AFB also negative, Patient can be discharged from pulmonary point of view and can follow pulmonary problems as an out patient.in my office. - Patient Problems (1) Bronchiectasis with (acute) exacerbation Current Visit: Yes Status: Acute Plan to address problem: Continue present antibiotics Continue aerosolized bronchodilators. PFTs as outpatient Respiratory isolation ca be D/C if other sputum also negative for AFB. Subjective Date of service: 01/12/17 Principal diagnosis: Pneumonia; Acute Bronchiectasis exacerbation Interval history: Patient alert,awake and resting on room air. Still complaining some cough.No acute respiratory distress.Patient afebrile. I was told one sputum for AFB and PPD are negative Patients O2 satuaration 97% on room air. If othe spurum for AFB also negative, Patient can be discharged from pulmonary point of view and can follow pulmonary problems as an out patient.in my office. Objective Vital Signs - 12hr 01/12/17 10:00 Pulse Rate [ 70 From Monitor] Constitutional: no acute distress, alert Eyes: non-icteric ENT: oropharynx moist Neck: supple, no lymphadenopathy Effort: normal Ascultation: Left: rales (base), rhonchi, Bilateral: diminished breath sounds Cardiovascular: regular rate and rhythm Gastrointestinal: normoactive bowel sounds, soft, non-tender, non-distended Integumentary: normal Extremities: no cyanosis, no edema, pink and warm, pulses normal, no ischemia or petechiae Neurologic: normal mental status, non-focal exam, pupils equal and round, CN II- XII normal Psychiatric: mood appropriate, affect normal CBC and BMP: 01/09/17 05:05 01/09/17 05:05 ABG, PT/INR, D-dimer: ABG POC ABG pH 7.505 (7.35-7.45) H 01/08/17 11:48 POC ABG pCO2 30.6 (35-45) L 01/08/17 11:48 POC ABG pO2 94 (80-105) 01/08/17 11:48 POC ABG HCO3 24.2 01/08/17 11:48 POC ABG Total CO2 25 01/08/17 11:48 POC ABG O2 Sat 98 01/08/17 11:48 Abnormal lab findings: Abnormal Labs 01/01/17 01/02/17 01/02/17 15:21 04:41 04:41 WBC RBC 5.25 H Hgb Hct MCV 72 L MCH 23 L MCHC 31 L RDW 15.3 H Plt Count Lymph % (Auto) [place] % (Auto) Lymph # 0.9 L Seg Neutrophils % 78.0 H Seg Neuts % (Manual) Monocytes % (Manual) Seg Neutrophils # Lymphocytes # (Manual) POC ABG pH POC ABG pCO2 Sodium Potassium Glucose 148 H POC Glucose 128 H Calcium 7.6 L 01/03/17 01/04/17 01/04/17 04:34 04:21 04:21 WBC 3.6 L RBC Hgb 11.0 L Hct 35.1 L MCV 71 L MCH 22 L MCHC 31 L RDW Plt Count 139 L Lymph % (Auto) [place] % (Auto) 13.5 H Lymph # 0.9 L Seg Neutrophils % Seg Neuts % (Manual) Monocytes % (Manual) Seg Neutrophils # Lymphocytes # (Manual) POC ABG pH POC ABG pCO2 Sodium 135 L Potassium 3.4 L Glucose 104 H 179 H POC Glucose Calcium 7.4 L 7.7 L 01/05/17 01/05/17 01/08/17 04:22 04:22 04:11 WBC 3.8 L RBC 5.05 H Hgb 11.4 L Hct MCV 71 L MCH 23 L MCHC RDW Plt Count Lymph % (Auto) 39.3 H [place] % (Auto) 14.6 H Lymph # Seg Neutrophils % Seg Neuts % (Manual) Monocytes % (Manual) Seg Neutrophils # 1.7 L Lymphocytes # (Manual) POC ABG pH POC ABG pCO2 Sodium Potassium Glucose 164 H 134 H POC Glucose Calcium 8.3 L 01/08/17 01/09/17 01/09/17 11:48 05:05 05:05 WBC RBC 5.22 H Hgb 11.7 L Hct MCV 71 L MCH 23 L MCHC RDW Plt Count Lymph % (Auto) [place] % (Auto) Lymph # Seg Neutrophils % Seg Neuts % (Manual) 71.0 H Monocytes % (Manual) 10.0 H Seg Neutrophils # Lymphocytes # (Manual) 1.1 L POC ABG pH 7.505 H POC ABG pCO2 30.6 L Sodium Potassium Glucose 122 H POC Glucose Calcium
[2017-01-12] MEDS: ZITHROMAX 500 MG in NACL 0.9% 250ML 250 ML IV SCH (23:23)
[2017-01-13] MEDS: ROCEPHIN/NS 1 GM/50 ML 1 GM/50 ML BAG IV SCH (10:12)
[2017-01-13] MEDS: LOVENOX SUB-Q SCH (10:12)
--- NOTE | 2017-01-13 10:37 | Progress Note ---
Assessment and Plan Assessment and plan: 1. Left bronchiectasis Continue current antibiotics Rocephin and Zithromax, sputum for AFB--if second sample negative, we will discharge home per pulmonary recommendations. respiratory isolation, supportive care Pulmonary following 2. Bilateral pneumonia, improved Continue current management 3. Electrolyte derangements --Hyponatremia, hypokalemia, resolved 4. DVT prophylaxis with Lovenox History Interval history: No new issues overnight. Hospitalist Physical - Constitutional Vitals: Temp Pulse Resp BP Pulse Ox 96.6 F L 70 18 137/74 97 01/11/17 20:08 01/12/17 10:00 01/11/17 22:00 01/11/17 20:08 01/11/17 20:08 General appearance: Present: no acute distress, well-nourished - EENT Eyes: Present: PERRL, EOM intact ENT: hearing intact, clear oral mucosa, dentition normal - Neck Neck: Present: supple, normal ROM - Respiratory Respiratory effort: normal Respiratory: bilateral: CTA - Cardiovascular Rhythm: regular Heart Sounds: Present: S1 & S2. Absent: gallop, rub - Extremities Extremities: no ischemia, No edema, Full ROM - Abdominal General gastrointestinal: soft, non-tender, non-distended, normal bowel sounds - Integumentary Integumentary: Present: clear, warm, dry - Neurologic Neurologic: CNII-XII intact, moves all extremities Results - Labs CBC & Chem 7: 01/09/17 05:05 01/09/17 05:05 Labs: Laboratory Last Values WBC 5.8 K/mm3 (4.5-11.0) 01/09/17 05:05 RBC 5.22 M/mm3 (3.65-5.03) H 01/09/17 05:05 Hgb 11.7 gm/dl (11.8-15.2) L 01/09/17 05:05 Hct 37.3 % (35.5-45.6) 01/09/17 05:05 MCV 71 fl (84-94) L 01/09/17 05:05 MCH 23 pg (28-32) L 01/09/17 05:05 MCHC 32 % (32-34) 01/09/17 05:05 RDW 14.8 % (13.2-15.2) 01/09/17 05:05 Plt Count 281 K/mm3 (140-440) 01/09/17 05:05 Lymph % (Auto) 39.3 % (13.4-35.0) H 01/05/17 04:22 [place] % (Auto) 14.6 % (0.0-7.3) H 01/05/17 04:22 Eos % (Auto) 0.6 % (0.0-4.3) 01/05/17 04:22 Baso % (Auto) 0.4 % (0.0-1.8) 01/05/17 04:22 Lymph # 1.5 K/mm3 (1.2-5.4) 01/05/17 04:22 [place] # 0.6 K/mm3 (0.0-0.8) 01/05/17 04:22 Eos # 0.0 K/mm3 (0.0-0.4) 01/05/17 04:22 Baso # 0.0 K/mm3 (0.0-0.1) 01/05/17 04:22 Add Manual Diff Complete 01/09/17 05:05 Total Counted 100 01/09/17 05:05 Seg Neutrophils % 45.1 % (40.0-70.0) 01/05/17 04:22 Seg Neuts % (Manual) 71.0 % (40.0-70.0) H 01/09/17 05:05 Band Neutrophils % 0 % 01/09/17 05:05 Lymphocytes % (Manual) 19.0 % (13.4-35.0) 01/09/17 05:05 Reactive Lymphs % (Man) 0 % 01/09/17 05:05 Monocytes % (Manual) 10.0 % (0.0-7.3) H 01/09/17 05:05 Eosinophils % (Manual) 0 % (0.0-4.3) 01/09/17 05:05 Basophils % (Manual) 0 % (0.0-1.8) 01/09/17 05:05 Metamyelocytes % 0 % 01/09/17 05:05 Myelocytes % 0 % 01/09/17 05:05 Promyelocytes % 0 % 01/09/17 05:05 Blast Cells % 0 % 01/09/17 05:05 Nucleated RBC % Not Reportable 01/09/17 05:05 Seg Neutrophils # 1.7 K/mm3 (1.8-7.7) L 01/05/17 04:22 Seg Neutrophils # Man 4.1 K/mm3 (1.8-7.7) 01/09/17 05:05 Band Neutrophils # 0.0 K/mm3 01/09/17 05:05 Lymphocytes # (Manual) 1.1 K/mm3 (1.2-5.4) L 01/09/17 05:05 Abs React Lymphs (Man) 0.0 K/mm3 01/09/17 05:05 Monocytes # (Manual) 0.6 K/mm3 (0.0-0.8) 01/09/17 05:05 Eosinophils # (Manual) 0.0 K/mm3 (0.0-0.4) 01/09/17 05:05 Basophils # (Manual) 0.0 K/mm3 (0.0-0.1) 01/09/17 05:05 Metamyelocytes # 0.0 K/mm3 01/09/17 05:05 Myelocytes # 0.0 K/mm3 01/09/17 05:05 Promyelocytes # 0.0 K/mm3 01/09/17 05:05 Blast Cells # 0.0 K/mm3 01/09/17 05:05 WBC Morphology Not Reportable 01/09/17 05:05 Hypersegmented Neuts Not Reportable 01/09/17 05:05 Hyposegmented Neuts Not Reportable 01/09/17 05:05 Hypogranular Neuts Not Reportable 01/09/17 05:05 Smudge Cells Not Reportable 01/09/17 05:05 Toxic Granulation Not Reportable 01/09/17 05:05 Toxic Vacuolation Not Reportable 01/09/17 05:05 Dohle Bodies Not Reportable 01/09/17 05:05 Pelger-Huet Anomaly Not Reportable 01/09/17 05:05 Juani Rods Not Reportable 01/09/17 05:05 Platelet Estimate Appears normal 01/09/17 05:05 Clumped Platelets Not Reportable 01/09/17 05:05 Plt Clumps, EDTA Not Reportable 01/09/17 05:05 Large Platelets Few 01/09/17 05:05 Giant Platelets Not Reportable 01/09/17 05:05 Platelet Satelliting Not Reportable 01/09/17 05:05 Plt Morphology Comment Not Reportable 01/09/17 05:05 RBC Morphology Not Reportable 01/09/17 05:05 Dimorphic RBCs Not Reportable 01/09/17 05:05 Polychromasia Not Reportable 01/09/17 05:05 Hypochromasia 1+ 01/09/17 05:05 Poikilocytosis Not Reportable 01/09/17 05:05 Anisocytosis 2+ 01/09/17 05:05 Microcytosis Not Reportable 01/09/17 05:05 Macrocytosis Not Reportable 01/09/17 05:05 Spherocytes Not Reportable 01/09/17 05:05 Pappenheimer Bodies Not Reportable 01/09/17 05:05 Sickle Cells Not Reportable 01/09/17 05:05 Target Cells Not Reportable 01/09/17 05:05 Tear Drop Cells Not Reportable 01/09/17 05:05 Ovalocytes Not Reportable 01/09/17 05:05 Helmet Cells Not Reportable 01/09/17 05:05 [place] Bodies Not Reportable 01/09/17 05:05 [place] Rings Not Reportable 01/09/17 05:05 [place] Cells Not Reportable 01/09/17 05:05 Bite Cells Not Reportable 01/09/17 05:05 Crenated Cell Not Reportable 01/09/17 05:05 Elliptocytes 1+ 01/09/17 05:05 Acanthocytes (Spur) Not Reportable 01/09/17 05:05 Rouleaux Not Reportable 01/09/17 05:05 Hemoglobin C Crystals Not Reportable 01/09/17 05:05 Schistocytes Not Reportable 01/09/17 05:05 Malaria parasites Not Reportable 01/09/17 05:05 [place] Bodies Not Reportable 01/09/17 05:05 Hem Pathologist Commnt No 01/09/17 05:05 POC ABG pH 7.505 (7.35-7.45) H 01/08/17 11:48 POC ABG pCO2 30.6 (35-45) L 01/08/17 11:48 POC ABG pO2 94 (80-105) 01/08/17 11:48 POC ABG HCO3 24.2 01/08/17 11:48 POC ABG Total CO2 25 01/08/17 11:48 POC ABG O2 Sat 98 01/08/17 11:48 POC ABG Base Excess 1 01/08/17 11:48 VBG pH 7.401 (7.320-7.420) 01/01/17 00:47 FiO2 21 % 01/08/17 11:48 Sodium 141 mmol/L (137-145) 01/09/17 05:05 Potassium 4.3 mmol/L (3.6-5.0) 01/09/17 05:05 Chloride 102.4 mmol/L (98-107) 01/09/17 05:05 Carbon Dioxide 27 mmol/L (22-30) 01/09/17 05:05 Anion Gap 16 mmol/L 01/09/17 05:05 BUN 16 mg/dL (9-20) 01/09/17 05:05 Creatinine 1.2 mg/dL (0.8-1.5) 01/09/17 05:05 Estimated GFR > 60 ml/min 01/09/17 05:05 BUN/Creatinine Ratio 13.33 % 01/09/17 05:05 Glucose 122 mg/dL (75-100) H 01/09/17 05:05 POC Glucose 95 (70-105) 01/10/17 08:04 Lactic Acid 1.4 mmol/L (0.7-2.0) 01/02/17 04:41 Calcium 8.6 mg/dL (8.4-10.2) 01/09/17 05:05 Phosphorus 2.9 mg/dL (2.5-4.5) 01/04/17 04:21 Magnesium 2.2 mg/dL (1.7-2.3) 01/09/17 05:05 Total Bilirubin 0.4 mg/dL (0.1-1.2) 01/01/17 00:47 Direct Bilirubin < 0.2 mg/dL (0-0.2) 01/01/17 00:47 Indirect Bilirubin 0.2 mg/dL 01/01/17 00:47 AST 49 units/L (5-40) H 01/01/17 00:47 ALT 39 units/L (7-56) 01/01/17 00:47 Alkaline Phosphatase 75 units/L (35-129) 01/01/17 00:47 Total Creatine Kinase 170 units/L (55-170) 01/01/17 00:47 CK-MB (CK-2) < 1.0 ng/mL (0.0-4.0) 01/01/17 00:47 Troponin T < 0.010 ng/mL (0.00-0.029) 01/01/17 00:47 NT-Pro-B Natriuret Pep 482.5 pg/mL (0-900) 01/01/17 00:47 Total Protein 8.2 g/dL (6.3-8.2) 01/01/17 00:47 Albumin 4.1 g/dL (3.9-5) 01/01/17 00:47 Albumin/Globulin Ratio 1.0 % 01/01/17 00:47 Angiotensin Convert Enz See scanned report 01/03/17 19:00 Urine Color Yellow (Yellow) 01/01/17 04:15 Urine Turbidity Clear (Clear) 01/01/17 04:15 Urine pH 5.0 (5.0-7.0) 01/01/17 04:15 Ur Specific [place] 1.023 (1.003-1.030) 01/01/17 04:15 Urine Protein 30 mg/dl mg/dL (Negative) 01/01/17 04:15 Urine Glucose (UA) 150 mg/dL (Negative) 01/01/17 04:15 Urine Ketones Tr mg/dL (Negative) 01/01/17 04:15 Urine Blood Neg (Negative) 01/01/17 04:15 Urine Nitrite Neg (Negative) 01/01/17 04:15 Ur Reducing Substances Not Reportable 01/01/17 04:15 Urine Bilirubin Neg (Negative) 01/01/17 04:15 Urine Ictotest Not Reportable 01/01/17 04:15 Urine Urobilinogen < 2.0 mg/dL (<2.0) 01/01/17 04:15 Ur Leukocyte Esterase Neg (Negative) 01/01/17 04:15 Urine WBC (Auto) 2.0 /HPF (0.0-6.0) 01/01/17 04:15 Urine RBC (Auto) 1.0 /HPF (0.0-6.0) 01/01/17 04:15 U Epithel Cells (Auto) < 1.0 /HPF (0-13.0) 01/01/17 04:15 Urine Mucus Few /HPF 01/01/17 04:15 MARGI Screen Negative (Negative) 01/03/17 19:00 Urine Legionella Ag Not detected (Not Detected) 01/01/17 04:26 TB (QFT) Gold In Tube Negative (Negative) 01/07/17 07:52 TB Test (QFT) Nil 0.11 IU/mL 01/07/17 07:52 TB Test Mitogen - Nil 9.53 IU/mL 01/07/17 07:52 TB Test Antigen - Nil 0.02 IU/mL 01/07/17 07:52
[2017-01-13] MEDS: TUMS PO SCH ×2 (11:00→23:16)
--- NOTE | 2017-01-13 19:45 | Progress Note ---
Assessment and Plan Patient alert,awake and resting on room air. Still complaining some cough.No acute respiratory distress.Patient afebrile. I was told one sputum for AFB and PPD are negativePatients O2 satuaration 96% on room air. Called the Lab. Lab told me AFB sputum smears still pending.If sputums for AFB smear Negative, Patient can be discharged. - Patient Problems (1) Bronchiectasis with (acute) exacerbation Current Visit: Yes Status: Acute Plan to address problem: Continue present antibiotics Continue aerosolized bronchodilators. PFTs as outpatient Respiratory isolation. Subjective Date of service: 01/13/17 Principal diagnosis: Pneumonia; Acute Bronchiectasis exacerbation Interval history: Patient alert,awake and resting on room air. Still complaining some cough.No acute respiratory distress.Patient afebrile. I was told two sputums for AFB and PPD are negative Patients O2 satuaration 96% on room air. Since patients sputums are negative for AFB and PPD negative. Patient afebrile and no leukocytosis.Can D/C respiratory isolation. Patient can be discharged from pulmonary point of view. Objective Constitutional: no acute distress, alert Eyes: non-icteric ENT: oropharynx moist Neck: supple, no lymphadenopathy Effort: normal Ascultation: Left: rales (base), rhonchi, Bilateral: diminished breath sounds Cardiovascular: regular rate and rhythm Gastrointestinal: normoactive bowel sounds, soft, non-tender, non-distended Integumentary: normal Extremities: no cyanosis, no edema, pink and warm, pulses normal, no ischemia or petechiae Neurologic: normal mental status, non-focal exam, pupils equal and round, CN II- XII normal Psychiatric: mood appropriate, affect normal CBC and BMP: 01/09/17 05:05 01/09/17 05:05 ABG, PT/INR, D-dimer: ABG POC ABG pH 7.505 (7.35-7.45) H 01/08/17 11:48 POC ABG pCO2 30.6 (35-45) L 01/08/17 11:48 POC ABG pO2 94 (80-105) 01/08/17 11:48 POC ABG HCO3 24.2 01/08/17 11:48 POC ABG Total CO2 25 01/08/17 11:48 POC ABG O2 Sat 98 01/08/17 11:48 Abnormal lab findings: Abnormal Labs 01/01/17 01/02/17 01/02/17 15:21 04:41 04:41 WBC RBC 5.25 H Hgb Hct MCV 72 L MCH 23 L MCHC 31 L RDW 15.3 H Plt Count Lymph % (Auto) [place] % (Auto) Lymph # 0.9 L Seg Neutrophils % 78.0 H Seg Neuts % (Manual) Monocytes % (Manual) Seg Neutrophils # Lymphocytes # (Manual) POC ABG pH POC ABG pCO2 Sodium Potassium Glucose 148 H POC Glucose 128 H Calcium 7.6 L 01/03/17 01/04/17 01/04/17 04:34 04:21 04:21 WBC 3.6 L RBC Hgb 11.0 L Hct 35.1 L MCV 71 L MCH 22 L MCHC 31 L RDW Plt Count 139 L Lymph % (Auto) [place] % (Auto) 13.5 H Lymph # 0.9 L Seg Neutrophils % Seg Neuts % (Manual) Monocytes % (Manual) Seg Neutrophils # Lymphocytes # (Manual) POC ABG pH POC ABG pCO2 Sodium 135 L Potassium 3.4 L Glucose 104 H 179 H POC Glucose Calcium 7.4 L 7.7 L 01/05/17 01/05/17 01/08/17 04:22 04:22 04:11 WBC 3.8 L RBC 5.05 H Hgb 11.4 L Hct MCV 71 L MCH 23 L MCHC RDW Plt Count Lymph % (Auto) 39.3 H [place] % (Auto) 14.6 H Lymph # Seg Neutrophils % Seg Neuts % (Manual) Monocytes % (Manual) Seg Neutrophils # 1.7 L Lymphocytes # (Manual) POC ABG pH POC ABG pCO2 Sodium Potassium Glucose 164 H 134 H POC Glucose Calcium 8.3 L 01/08/17 01/09/17 01/09/17 11:48 05:05 05:05 WBC RBC 5.22 H Hgb 11.7 L Hct MCV 71 L MCH 23 L MCHC RDW Plt Count Lymph % (Auto) [place] % (Auto) Lymph # Seg Neutrophils % Seg Neuts % (Manual) 71.0 H Monocytes % (Manual) 10.0 H Seg Neutrophils # Lymphocytes # (Manual) 1.1 L POC ABG pH 7.505 H POC ABG pCO2 30.6 L Sodium Potassium Glucose 122 H POC Glucose Calcium
[2017-01-13] MEDS: ZITHROMAX 500 MG in NACL 0.9% 250ML 250 ML IV SCH (23:12)
[2017-01-14] MEDS: TUMS PO SCH (09:27)
[2017-01-14] MEDS: ROCEPHIN/NS 1 GM/50 ML 1 GM/50 ML BAG IV SCH (09:27)
[2017-01-14] MEDS: LOVENOX SUB-Q SCH (09:27)
[2017-01-14 09:59] VITALS: BP 123/69
--- NOTE | 2017-01-14 11:11 | Discharge Summary ---
Providers - Providers Date of Admission: 01/01/17 02:17 Date of discharge: 01/14/17 Attending physician: FLAKITA DE LA TORRE 01/03/17 13:50 Consult to Physician [CONS] Routine Consulting Provider: RICK TIDWELL Reason For Exam: carli pneumonia/interstitial/honey combing lt Place consult to:: dr. tidwell Notified:: yes Was contact made?: Yes Primary care physician: SURVEY TECHNICIAN Hospitalization Reason for admission: cough Condition: Stable Hospital course: 6-year-old [place]haric man with no significant past medical history presented to the emergency department with complaints of cough productive of yellowish to greenish sputum, fever, chills, generalized weakness and pleuritic chest pain. Patient took [id number] pain medication and cough medications with no improvement. Patient underwent CT scan which revealed regional multicystic appearance with cavitary areas of pneumatocele and probable areas of cystic bronchiectasis of the left lower lobe of indeterminate etiology. Patient also has some mild pleural thickening and prominent vascular supply emanating from the left infrahilar area to the left lower lobe. Mediastinal and hilar adenopathy. Patient was admitted with diagnosis of acute exacerbation of bronchiectasis/pneumonia. Patient was treated with IV antibiotics and aerosolized bronchodilators. She was maintained on respiratory isolation for sputum AFB. AFB was found to be negative. Blood cultures and sputum culture were found to be negative. Patient also had other comp case with hyponatremia and hypokalemia which was repleted. Recommendations were for discharge home for by mouth antibiotics and follow with pulmonary as an outpatient. Dedicated discharge time 35 minutes. Disposition: DISCHARGED TO HOME OR SELFCARE Time spent for discharge: 35 - Discharge Diagnoses (1) Bronchiectasis with (acute) exacerbation Status: Acute (2) Hypokalemia Status: Acute (3) Hyponatremia Status: Acute (4) Pneumonia Status: Acute Qualifiers: Pneumonia type: P Aspiration pneumonia type: A Laterality: L Lung location: L Core Measure Documentation - Palliative Care Palliative Care/ Comfort Measures: Not Applicable - Core Measures Any of the following diagnoses?: none Exam - Constitutional Vitals: Temp Pulse Resp BP Pulse Ox 97.1 F L 72 16 123/69 95 01/14/17 08:00 01/14/17 08:00 01/14/17 08:00 01/14/17 08:00 01/14/17 08:00 General appearance: Present: no acute distress, well-nourished - EENT Eyes: Present: PERRL ENT: hearing intact, clear oral mucosa - Neck Neck: Present: supple, normal ROM - Respiratory Respiratory effort: normal Respiratory: bilateral: CTA - Cardiovascular Heart Sounds: Present: S1 & S2. Absent: rub, click - Extremities Extremities: pulses symmetrical, No edema Peripheral Pulses: within normal limits - Abdominal General gastrointestinal: Present: soft, non-tender, non-distended, normal bowel sounds Male genitourinary: Present: normal - Integumentary Integumentary: Present: clear, warm, dry - Musculoskeletal Musculoskeletal: gait normal, strength equal bilaterally - Psychiatric Psychiatric: appropriate mood/affect, intact judgment & insight - Neurologic Neurologic: CNII-XII intact, moves all extremities Plan Activity: no restrictions Weight Bearing Status: Full Weight Bearing Diet: regular Follow up with: PRIMARY CARE,MD [Primary Care Provider] - 3-5 Days Prescriptions: ALBUTEROL NEB's [Proventil 0.083% NEBS] 2.5 mg IH Q4HRT PRN #30 nebu PRN Reason: Shortness Of Breath Azithromycin [Zithromax TAB] 500 mg PO QDAY #7 tablet Cefuroxime Axetil [Ceftin] 500 mg PO Q12H #14 tablet guaiFENesin DM [Robitussin Dm] 10 ml PO Q4H PRN #30 oral.liqd PRN Reason: Cough
--- NOTE | 2017-01-14 12:48 | Progress Note ---
Assessment and Plan Patient says feeling good. No complaint of chest pain,shortness of breath, or cough. Patient afebrile, no leukocytosis.Patients sputum for AFB negative. Other sputums are contaminated.Patients PPD is negative. Patient has no signs of active TB at this time.Patient has bronchiectasis. Patient can be discharged from pulmonary point of view. Pulmonary follow up with my office in 2 weeks. - Patient Problems (1) Bronchiectasis with (acute) exacerbation Current Visit: Yes Status: Acute Plan to address problem: Change to po antibiotics Continue aerosolized bronchodilators. PFTs as outpatient D/C Respiratory isolation. Can be discharged from pulmonary point of view. Subjective Date of service: 01/14/17 Principal diagnosis: Pneumonia; Acute Bronchiectasis exacerbation Interval history: Patient says feeling good. No complaint of chest pain,shortness of breath, or cough. Patient afebrile, no leukocytosis.Patients sputum for AFB negative. Other sputums are contaminated.Patients PPD is negative. Patient has no signs of active TB at this time.Patient has bronchiectasis. Patient can be discharged from pulmonary point of view. Pulmonary follow up with my office in 2 weeks. Objective Vital Signs - 12hr 01/14/17 01/14/17 01/14/17 00:59 05:03 08:00 Temperature 98.1 F 98.1 F 97.1 F L Pulse Rate [ 90 82 72 Right] Respiratory 20 16 Rate Blood Pressure 122/78 123/70 123/69 O2 Sat by Pulse 95 Oximetry Constitutional: no acute distress, alert Eyes: non-icteric ENT: oropharynx moist Neck: supple, no lymphadenopathy Effort: normal Ascultation: Left: rales (base), rhonchi, Bilateral: diminished breath sounds Cardiovascular: regular rate and rhythm Gastrointestinal: normoactive bowel sounds, soft, non-tender, non-distended Integumentary: normal Extremities: no cyanosis, no edema, pink and warm, pulses normal, no ischemia or petechiae Neurologic: normal mental status, non-focal exam, pupils equal and round, CN II- XII normal Psychiatric: mood appropriate, affect normal CBC and BMP: 01/09/17 05:05 01/09/17 05:05 ABG, PT/INR, D-dimer: ABG POC ABG pH 7.505 (7.35-7.45) H 01/08/17 11:48 POC ABG pCO2 30.6 (35-45) L 01/08/17 11:48 POC ABG pO2 94 (80-105) 01/08/17 11:48 POC ABG HCO3 24.2 01/08/17 11:48 POC ABG Total CO2 25 01/08/17 11:48 POC ABG O2 Sat 98 01/08/17 11:48 Abnormal lab findings: Abnormal Labs 01/01/17 01/02/17 01/02/17 15:21 04:41 04:41 WBC RBC 5.25 H Hgb Hct MCV 72 L MCH 23 L MCHC 31 L RDW 15.3 H Plt Count Lymph % (Auto) [place] % (Auto) Lymph # 0.9 L Seg Neutrophils % 78.0 H Seg Neuts % (Manual) Monocytes % (Manual) Seg Neutrophils # Lymphocytes # (Manual) POC ABG pH POC ABG pCO2 Sodium Potassium Glucose 148 H POC Glucose 128 H Calcium 7.6 L 01/03/17 01/04/17 01/04/17 04:34 04:21 04:21 WBC 3.6 L RBC Hgb 11.0 L Hct 35.1 L MCV 71 L MCH 22 L MCHC 31 L RDW Plt Count 139 L Lymph % (Auto) [place] % (Auto) 13.5 H Lymph # 0.9 L Seg Neutrophils % Seg Neuts % (Manual) Monocytes % (Manual) Seg Neutrophils # Lymphocytes # (Manual) POC ABG pH POC ABG pCO2 Sodium 135 L Potassium 3.4 L Glucose 104 H 179 H POC Glucose Calcium 7.4 L 7.7 L 01/05/17 01/05/17 01/08/17 04:22 04:22 04:11 WBC 3.8 L RBC 5.05 H Hgb 11.4 L Hct MCV 71 L MCH 23 L MCHC RDW Plt Count Lymph % (Auto) 39.[address] [place] % (Auto) 14.6 H Lymph # Seg Neutrophils % Seg Neuts % (Manual) Monocytes % (Manual) Seg Neutrophils # 1.7 L Lymphocytes # (Manual) POC ABG pH POC ABG pCO2 Sodium Potassium Glucose 164 H 134 H POC Glucose Calcium 8.3 L 01/08/17 01/09/17 01/09/17 11:48 05:05 05:05 WBC RBC 5.22 H Hgb 11.7 L Hct MCV 71 L MCH 23 L MCHC RDW Plt Count Lymph % (Auto) [place] % (Auto) Lymph # Seg Neutrophils % Seg Neuts % (Manual) 71.0 H Monocytes % (Manual) 10.0 H Seg Neutrophils # Lymphocytes # (Manual) 1.1 L POC ABG pH 7.505 H POC ABG pCO2 30.6 L Sodium Potassium Glucose 122 H POC Glucose Calcium
== END 2017-01-14 14:25 | disposition home or self-care (01) | DRG 871 ==
LOC: ED 17:09 → 3A 01-01 02:17 → CC2 01-01 03:55
PROVIDERS: ADMIT Internal Medicine; ATTEND Hospitalist
PROC: 4A033R1 Measurement of Arterial Saturation, Peripheral, Percutaneous Approach (ICD-10-PCS; principal; 2017-01-08)
DX: A41.9 Sepsis, unspecified organism (principal); J18.9 Pneumonia, unspecified organism; E87.1 Hypo-osmolality and hyponatremia; J47.1 Bronchiectasis with (acute) exacerbation; J84.10 Pulmonary fibrosis, unspecified; E87.6 Hypokalemia; R65.20 Severe sepsis without septic shock; Z87.891 Personal history of nicotine dependence
CPT/HCPCS: 36415; 36600; 71020; 71260; 80048; 80074; 81001; 82140; 82164; 82550; 82553; 82803; 82805; 82962; 83735; 83880; 84100; 84484; 85007; 85025; 86038; 87040; 87070; 87076; 87086; 87116; 87186; 87205; 87400; 87430; 87449; 90686; 90732; 93005; 93010; 94640; 96365; 96367; 96375; J0456; J0696; J1650; J1940; J2405; J3475; J3480; J7030; J7040; J7050; J7120; Q9967